=== PATIENT | male | born 1955 | race Caucasian/White ===

== ENCOUNTER 2019-12-02 10:19 | Outpatient (CLI) | payer OTHER, SELFPAY ==
[2019-12-02 11:36] LABS: Alanine Aminotransferase 70 U/L (4-50); Albumin Level 4.3 g/dL (3.5-5.1); Alkaline Phosphatase 70 U/L (38-126); Aspartate Amino Transferase 51 U/L (17-59); Bilirubin,Total 0.7 mg/dL (0.2-1.3); Blood Urea Nitrogen 16 mg/dL (9-20); Calcium 9.6 mg/dL (8.4-10.2); Carbon Dioxide 23 mmol/L (22-30); Chloride 105 mmol/L (98-107); Cholesterol 127 mg/dL (0-200); Estimated Glomerular Filt Rate > 60; Glucose 108 mg/dL (75-110); HDL Direct 38 mg/dL; Potassium 4.3 mmol/L (3.4-5.0); Sodium 140 mmol/L (137-145); Triglycerides 101 mg/dL (<150)
[2019-12-02 11:46] LABS: LDL Cholesterol Direct 77 mg/dL
[2019-12-02 11:59] LABS: Hemoglobin A1C 7.2 % (<5.7)
== END 2019-12-02 10:20 | disposition home or self-care (01) ==
LOC: ANHLAB 10:21
PROVIDERS: PCP Family Medicine; Visit Provider Family Medicine
DX: T78.3XXA Angioneurotic edema, initial encounter (principal); E11.65 Type 2 diabetes mellitus with hyperglycemia
CPT/HCPCS: 36415; 80053; 80061; 83036; 84443

== ENCOUNTER 2020-01-14 21:41 | Emergency (ER) | payer OTHER, SELFPAY ==
--- NOTE | ~2020-01-14 | XR_ITS ---
EXAMINATION: XR chest 2V DATE: 01/14/2020 22:12 INDICATION: Left-sided predominant anterior upper chest pain. TECHNIQUE: PA and lateral views of the chest were obtained. COMPARISON: Chest radiograph dated 02/22/2019 FINDINGS: Lung volumes are decreased. No focal airspace opacities, pulmonary edema, pleural effusion or pneumot horax. Borderline heart size. Cholecystectomy clips in the right upper quadrant. IMPRESSION: 1. Borderline heart size. No acute cardiopulmonary disease. Reviewed, dictated and finalized at location A.
[2020-01-14 21:44] VITALS: BP 200/108; PULSE 108; PULSE 110; RESP 23; TEMP 36.5; O2SAT 100
--- NOTE | 2020-01-14 21:46 | ED.CHESTPAIN ---
HPI - Chest Pain General Chief Complaint: Chest Pain Stated Complaint: chest pain/sob Time Seen by Provider: 01/14/20 21:43 Source: patient and RN notes reviewed Mode of arrival: other Limitations: no limitations History of Present Illness HPI narrative: Pt is a 64 y/o male who presents to the ED with c/o left sided chest pain that radiates down his left arm that began around 20:30 today. Pt describes his pain as squeezing. Pt states that before he had his first stent placed his pain felt like heartburn and then like someone punched him in the chest. Pt denies his pain being similar to having a stent placed. Pt states that his pulse rate was in the 120s while at rest and his blood pressure was high. He states that the last blood pressure reading was 200/110. Pt also reports dyspnea, but he states that he might be feeling short of breath d/t anxiety. Pt also reports a cough, but denies chest congestion, fever, nausea, vomiting, poor appetite, leg pain, and leg swelling. Pt takes ASA 81 mg daily. Pt's cloth colors examiner is Dr. Booker. complaint: chest pain Pertinent past history: prior [facility] Onset (ago): hour(s) (2) Timing of current episode: constant Prior episodes: Yes Onset: during rest Pain location: left chest Pain radiation: left arm Quality: other (squeezing) Associated symptoms: dyspnea and cough Related Data Home Medications Medication Instructions Recorded Confirmed aspirin 81 mg tablet,delayed 81 mg PO DAILY 10/26/19 release atorvastatin 40 mg tablet 40 mg PO DAILY 10/26/19 01/14/20 clopidogrel 75 mg tablet 75 mg PO DAILY 10/26/19 01/14/20 metoprolol succinate 25 mg 25 mg PO DAILY 10/26/19 01/14/20 tablet,extended release 24 hr multivitamin 1 tablet PO DAILY 10/26/19 01/14/20 pantoprazole 40 mg tablet,delayed 40 mg PO BID tablet 10/26/19 01/14/20 release Allergies Allergy/AdvReac Type Severity Reaction Status Date / Time No Known Allergies Allergy Unknown Verified 01/14/20 21:55 Review of Systems Review of Systems: All systems reviewed & are unremarkable except as noted in HPI and below Constitutional: Constitutional: Denies fever(s) and Denies poor appetite Cardiovascular: Cardiovascular: Reports chest pain (left sided, radiates to left arm) and Denies leg edema Respiratory: Respiratory: Denies chest congestion, Reports cough and Reports dyspnea Gastrointestinal: Gastrointestinal: Denies nausea and Denies vomiting Musculoskeletal: Musculoskeletal: Denies other (leg pain) [facility] Past Medical History Medical History (Updated 01/15/20 @ 01:27 by Antonio Lamas MD) Atherosclerotic heart disease of [place] coronary artery with other forms of angina pectoris Chronic ischemic heart disease, unspecified Essential (primary) hypertension Gastritis/duodenitis Gastroesophageal reflux disease with esophagitis Hypothyroidism (acquired) Mixed hyperlipidemia Myocardial infarction (~2011) Tinnitus, unspecified ear Unspecified hearing loss Unspecified sleep apnea Surgical History Surgical History History of arthroscopy of knee (~2008) History of arthroscopy of knee (~1990) History of cardiac catheterization (~2016) History of cardiac catheterization (~2012) History of cardiac catheterization (~2010) History of heart artery stent History of vasectomy (~1997) Hx of cholecystectomy (~07/02/09) Hx of gastric bypass Social History Social History Smoking status: Never smoker Alcohol intake: never Gender identity (if verbalized by the patient): Male Exam Const: General: healthy appearing and no acute distress Nutritional Appearance: obese HENMT: Mouth: Yes lip normal and Yes moist mucous membranes Eyes: Conjunctivae: conjunctivae normal Pupils: Equal, round and reactive pupils present Resp: Effort & Inspection: normal respiratory effort Auscultation: clear to auscultation
--- NOTE | 2020-01-14 21:47 | ECG_ITS ---
Measurements Intervals [place] Rate: 107 P: 19 FL: 199 QRS: 81 QRSD: 92 T: 4 QT: 318 QTc: 425 Interpretive Statements SINUS TACHYCARDIA BORDERLINE R WAVE PROGRESSION, ANTERIOR LEADS NONSPECIFIC T-WAVE ABNORMALITY- INFERIOR LEADS ABNORMAL ECG Electronically Signed On 01-15-2020 7:18:30 CDT by Fito Louie D.O.
[2020-01-14 21:53] LABS: Basophils Absolute Auto 0.1 K/mm3 (0.0-0.1); Basophils Percent Auto 0.5 % (0.2-1.2); Eosinophils Absolute Auto 0.1 K/mm3 (0-0.3); Eosinophils Percent Auto 1.2 % (0-4.4); Hematocrit 51.3 % (42.0-52.0); Hemoglobin 16.5 g/dL (14.0-18.0); Immature Granulocyte Absolute 0.05 K/mm3 (0.00-0.031); Immature Granulocyte Percent A 0.5 % (0-0.5); Lymphocytes Absolute Auto 2.44 K/mm3 (0.9-3.2); Lymphocytes Percent Auto 25.8 % (18.3-44.2); Mean Corpuscular HGB Conc 32.2 g/dl (32-36); Mean Corpuscular Hemoglobin 28.4 pg (26-34); Mean Corpuscular Volume 88.3 fl (80-100); Mean Platelet Volume 9.9 fl (7.4-10.4); Monocytes Absolute Auto 0.9 K/mm3 (0.1-0.6); Monocytes Percent Auto 9.4 % (2.6-8.5); Neutrophils Absolute Auto 5.9 K/mm3 (1.3-6.7); Neutrophils Percent Auto 62.6 % (45.5-73.1); Platelet Count Result 181 k/mm3 (150-375); Red Blood Count 5.81 M/mm3 (4.6-6.20); Red Cell Distribution Width 14.2 % (11.5-14.5); White Blood Count 9.5 K/mm3 (4.5-10.0)
[2020-01-14] MEDS: ASPIRIN 81 MG CHEWABLE TABLET 324 MG PO (21:59)
[2020-01-14 22:03] LABS: Prothrombin Time 12.5 Seconds (11.1-14.7)
[2020-01-14 22:04] LABS: Blood Urea Nitrogen 16 mg/dL (9-20); Calcium 9.1 mg/dL (8.4-10.2); Carbon Dioxide 24 mmol/L (22-30); Chloride 103 mmol/L (98-107); Estimated CRCL calculation 92 ml/min; Estimated Glomerular Filt Rate > 60; Glucose 192 mg/dL (75-110); Partial Thromboplastin Time 26.7 SECONDS (22.3-36.8); Sodium 137 mmol/L (137-145)
--- NOTE | 2020-01-14 22:09 | PC.NURSE ---
PT taken to Xray
[2020-01-14 22:16] LABS: Troponin I < 0.012 ng/mL (0.000-0.034)
--- NOTE | 2020-01-14 22:27 | PC.NURSE ---
Pt offered Nitro per orders. Pt states that he would rather not take if he doesnt have to . Pt states that Nitro makes him lightheaded. Informed Dr. Vazquez of this.
[2020-01-14 23:01] VITALS: BP 146/87; O2SAT 96
[2020-01-14 23:16] VITALS: BP 136/88; O2SAT 96
[2020-01-14 23:31] VITALS: BP 132/91; PULSE 83; RESP 19; O2SAT 97
[2020-01-14 23:46] VITALS: BP 127/85; PULSE 85; RESP 17; O2SAT 97
[2020-01-15] VITALS (7 sets, daily range): BP systolic 113–132; BP diastolic 69–92; PULSE 74–80; RESP 13–21; O2SAT 96–98
[2020-01-15 01:16] LABS: Troponin I < 0.012 ng/mL (0.000-0.034)
== END 2020-01-15 01:40 | disposition home or self-care (01) ==
PROVIDERS: Emergency Provider Emergency Medicine; PCP Family Medicine
DX: R07.9 Chest pain, unspecified (principal); Z95.5 Presence of coronary angioplasty implant and graft; I25.10 Atherosclerotic heart disease of native coronary artery without angina pectoris; I25.9 Chronic ischemic heart disease, unspecified; I10 Essential (primary) hypertension; K21.0 Gastro-esophageal reflux disease with esophagitis; E03.8 Other specified hypothyroidism; E78.2 Mixed hyperlipidemia; I25.2 Old myocardial infarction; G47.30 Sleep apnea, unspecified; Z79.82 Long term (current) use of aspirin; Z98.84 Bariatric surgery status; R00.0 Tachycardia, unspecified; R94.31 Abnormal electrocardiogram [ECG] [EKG]
CPT/HCPCS: 36415; 71046; 80048; 84484; 85025; 85610; 85730; 93005; 99284; A9270

== ENCOUNTER 2020-02-14 16:39 | Observation (INO) | payer OTHER, SELFPAY ==
[2020-02-14] VITALS (12 sets, daily range): BP systolic 125–159; BP diastolic 81–94; PULSE 67–98; RESP 17–20; TEMP 36.6–36.8; O2SAT 93–100; BMI 37.0
--- NOTE | ~2020-02-14 | NM_ITS ---
EXAMINATION: NM regi stress w perfusion DATE: 02/15/2020 15:42 CDT INDICATION: Atypical chest pain TECHNIQUE: Rest images were obtained following intravenous administration of 9.9 mCi Tc99m tetrofosmi n (Myoview). The patient was infused intravenously with Lexiscan (regadenoson). Then, 30.5 mCi Tc99m tetrofosmin (Myoview) was administered intravenously, and stress images were obtained. Data was recon structed into short axis and horizontal and vertical long axis SPECT images. Gated SPECT images were also obtained. COMPARISON: None. FINDINGS: There is no definite reversible or fixed perfusion abnormality to suggest ischemia or infar ction. There is no segmental wall motion abnormality. Left ventricular ejection fraction measures 6 7%. IMPRESSION: 1. No definite ischemia or infarct. 2. Normal left ventricular ejection fraction measuring 67%. Reviewed, dictated and finalized at location A.
--- NOTE | ~2020-02-14 | XR_ITS ---
EXAMINATION: XR chest 2V EXAM DATE: 02/14/2020 17:39 INDICATION: Midsternal chest pain, left-sided jaw pain. TECHNIQUE: Frontal and lateral projections of the chest obtained and reviewed. Comparison is made to prior examination from 01/14/2020. FINDINGS: There are cholecystectomy clips. The lungs are clear. There are no pleural effusions. The cardiomediastinal silhouette is within normal limits. There is no pneumothorax suspected. The bone s and soft tissues are unremarkable. IMPRESSION: No acute cardiopulmonary findings. Reviewed, dictated and finalized at location A.
--- NOTE | 2020-02-14 16:45 | ECG_ITS ---
Measurements Intervals [place] Rate: 92 P: 23 ID: [id number] QRS: 93 QRSD: 86 T: 27 QT: 326 QTc: 404 Interpretive Statements SINUS RHYTHM RIGHT AXIS DEVIATION BORDERLINE R WAVE PROGRESSION, ANTERIOR LEADS BORDERLINE ECG Electronically Signed On 02-15-2020 7:07:09 CDT by Fito Louie D.O.
[2020-02-14 17:37] LABS: Basophils Absolute Auto 0.1 K/mm3 (0.0-0.1); Basophils Percent Auto 0.7 % (0.2-1.2); Eosinophils Absolute Auto 0.1 K/mm3 (0-0.3); Eosinophils Percent Auto 0.9 % (0-4.4); Hematocrit 49.3 % (42.0-52.0); Immature Granulocyte Absolute 0.03 K/mm3 (0.00-0.031); Immature Granulocyte Percent A 0.4 % (0-0.5); Lymphocytes Absolute Auto 1.67 K/mm3 (0.9-3.2); Lymphocytes Percent Auto 22.6 % (18.3-44.2); Mean Corpuscular HGB Conc 32.5 g/dl (32-36); Mean Corpuscular Hemoglobin 28.5 pg (26-34); Mean Corpuscular Volume 87.9 fl (80-100); Mean Platelet Volume 9.9 fl (7.4-10.4); Monocytes Absolute Auto 0.7 K/mm3 (0.1-0.6); Neutrophils Absolute Auto 4.8 K/mm3 (1.3-6.7); Neutrophils Percent Auto 65.4 % (45.5-73.1); Platelet Count Result 168 k/mm3 (150-375); Red Blood Count 5.61 M/mm3 (4.6-6.20); Red Cell Distribution Width 13.9 % (11.5-14.5); White Blood Count 7.4 K/mm3 (4.5-10.0)
--- NOTE | 2020-02-14 17:37 | ED.CHESTPAIN ---
HPI - Chest Pain General Chief Complaint: Chest Pain Stated Complaint: CP,COUGH, UPPER BACK PAIN X FEW DAYS Time Seen by Provider: 02/14/20 17:31 Source: patient Mode of arrival: ambulatory Limitations: no limitations History of Present Illness MD complaint: chest pain Onset (ago): day(s) (1) Prior episodes: Yes Onset: during rest and during exertion Pain location: substernal Pain radiation: jaw/teeth Pain scale (0-10): 4 Quality: tightness Relieving factors: nothing Exacerbating factors: nothing Associated symptoms: nausea and dyspnea Treatment prior to arrival: aspirin Risk Factors Coronary artery disease risk factors: hyperlipidemia and hypertension Related Data Home Medications Medication Instructions Recorded Confirmed aspirin 81 mg tablet,delayed 81 mg PO DAILY 10/26/19 02/14/20 release atorvastatin 40 mg tablet 40 mg PO DAILY 10/26/19 02/14/20 clopidogrel 75 mg tablet 75 mg PO DAILY 10/26/19 02/14/20 metoprolol succinate 25 mg 25 mg PO DAILY 10/26/19 02/14/20 tablet,extended release 24 hr multivitamin 1 tablet PO DAILY 10/26/19 02/14/20 pantoprazole 40 mg tablet,delayed 40 mg PO BID tablet 10/26/19 02/14/20 release lisinopril 10 mg PO DAILY 02/14/20 02/14/20 metformin [Glucophage XR] 500 mg PO BID 02/14/20 02/14/20 Allergies Allergy/AdvReac Type Severity Reaction Status Date / Time No Known Allergies Allergy Unknown Verified 02/14/20 16:54 Review of Systems Review of Systems: All systems reviewed & are unremarkable except as noted in HPI and below Constitutional: Constitutional: Denies body ache(s), Denies chills, Denies excessive sweating, Denies fatigue, Denies fever(s), Denies headache(s), Denies lethargy, Denies malaise, Denies weakness and Denies weight loss Eyes: Eyes: Denies blurry vision, Denies change in vision and Denies loss of vision ENT: Denies dizziness, Denies ear discharge, Denies headache(s), Denies lip swelling, Denies epistaxis, Denies nasal congestion, Denies neck pain, Denies throat swelling and Denies tongue swelling Cardiovascular: Cardiovascular: Denies diaphoresis, Denies rapid heart rate, Denies edema, Denies irregular heart rhythm, Denies lightheadedness, Denies palpitations, Denies dyspnea and Denies dyspnea on exertion Respiratory: Respiratory: Denies chest congestion, Denies cough and Denies hemoptysis Gastrointestinal: Gastrointestinal: Denies abdominal pain, Denies melena, Denies hematochezia, Denies diarrhea, Denies vomiting and Denies hematemesis Musculoskeletal: Musculoskeletal: Denies abnormal gait, Denies deformity, Denies joint swelling, Denies limited range of motion, Denies neck pain and Denies numbness Neurologic: Denies Abnormal speech present, Denies abnormal gait, Denies confusion, Denies dizziness, Denies headache(s), Denies focal weakness, Denies loss of vision, Denies numbness, Denies Other visual disturbances, Denies Sensory deficit (Neuro) and Denies weakness Psychiatric: Psychiatric: Denies confusion, Denies depression, Denies auditory hallucinations, Denies homicidal ideation and Denies suicidal ideation Endocrine: Endocrine: Denies cold intolerance, Denies excessive sweating, Denies fatigue, Denies heat intolerance and Denies palpitations Hematologic/Lymphatic: Hematologic/Lymphatic: Denies easy bleeding and Denies easy bruising Allergic/Immunologic: Allergic/Immunologic: Denies lip swelling, Denies throat swelling and Denies tongue swelling [facility] Past Medical History Medical History (Updated 02/14/20 @ 19:11 by Manjit Yi MD) Atherosclerotic heart disease of [place] coronary artery with other forms of angina pectoris Chronic ischemic heart disease, unspecified Essential (primary) hypertension Gastritis/duodenitis Gastroesophageal reflux disease with esophagitis Hypothyroidism (acquired) Mixed hyperlipidemia Myocardial infarction (~2011) Tinnitus, unspecified ear Unspecified hearing loss Unspecified sleep apnea Surgical History S
[2020-02-14 17:47] LABS: Prothrombin Time 12.8 Seconds (11.1-14.7)
[2020-02-14 17:48] LABS: Partial Thromboplastin Time 27.6 SECONDS (22.3-36.8)
[2020-02-14 17:49] LABS: Blood Urea Nitrogen 14 mg/dL (9-20); Calcium 9.6 mg/dL (8.4-10.2); Carbon Dioxide 23 mmol/L (22-30); Chloride 106 mmol/L (98-107); Estimated CRCL calculation 93 ml/min; Estimated Glomerular Filt Rate > 60; Glucose 157 mg/dL (75-110); Lipase 87 U/L (23-300); Potassium 3.9 mmol/L (3.4-5.0); Sodium 138 mmol/L (137-145)
[2020-02-14 18:01] LABS: Troponin I < 0.012 ng/mL (0.000-0.034)
[2020-02-14 18:01] LABS: D Dimer 0.27 ug/mL (<0.48)
[2020-02-14] MEDS: NITROGLYCERIN OINTMENT 1 INCH DOSE (18:59)
--- NOTE | 2020-02-14 20:22 | ADMGEN ---
This patient, Alexandre Owens, was admitted to IMU Room 214-01. Patient/family oriented to hospital policies and general routines including ID bracelet, bed and alarms, visiting hours, pain management, procedures, bathroom and other care routines, personal items, smoking policy, room service/diet, and visiting hours. Valuables list has been completed. Information on how to activate the Rapid Response Team has been discussed. Patient/Family are encouraged to report perceived risks to care and to ask questions if they do not understand what they are told or what they should do.
[2020-02-14 21:30] LABS: Troponin I < 0.012 ng/mL (0.000-0.034)
--- NOTE | 2020-02-14 22:47 | PM.IMHP ---
H&P: HPI History of Present Illness Chief complaint: Chest Pain Narrative: Alexandre Owens is a 64 year old male who has a history of angina. The patient has a history of having 2 cardiac stents in the past the patient was here approximately 3 weeks ago with some chest discomfort and it coronary artery disease was ruled out and it was thought that it was possibly gastroesophageal reflux disease. The patient stated that he has been having chest pain on and off for some time now. The patient stated yesterday he ate some spicy beef jerky and then went on a 3 mi walk. He stated that he had some chest pain prior to the walk but is E continue to walk got better. He stated when he got into his car he had some pain down his left arm and up his neck. He is thought that he would just go home and try to relax. The patient tried Pepcid and some other stuff for his GI issues. He was passing some gas and that seemed to help somewhat. He has been taking his routine medication. He sees Dr. Booker as his flight teacher. The patient woke up at 2:00 a.m. this morning and was having some chest discomfort. His alarm on off at 4:00 a.m. and took a shower. The patient stated he still just did not feel right is also diabetic in the 100s. Which is normal for him. Troponins have been negative so far. I had asked ED physician to consult the patient's flight teacher. The patient was given nitro paste and aspirin. He stated he is feeling much better now. Date of service is 02/14/2020 EKG was read as borderline R-wave progression anterior leads sinus tachycardia nonspecific T-wave abnormalities. Review of Systems Review of Systems: Narrative: The patient stated that he had a cardiac catheterization in 2011 and had a stent placed to the RCA in 2011 and then had another 1 placed inside of that 1 in 2013. He stated that he has had cardiac catheterization since then and has some blockages button only minimally. All systems reviewed & are unremarkable except as noted in HPI and below Constitutional: Constitutional: Reports as per HPI and Reports no additional constitutional complaints Eyes: Eyes: Reports as per HPI and Reports no additional eye complaints ENT: Reports system reviewed and no additional complaints, except as documented and Reports Normal hearing present Cardiovascular: Cardiovascular: Reports no additional cardiovascular complaints Respiratory: Respiratory: Reports no additional respiratory complaints and Reports no additional respiratory complaints Gastrointestinal: Gastrointestinal: Reports as per HPI and Reports no additional gastrointestinal complaints Musculoskeletal: Musculoskeletal: Reports no additional musculoskeletal complaints Integumentary/Breasts: Skin/Breast: Reports system reviewed and no additional complaints, except as docu and Reports as per HPI Neurologic: Reports system reviewed and no additional complaints, except as documented, Reports as per HPI and Reports Normal hearing present Psychiatric: Psychiatric: Reports no additional psychiatric complaints and Reports as per HPI Endocrine: Endocrine: Reports no additional endocrine complaints Hematologic/Lymphatic: Hematologic/Lymphatic: Reports no additional hematologic/lymphatic complaints Allergic/Immunologic: Allergic/Immunologic: Reports no additional allergic/immunologic complaints [facility] Past Medical History Medical History (Updated 02/14/20 @ 23:02 by Samantha Venegas NP) Atherosclerotic heart disease of [place] coronary artery with other forms of angina pectoris Chronic ischemic heart disease, unspecified Essential (primary) hypertension Gastritis/duodenitis Gastroesophageal reflux disease with esophagitis GERD with apnea Hypothyroidism (acquired) Mixed hyperlipidemia Myocardial infarction (~2011) Obstructive sleep apnea Tinnitus, unspecified ear Unspecified hearing loss Unspecified sleep apnea Surgical History Surgical History (Updated 02/14/20 @ 22:54 by Supa
[2020-02-15] VITALS (13 sets, daily range): BP systolic 103–143; BP diastolic 61–89; PULSE 54–85; RESP 18–22; TEMP 35.9–36.8; O2SAT 97–98
[2020-02-15 00:25] LABS: Troponin I < 0.012 ng/mL (0.000-0.034)
[2020-02-15 04:48] LABS: Basophils Percent Auto 0.6 % (0.2-1.2); Eosinophils Absolute Auto 0.2 K/mm3 (0-0.3); Eosinophils Percent Auto 2.3 % (0-4.4); Hematocrit 46.3 % (42.0-52.0); Hemoglobin 14.9 g/dL (14.0-18.0); Immature Granulocyte Absolute 0.04 K/mm3 (0.00-0.031); Immature Granulocyte Percent A 0.6 % (0-0.5); Lymphocytes Absolute Auto 1.67 K/mm3 (0.9-3.2); Lymphocytes Percent Auto 24.3 % (18.3-44.2); Mean Corpuscular HGB Conc 32.2 g/dl (32-36); Mean Corpuscular Hemoglobin 28.5 pg (26-34); Mean Corpuscular Volume 88.5 fl (80-100); Mean Platelet Volume 9.5 fl (7.4-10.4); Monocytes Absolute Auto 0.7 K/mm3 (0.1-0.6); Monocytes Percent Auto 10.1 % (2.6-8.5); Neutrophils Absolute Auto 4.3 K/mm3 (1.3-6.7); Neutrophils Percent Auto 62.1 % (45.5-73.1); Platelet Count Result 150 k/mm3 (150-375); Red Blood Count 5.23 M/mm3 (4.6-6.20); Red Cell Distribution Width 13.9 % (11.5-14.5); White Blood Count 6.9 K/mm3 (4.5-10.0)
[2020-02-15] MEDS: LEVOTHYROXINE SODIUM 88 MCG TABLET PO (06:41)
[2020-02-15 06:50] LABS: Alanine Aminotransferase 44 U/L (4-50); Albumin Level 3.5 g/dL (3.5-5.1); Alkaline Phosphatase 68 U/L (38-126); Aspartate Amino Transferase 33 U/L (17-59); Bilirubin,Total 0.5 mg/dL (0.2-1.3); Blood Urea Nitrogen 15 mg/dL (9-20); CRP 0.9 mg/dL (<1.0); Calcium 8.8 mg/dL (8.4-10.2); Carbon Dioxide 25 mmol/L (22-30); Chloride 104 mmol/L (98-107); Estimated CRCL calculation 93 ml/min; Estimated Glomerular Filt Rate > 60; Glucose 186 mg/dL (75-110); Lipase 117 U/L (23-300); Magnesium 1.8 mg/dL (1.6-2.3); Potassium 4.2 mmol/L (3.4-5.0); Sodium 135 mmol/L (137-145)
[2020-02-15 07:57] LABS: Glucose Point of Care 163 (65-105)
[2020-02-15] MEDS: MULTIVITAMINS THERAPEUTIC TAB (*BKC) 1 TABLET PO (08:32)
[2020-02-15] MEDS: PANTOPRAZOLE 40 MG TABLET PO (08:32)
[2020-02-15] MEDS: METOPROLOL SUCCINATE EXT REL 25 MG TABCR PO (08:32)
[2020-02-15] MEDS: ASPIRIN 81 MG ENTERIC TABLET PO (08:33)
[2020-02-15] MEDS: lisinopriL 10 MG TABLET PO (08:33)
[2020-02-15] MEDS: ATORVASTATIN 40 MG TABLET PO (08:34)
[2020-02-15] MEDS: CLOPIDOGREL BISULFATE 75 MG TABLET PO (08:54)
--- NOTE | 2020-02-15 10:08 | PM.DS ---
DS: Diagnosis Admitting Diagnosis Admitting Diagnosis: Chest pain, unspecified Discharge Diagnosis (1) Chest pain in adult: Code(s): R07.9 - Chest pain, unspecified Status: Acute Assessment and Plan: Pain is somewhat atypical for angina (at rest or with exertion, mild, transient, varying location, no associated symptoms). However, it did occur following exertion after a meal and also radiated to arm and neck; but he walked 3 miles in the interim. He is diabetic, so is at higher risk for atypical pain EKG w/o change from prior TnI negative x 3 Negative stress test for simliar symptoms in 02/2019 No sign of ACS. Lexiscan stress negative 02/14. Home with outpatient PCP and cardiology f/u Resume normal activity (2) Essential (primary) hypertension: Code(s): I10 - Essential (primary) hypertension Status: Chronic Assessment and Plan: Continue with metoprolol and lisinopril. (3) Mixed hyperlipidemia: Code(s): E78.2 - Mixed hyperlipidemia Status: Chronic Assessment and Plan: Continue with atorvastatin (4) Obstructive sleep apnea: Code(s): G47.33 - Obstructive sleep apnea (adult) (pediatric) Status: Chronic Assessment and Plan: CPAP. (5) Hypothyroidism (acquired): Code(s): E03.9 - Hypothyroidism, unspecified Status: Acute Assessment and Plan: TSH WNL. Continue levothyroxine. (6) Diabetes mellitus type 2, uncontrolled: Code(s): E11.65 - Type 2 diabetes mellitus with hyperglycemia Status: Acute Assessment and Plan: Resume home regimen at discharge (7) Atherosclerotic heart disease of [place] coronary artery with other forms of angina pectoris: Code(s): I25.118 - Atherosclerotic heart disease of [place] coronary artery with other forms of angina pectoris Status: Acute Assessment and Plan: Continue aspirin and Plavix. He received 1 stent in 2011 to his RCA and then another stents inside of that stent in 2013. (8) GERD with apnea: Code(s): K21.9 - Gastro-esophageal reflux disease without esophagitis; R06.81 - Apnea, not elsewhere classified Status: Chronic Assessment and Plan: Continue with patient's Carafate and pantoprazole. DS: Summary Hospital Course Reason for hospitalization: Chest pain Hospital Course: Admitted 02/13 with atypical chest pain. Remained stable throughout hospitalization. Minimal symptoms. Negative troponins EKG and Lexiscan stress test. Was seen by Cardiology during hospitalization. Time Spent with Patient Time attestation: Total time spent providing and/or coordinating discharge services: 35 min Exam Narrative: Exam Narrative: HEENT: EOMI, PERRL, sclerae nonicteric, pharyngeal mucosa pink and intact NECK: No JVD CHEST: Clear to auscultation. Normal effort. HEART: NL S1/S2, regular, no murmur ABDOMEN: BS+, soft, nontender, no mass, no bruits EXTREMITIES: No cyanosis, edema, or clubbing NEUROLOGIC: CN intact and symmetric to inspection. MUSCULOSKELETAL: Tone and strength symmetric. PSYCH: Alert. Oriented to person, place, and time. DS: Data Data Completed and Pending Labs on day of discharge: Labs from last 24 hours 02/15/20 02/15/20 02/15/20 07:46 04:20 04:20 WBC RBC Hgb Hct MCV MCH MCHC RDW Plt Count MPV Immature Gran % (Auto) Neut % (Auto) Lymph % (Auto) [place] % (Auto) Eos % (Auto) Baso % (Auto) Lymph # (Auto) [place] # (Auto) Eos # (Auto) Baso # (Auto) Abs Immat Gran (auto) Absolute Neuts (auto) Absolute Nucleated RBC Nucleated RBC % PT INR APTT D-Dimer Sodium 135 L Potassium 4.2 Chloride 104 Carbon Dioxide 25 BUN 15 Creatinine 0.90 Estim Creat Clear Calc 93 Estimated GFR > 60 Glucose 186 H POC Capillary Glucose 163 H Calcium 8.8 Magnesium 1.8 Total Bilirubin 0.5 AST 33 ALT 44 Alkal
[2020-02-15 12:16] LABS: Glucose Point of Care 137 (65-105)
--- NOTE | 2020-02-15 12:26 | EST_ITS ---
Patient Info Name: Alexandre Owens Age: 64 years : 1955 Gender: Male Ht: 69 in Wt: 250 lbs BSA: 2.40 m2 Exam Date: 02/15/2020 2:45 PM Patient Status: Inpatient Admit Date: 02/14/2020 Staff Ordering Physician: Jimy Booker MD Attending Provider: Conrado Garcia MD Exam Type: CA stress regi w NM Study Info A regadenoson stress test was performed. Summary 1. No abnormal ST/T wave changes with exercise. 2. Please correlate with nuclear medicine images, reported separately. Protocol: Lexiscan Stress ECG Details Stage: REST Duration (min): 1 min : 3 sec HR (bpm): 63 SBP (mmHg): 148 DBP (mmHg): 78 Stage: REST Duration (min): 2 min : 26 sec HR (bpm): 65 SBP (mmHg): 148 DBP (mmHg): 78 Stage: STAGE 1 Duration (min): 1 min : 0 sec HR (bpm): 74 SBP (mmHg): 144 DBP (mmHg): 81 Stage: RECOVERY Duration (min): 1 min : 0 sec HR (bpm): 88 SBP (mmHg): 144 DBP (mmHg): 81 Stage: RECOVERY Duration (min): 2 min : 0 sec HR (bpm): 83 SBP (mmHg): 144 DBP (mmHg): 81 Stage: RECOVERY Duration (min): 3 min : 0 sec HR (bpm): 80 SBP (mmHg): 180 DBP (mmHg): 86 Stage: RECOVERY Duration (min): 4 min : 0 sec HR (bpm): 78 SBP (mmHg): 180 DBP (mmHg): 86 Stage: RECOVERY Duration (min): 5 min : 0 sec HR (bpm): 83 SBP (mmHg): 187 DBP (mmHg): 89 Stage: RECOVERY Duration (min): 6 min : 0 sec HR (bpm): 76 SBP (mmHg): 187 DBP (mmHg): 89 Stage: RECOVERY Duration (min): 7 min : 0 sec HR (bpm): 77 SBP (mmHg): 187 DBP (mmHg): 88 Stage: RECOVERY Duration (min): 8 min : 0 sec HR (bpm): 77 SBP (mmHg): 187 DBP (mmHg): 88 Stage: RECOVERY Duration (min): 9 min : 0 sec HR (bpm): 77 SBP (mmHg): 187 DBP (mmHg): 88 Stage: RECOVERY Duration (min): 9 min : 36 sec HR (bpm): 76 SBP (mmHg): 187 DBP (mmHg): 88 Rest HR: 65 bpm Peak HR: 93 bpm Rest Sys BP: 148 mmHg Peak Sys BP: 187 mmHg Max Pred HR: 158 bpm % Max Pred HR: 59 % Target HR: 134 bpm Max RPP: 17,391 bpm*mmHg Target HR Summary: Hemodynamic response to exercise was normal BP Response: Normal blood pressure response Termination Reason: Completed protocol Cardiac Symptoms: None Total Time: 1 min : 0 sec Rest Bassett BP: 78 mmHg Peak [place] BP: 89 mmHg Total Dose: 0.4 mg Resting ECG Normal sinus rhythm. First degree A-V Block. Poor R wave progression. Stress ECG No abnormal ST/T wave changes with exercise. Arrhythmias None. Report Signatures
--- NOTE | 2020-02-15 13:05 | PM.CNCAR ---
Assessment and Plan Assessment and plan (1) Chest pain in adult: Code(s): R07.9 - Chest pain, unspecified Status: Acute Assessment and Plan: Atypical. Etiologies are numerous including anxiety, musculoskeletal, GERD, hypertension related and of course angina is still possible. Ischemic evaluation to be performed. Will order a Lexiscan myocardial perfusion study. Discontinue nitroglycerin. (2) Atherosclerotic heart disease of [place] coronary artery with other forms of angina pectoris: Code(s): I25.118 - Atherosclerotic heart disease of [place] coronary artery with other forms of angina pectoris Status: Acute Assessment and Plan: Continue aspirin, Plavix, statin, beta-ne, ANDRE-inhibitor (3) Obstructive sleep apnea: Code(s): G47.33 - Obstructive sleep apnea (adult) (pediatric) Status: Chronic Assessment and Plan: Encourage compliance (4) Essential (primary) hypertension: Code(s): I10 - Essential (primary) hypertension Status: Chronic Assessment and Plan: Above goal. Will increase his metoprolol to 50 mg p.o. daily as well as his lisinopril to 20 mg p.o. daily History of Present Illness History of Present Illness Consult date/time: 02/15/20 13:05 Requesting physician: Conrado Garcia MD Consult reason: chest pain Reason For Visit: Chest Pain Narrative: Date of service 02/15/2020: History: Patient is a 64-year-old male patient of mine with history of coronary disease and myocardial infarction dating back to 2011. He underwent a drug-eluting stent to the RCA at that time. He had InStent restenosis and another stent was placed in 2013. Stress test in 2017 did not show any ischemia and he does have history of gastritis and undergone EGDs in the past. Previous [place] pain was GERD like symptoms. He did have another coronary angiogram in 2017 which showed minimal InStent restenosis of 10-20% in the proximal RCA stent. LAD with ostial calcification and haziness in the mid segment which was further evaluated via IVUS. 30% on 10/18 lesion. When compared to previous angiograms, this area of haziness was thought to be unchanged. No stent was performed. He came to this hospital recently because of chest pain. 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 He also has some other stress at home. When here in this hospital a couple of weeks ago his blood pressure upon presentation was over 200 systolic. He did have a telephone visit with our nurse practitioner on January 22 at that point it was decided to order an echocardiogram but no ischemic evaluation with recommended. He called the office yesterday with recurrence chest pain. He states that 2 days ago he started to have chest pain that was worsened at rest and actually felt better when restart to walk. At the end of his walk though he did start to notice some symptoms up into his jaw and left shoulder area. He felt that his heart rate was high and his blood pressure was high. He went home and went to sleep. Dose symptoms predominantly went away but he still felt ?funny? yesterday. His blood pressure was still a bit elevated in the 140-150 range. He then had more heartburn like symptoms. He called our office yesterday and refused to take nitroglycerin but finally agreed to take some Tums and antacids which do not seem to help his symptoms. Whenever we contacted him again he was still having ongoing symptoms and he was hesitant to go to the ER but upon further pushing, decided to come to the hospital for further workup and evaluation. He has since rule out for myocardial infarction. He did receive a nitroglycerin paste which he states did seem to help his blood pressure and possibly helped his pain symptoms also. There is no associated shortness of breath nausea diaphoresis. He has not had any recent syncope, presyncope, paroxysmal nocturnal dyspnea, o
[2020-02-15] MEDS: SUCRALFATE 1 GM TABLET PO (13:14)
[2020-02-15 16:49] LABS: Glucose Point of Care 188 (65-105)
== END 2020-02-15 18:16 | disposition home or self-care (01) ==
LOC: ANHED 19:15 → ANHIMU 02-15 10:20
PROVIDERS: Family Medicine; Nurse Practitioner; Admitting Provider Family Medicine; Emergency Provider Emergency Medicine; PCP Family Medicine; Visit Provider Internal Medicine
DX: R07.89 Other chest pain (principal); I10 Essential (primary) hypertension; E78.2 Mixed hyperlipidemia; K21.9 Gastro-esophageal reflux disease without esophagitis; G47.33 Obstructive sleep apnea (adult) (pediatric); E03.9 Hypothyroidism, unspecified; E11.65 Type 2 diabetes mellitus with hyperglycemia; I25.118 Atherosclerotic heart disease of native coronary artery with other forms of angina pectoris; I25.9 Chronic ischemic heart disease, unspecified; I25.2 Old myocardial infarction; Z79.82 Long term (current) use of aspirin; Z79.84 Long term (current) use of oral hypoglycemic drugs; Z79.899 Other long term (current) drug therapy; Z95.5 Presence of coronary angioplasty implant and graft
CPT/HCPCS: 36415; 71046; 78452; 80048; 80053; 83690; 83735; 84443; 84484; 85025; 85380; 85610; 85730; 86140; 93005; 93017; 99285; A9270; A9502; G0378; J2785

== ENCOUNTER 2020-04-06 12:48 | Outpatient (CLI) | payer OTHER, SELFPAY ==
[2020-04-06 13:16] LABS: Alanine Aminotransferase 67 U/L (4-50); Albumin Level 4.3 g/dL (3.5-5.1); Alkaline Phosphatase 82 U/L (38-126); Aspartate Amino Transferase 44 U/L (17-59); Bilirubin,Total 0.6 mg/dL (0.2-1.3); Blood Urea Nitrogen 14 mg/dL (9-20); Calcium 9.2 mg/dL (8.4-10.2); Carbon Dioxide 25 mmol/L (22-30); Chloride 105 mmol/L (98-107); Cholesterol 113 mg/dL (0-200); Estimated Glomerular Filt Rate > 60; Glucose 155 mg/dL (75-110); HDL Direct 31 mg/dL; Potassium 4.3 mmol/L (3.4-5.0); Sodium 137 mmol/L (137-145); Triglycerides 90 mg/dL (<150)
[2020-04-06 13:27] LABS: LDL Cholesterol Direct 66 mg/dL
[2020-04-06 13:47] LABS: Thyroid Stimulating Hormone 0.797 uIU/mL (0.465-4.680)
== END 2020-04-06 12:49 | disposition home or self-care (01) ==
LOC: ANHLAB 12:49
PROVIDERS: PCP Family Medicine; Visit Provider Family Medicine
DX: E03.9 Hypothyroidism, unspecified (principal); E11.9 Type 2 diabetes mellitus without complications
CPT/HCPCS: 36415; 80053; 80061; 83036; 84443

== ENCOUNTER 2020-06-29 01:22 | Outpatient (CLI) | payer OTHER, SELFPAY ==
[2020-06-29 18:03] LABS: SARS-CoV-2 RNA PCR Negative
== END 2020-06-29 01:23 | disposition home or self-care (01) ==
LOC: ANHCOVIDDT 01:23
PROVIDERS: PCP Family Medicine; Visit Provider Internal Medicine Cardiovascular Disease
DX: Z01.812 Encounter for preprocedural laboratory examination (principal); Z20.828 Contact with and (suspected) exposure to other viral communicable diseases
CPT/HCPCS: 87635; C9803; U0003

== ENCOUNTER 2020-07-02 01:43 | Day surgery (SDC) | payer OTHER, SELFPAY ==
[2020-07-01 13:28] VITALS: BMI 35.7
[2020-07-02] VITALS (8 sets, daily range): BP systolic 112–139; BP diastolic 65–89; PULSE 60–71; RESP 13–17; TEMP 36.1; O2SAT 95–97; BMI 35.7
[2020-07-02 09:09] LABS: Basophils Percent Auto 0.7 % (0.2-1.2); Eosinophils Absolute Auto 0.1 K/mm3 (0-0.3); Eosinophils Percent Auto 2.1 % (0-4.4); Hematocrit 50.6 % (42.0-52.0); Hemoglobin 16.6 g/dL (14.0-18.0); Immature Granulocyte Absolute 0.05 K/mm3 (0.00-0.031); Immature Granulocyte Percent A 0.9 % (0-0.5); Lymphocytes Absolute Auto 1.44 K/mm3 (0.9-3.2); Lymphocytes Percent Auto 24.6 % (18.3-44.2); Mean Corpuscular HGB Conc 32.8 g/dl (32-36); Mean Corpuscular Hemoglobin 28.6 pg (26-34); Mean Corpuscular Volume 87.2 fl (80-100); Monocytes Absolute Auto 0.6 K/mm3 (0.1-0.6); Monocytes Percent Auto 10.3 % (2.6-8.5); Neutrophils Absolute Auto 3.6 K/mm3 (1.3-6.7); Neutrophils Percent Auto 61.4 % (45.5-73.1); Platelet Count Result 129 k/mm3 (150-375); Red Cell Distribution Width 13.9 % (11.5-14.5); White Blood Count 5.9 K/mm3 (4.5-10.0)
[2020-07-02 09:18] LABS: INR 1.1; Prothrombin Time 13.5 Seconds (11.1-14.7)
[2020-07-02 09:22] LABS: Alanine Aminotransferase 46 U/L (4-50); Alkaline Phosphatase 87 U/L (38-126); Anion Gap 9 mmol/L (8-16); Aspartate Amino Transferase 37 U/L (17-59); Bilirubin,Total 0.6 mg/dL (0.2-1.3); Blood Urea Nitrogen 18 mg/dL (9-20); Carbon Dioxide 25 mmol/L (22-30); Chloride 101 mmol/L (98-107); Estimated CRCL calculation 82 ml/min; Estimated Glomerular Filt Rate > 60; Glucose 272 mg/dL (75-110); Potassium 4.1 mmol/L (3.4-5.0); Sodium 135 mmol/L (137-145)
--- NOTE | 2020-07-02 09:49 | WPDMODSED ---
Moderate Sedation Note-Pt Data Patient Data Allergies Allergy/AdvReac Type Severity Reaction Status Date / Time No Known Allergies Allergy Unknown Verified 07/02/20 09:12 Home Medications Medication Instructions Recorded Confirmed Type levothyroxine 88 mcg tablet 88 mcg PO DAILY #90 tablet 09/01/19 07/01/20 Rx aspirin 81 mg tablet,delayed 81 mg PO DAILY 10/26/19 07/01/20 History release atorvastatin 40 mg tablet 40 mg PO DAILY 10/26/19 07/01/20 History clopidogrel 75 mg tablet 75 mg PO DAILY 10/26/19 07/01/20 History multivitamin 1 tablet PO DAILY 10/26/19 07/01/20 History sucralfate 1 gram tablet 1 gm PO QID #120 tablet 12/27/19 07/01/20 Rx metformin [Glucophage XR] 500 mg PO BID 02/14/20 07/01/20 History metoprolol succinate 50 mg PO DAILY #30 tablet 02/15/20 07/01/20 Rx pantoprazole 40 mg tablet,delayed 40 mg PO BID #180 tablet 02/19/20 07/01/20 Rx release fluconazole 150 mg PO DAILY 07/01/20 07/01/20 History lisinopril 40 mg PO DAILY 07/01/20 07/01/20 History Current Medications: Active Medications Sodium Chloride (Normal Saline Iv) 500 mls @ 100 mls/hr IV CONT .Q5H CRYSTAL Sedation/Anesthesia: No previous sedation/anesthesia problems (including family history). 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 No alcohol illicit drugs or marijuana. He is and lives with his who works for [employer] they live here in [place]. They have 3 children in their live and well. Patient desires to be a full code. Smoking status: Never smoker Second hand tobacco smoke exposure: No Alcohol intake: never Substance use: never Substance use type: does not use Living arrangements: with family Gender identity (if verbalized by the patient): Male Spiritual care concerns: No Agree to blood products: Yes Mod Sed Physical Exam Physical Exam Pre Procedural Exam: Normal: Airway Hours since solid foods: 10 Hours since liquid intake: 10 Internal Medicine - PN: Obj Da Vital Signs Vital Signs: Vital Signs - 24 hr 07/02/20 09:12 Temperature 36.1 C L Pulse Rate 70 Respiratory Rate 15 Blood Pressure 139/89 Pulse Oximetry 97 Meds/Results Medications: Active Medications Generic Name Dose Route Start Last Admin Trade Name Landonq PRN Reason Stop Dose Admin Sodium Chloride 500 mls @ 100 mls/hr 07/02/20 06:20 Normal Saline Iv IV CONT .Q5H CRYSTAL Labs CBC & Chem 7: 07/02/20 08:55 07/02/20 08:55 Labs: Laboratory Results - last 24 hr 07/02/20 07/02/20 07/02/20 08:55 08:55 08:55 WBC 5.9 RBC 5.80 Hgb 16.6 Hct 50.6 MCV 87.2 MCH 28.6 MCHC 32.8 RDW 13.9 Plt Count 129 L MPV 10.0 Immature Gran % (Auto) 0.9 H Neut % (Auto) 61.4 Lymph % (Auto) 24.6 Rowan % (Auto) 10.3 H Eos % (Auto) 2.1 Baso % (Auto) 0.7 Lymph # (Auto) 1.44 [place]an # (Auto) 0.6 Eos # (Auto) 0.1 Baso # (Auto) 0.0 Abs Immat Gran (auto) 0.05 H Absolute Neuts (auto) 3.6 Absolute Nucleated RBC 0.0 Nucleated RBC % 0.0 PT 13.5 INR 1.1 Sodium 135 L Potassium 4.1 Chloride 101 Carbon Dioxide 25 Anion Gap 9 BUN 18 Creatinine 1.00 Estim Creat Clear Calc 82 Estimated GFR > 60 Glucose 272 H Calcium 9.0 Total Bilirubin 0.6 AST 37 ALT 46 Alkaline Phosphatase 87 Total Protein 7.0 Albumin 4.0 ASA Classification/Sedation ASA Classification/Sedation Risks: Risks, benefits and alternatives explained and patient/family accepted plan for sedation. Patient re-evaluated immediately prior to sedation.
--- NOTE | 2020-07-02 09:58 | PM.IMHP ---
H&P: HPI History of Present Illness Date/Time: 07/02/20 09:58 Chief complaint: Chest Pain, CAD Narrative: Alexandre Owens is a 65 year old male Known CAD, history of non ST elevation [place]; history of PCI/stenting of RCA in 2011, followed by drug-eluting stent placement in 2013 for InStent restenoses; hypertension, type 2 diabetes mellitus, hypothyroidism. Patient has been referred for cardiac catheterization in the setting of occasional chest discomfort with features atypical for ischemia. Review of Systems Review of Systems: Narrative: General: Negative for fever, chills, fatigue Psychological: Negative for anxiety, depression Ophthalmic: negative for loss of vision ENT: Negative for epistaxis, headaches Allergy and immunology: Negative for hives, nasal congestion Hematologic and lymphatic: Negative for overt bleeding problems Endocrine: Negative for hot flashes, palpitations Respiratory: Negative for cough, hemoptysis Cardiovascular: Positive for chest pain, mostly nonexertional Gastrointestinal: positive for GERD like symptoms as per patient Musculoskeletal: Negative for myalgia, joint pains Neurological: Negative for weakness Dermatological: Negative for rash, skin discoloration PMFSH Past Medical History Medical History Atherosclerotic heart disease of [place] coronary artery with other forms of angina pectoris Chronic ischemic heart disease, unspecified Essential (primary) hypertension Gastritis/duodenitis Gastroesophageal reflux disease with esophagitis GERD with apnea Hypothyroidism (acquired) Mixed hyperlipidemia Myocardial infarction (~2011) Obstructive sleep apnea Tinnitus, unspecified ear Unspecified hearing loss Unspecified sleep apnea Surgical History Surgical History History of arthroscopy of knee (~2008) History of arthroscopy of knee (~1990) Bilaterally History of cardiac catheterization (~2016) History of cardiac catheterization (~2012) History of cardiac catheterization (~2010) History of heart artery stent Stent to the RCA in 2011 and then another stent was placed decided that in 2013. History of vasectomy (~1997) Hx of cholecystectomy (~07/02/09) Hx of gastric bypass Family History Family History Mother Family history of obesity Hypertension Family history of cardiovascular disease Family history of dementia Family history of rheumatoid arthritis, Onset Age: 81 Family history of pancreatic cancer, Onset Age: 81 Father Depression, Onset Age: 71 Family history of cardiovascular disease, Onset Age: 71 Diabetes mellitus, Onset Age: 71 Family history of coronary artery disease, Onset Age: 71 Sibling Depression Sibling Acute myocardial infarction at the age of 37 either from MRI RN aneurysm. No autopsy was performed at that time. 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 No alcohol illicit drugs or marijuana. He is and lives with his who works for [employer] they live here in [place]. They have 3 children in their live and well. Patient desires to be a full code. Smoking status: Never smoker Second hand tobacco smoke exposure: No Alcohol intake: never Substance use: never Substance use type: does not use Living arrangements: with family Gender identity (if verbalized by the patient): Male Spiritual care concerns: No Agree to blood products: Yes Meds Home Medications and Allergies Home Medications Medication Instructions Recorded Confirmed Type levothyroxine 88 mcg tablet 88 mcg PO DAILY #90 tablet 09/01/19 07/01/20 Rx aspirin 81 mg tablet,delayed 81 mg PO DAILY 10/26/19 07/01/20 Histo
--- NOTE | 2020-07-02 10:43 | WPDCARDPROC ---
Cardiac Cath Procedure Note Date of procedure:: 07/02/20 Performing physician:: Davidson Montiel MD Procedure Procedure note:: LEFT HEART CATHETERIZATION AND CORONARY ANGIOGRAM REPORT DATE OF PROCEDURE: 07/02/2020 INDICATION FOR PROCEDURE: chest pain; known CAD BRIEF CLINICAL HISTORY:Alexandre Owens is a 65 year old male Known CAD, history of non ST elevation [place]; history of PCI/stenting of RCA using a 2.5 x 28 mm Xience everolimus eluting stent on 12/14/2011; followed by placement of a 2.5 x 12 mm everolimus eluting stent on 11/09/2013 for InStent restenoses; hypertension, type 2 diabetes mellitus, hypothyroidism. Patient was referred for cardiac catheterization to re-evaluate coronary anatomy and rule out InStent restenosis in the setting of chest pain with somewhat atypical features . His recent cardiac catheterization was performed on 07/22/2017 at which time he was found to have hazy discrete lesion in the mid LAD which on intravascular ultrasound was reportedly a shelf of calcium or an old healed dissection, not significantly changed compared to the previous angiograms. Patient was managed medically. Benefits and risks of the procedure were discussed with the patient in depth, and informed consent was obtained prior to the procedure. Risks of the procedure include but are not limited to vascular complications including groin hematoma, retroperitoneal bleed, vessel perforation; periprocedural WI, cardiac arrhythmias, stroke, contrast induced nephropathy, and . After discussing all the benefits, risks and alternatives, patient was willing to proceed with the procedure. PROCEDURES PERFORMED: 1. Left heart catheterization- Selective left and right coronary angiogram; left ventriculogram and hemodynamic assessment 2. Selective right common femoral angiogram and deployment of Angio-Seal hemostatic device 3. Moderate sedation-CPT code 69380 MODERATE SEDATION: Midazolam 2 mg; fentanyl 50 mcg; Start time 1012 , Stop time 1030 ; Total [id number] time 18 minutes; Federica Zaidi RN was trained observer for moderate sedation. ACCESS SITE: Right common femoral artery PROCEDURE NOTE: After obtaining informed consent, patient was brought to catheterization lab and prepped and draped in a usual sterile manner. After local anesthesia with lidocaine, right common femoral artery access was taken with micropuncture needle followed by insertion of a 6 Ethiopian sheath. Selective left and right coronary angiogram was performed using 5 Ethiopian JL4 and JR4 catheters respectively. Orthogonal views were taken. Next, a 5 Ethiopian pigtail catheter was advanced in the LV cavity and was flushed with normal saline. LV pressure measurement was performed. After this, left ventriculogram was performed. The catheter was flushed again, and gradient across the aortic valve was measured on the pullback of the catheter. Finally, selective right common femoral angiogram was performed followed by successful deployment of Angio-Seal vascular closure device. Patient tolerated procedure well without any immediate procedure related complications. FINDINGS: LEFT MAIN CORONARY: The left main coronary artery is a medium caliber, long vessel, without significant focal stenosis. The vessel bifurcates into LAD and left circumflex branches. LEFT ANTERIOR DESCENDING ARTERY: The LAD is a medium caliber vessel, tapers distally, becomes a small caliber vessel and reaches the LV apex. There is tortuosity in the mid segment with the discrete, poorly defined lesion, which has been previously evaluated by intravascular ultrasound and thought to be either calcific segment or healed dissection . The angiographic findings are not significantly changed compared to the previous angiogram. The major diagonal branch is a medium-sized vessel with no significant focal stenosis. LEFT CIRCUMFLEX ARTERY: The left circumflex artery is a medium caliber codominant vessel, gives rise to small
== END 2020-07-02 14:22 | disposition home or self-care (01) ==
PROVIDERS: PCP Family Medicine; Visit Provider Internal Medicine Cardiovascular Disease
PROC: 4A023N7 Measurement of Cardiac Sampling and Pressure, Left Heart, Percutaneous Approach (ICD-10-PCS; CPT 93452; principal; 2020-07-02 10:00)
DX: I25.118 Atherosclerotic heart disease of native coronary artery with other forms of angina pectoris (principal); R07.9 Chest pain, unspecified; I25.2 Old myocardial infarction; Z95.5 Presence of coronary angioplasty implant and graft; E11.9 Type 2 diabetes mellitus without complications; E03.9 Hypothyroidism, unspecified; I11.9 Hypertensive heart disease without heart failure; I25.9 Chronic ischemic heart disease, unspecified; K21.9 Gastro-esophageal reflux disease without esophagitis; E78.2 Mixed hyperlipidemia; G47.30 Sleep apnea, unspecified; Z98.84 Bariatric surgery status; Z79.82 Long term (current) use of aspirin; Z79.02 Long term (current) use of antithrombotics/antiplatelets
CPT/HCPCS: 36415; 80053; 85025; 85610; 93458; C1760; C1887; C1894; G0269; J1644; J2250; J3010; J7040

== ENCOUNTER 2020-07-20 08:56 | Outpatient (CLI) | payer OTHER, SELFPAY ==
[2020-07-20 09:20] LABS: Hemoglobin A1C 8.9 % (<5.7)
[2020-07-20 09:24] LABS: Alanine Aminotransferase 43 U/L (4-50); Albumin Level 4.1 g/dL (3.5-5.1); Alkaline Phosphatase 90 U/L (38-126); Anion Gap 5 mmol/L (8-16); Aspartate Amino Transferase 36 U/L (17-59); Bilirubin,Total 0.4 mg/dL (0.2-1.3); Blood Urea Nitrogen 19 mg/dL (9-20); Calcium 9.4 mg/dL (8.4-10.2); Carbon Dioxide 25 mmol/L (22-30); Chloride 104 mmol/L (98-107); Estimated Glomerular Filt Rate > 60; Glucose 198 mg/dL (75-110); Potassium 4.5 mmol/L (3.4-5.0); Sodium 134 mmol/L (137-145)
== END 2020-07-20 08:57 | disposition home or self-care (01) ==
LOC: ANHLAB 08:58
PROVIDERS: PCP Family Medicine; Visit Provider Family Medicine
DX: E11.9 Type 2 diabetes mellitus without complications (principal)
CPT/HCPCS: 36415; 80053; 83036

== ENCOUNTER 2020-11-30 09:09 | Outpatient (CLI) | payer OTHER, SELFPAY ==
[2020-11-30 09:57] LABS: Alanine Aminotransferase 53 U/L (4-50); Alkaline Phosphatase 79 U/L (38-126); Anion Gap 5 mmol/L (8-16); Aspartate Amino Transferase 41 U/L (17-59); Bilirubin,Total 0.5 mg/dL (0.2-1.3); Blood Urea Nitrogen 18 mg/dL (9-20); Carbon Dioxide 27 mmol/L (22-30); Chloride 106 mmol/L (98-107); Cholesterol 117 mg/dL (0-200); Estimated Glomerular Filt Rate > 60; Glucose 143 mg/dL (75-110); HDL Direct 37 mg/dL; Hemoglobin A1C 7.1 % (<5.7); Potassium 4.2 mmol/L (3.4-5.0); Sodium 138 mmol/L (137-145); Triglycerides 75 mg/dL (<150)
[2020-11-30 10:08] LABS: LDL Cholesterol Direct 63 mg/dL
== END 2020-11-30 09:10 | disposition home or self-care (01) ==
PROVIDERS: PCP Family Medicine; Visit Provider Family Medicine
DX: E11.9 Type 2 diabetes mellitus without complications (principal)
CPT/HCPCS: 36415; 80053; 80061; 83036

== ENCOUNTER 2021-04-19 09:15 | Outpatient (CLI) | payer OTHER, SELFPAY ==
[2021-04-19 09:41] LABS: Hemoglobin A1C 8.6 % (<5.7)
[2021-04-19 09:52] LABS: MALB Creatinine Ratio 33.1 mg/g (0-30); Microalbumin Urine Random 38.7 mg/L (0-16.7)
[2021-04-19 09:53] LABS: Alanine Aminotransferase 40 U/L (4-50); Albumin Level 4.2 g/dL (3.5-5.1); Alkaline Phosphatase 74 U/L (38-126); Anion Gap 9 mmol/L (8-16); Aspartate Amino Transferase 38 U/L (17-59); Bilirubin,Total 0.6 mg/dL (0.2-1.3); Blood Urea Nitrogen 15 mg/dL (9-20); Calcium 9.6 mg/dL (8.4-10.2); Carbon Dioxide 23 mmol/L (22-30); Chloride 106 mmol/L (98-107); Estimated Glomerular Filt Rate > 60; Glucose 154 mg/dL (75-110); Potassium 4.6 mmol/L (3.4-5.0); Sodium 138 mmol/L (137-145)
== END 2021-04-19 09:16 | disposition home or self-care (01) ==
PROVIDERS: PCP Family Medicine; Visit Provider Family Medicine
DX: E11.9 Type 2 diabetes mellitus without complications (principal)
CPT/HCPCS: 36415; 80053; 82043; 83036

== ENCOUNTER 2021-08-08 02:56 | Day surgery (SDC) | payer OTHER, SELFPAY ==
[2021-08-01 15:43] VITALS: BMI 35.4
--- NOTE | 2021-08-07 13:52 | PM.HPGS ---
History of Present Illness History of Present Illness Consent: Risks, benefits, and alternatives have been discussed and questions answered. Patient agrees to proceed with procedure. Chief complaint: GERD, hx of colon polyps, neoplasm screening Narrative: Alexandre Owens is a 66 year old male with symptoms of gastroesophageal reflux. he was diagnosed with gastritis when he had an EGD several years ago. Lately he has had a great deal of stomach upset including heartburn despite taking pantoprazole 40 mg daily. He had more gastrointestinal symptoms when he went on Ozempic and still having it on Trulicity. He also is here for colon cancer screening, having had previous polyps removed. Review of Systems Review of Systems: All systems reviewed & are unremarkable except as noted in HPI and below PMFSH Past Medical History Medical History Atherosclerotic heart disease of [place] coronary artery with other forms of angina pectoris Chronic ischemic heart disease, unspecified Essential (primary) hypertension Gastritis/duodenitis Gastroesophageal reflux disease with esophagitis GERD with apnea Hand eczema Hypothyroidism (acquired) Low back pain Mixed hyperlipidemia Myocardial infarction (~2011) Obesity (BMI 30.0-34.9) Obstructive sleep apnea Tinea manuum Tinnitus, unspecified ear Unspecified hearing loss Unspecified sleep apnea Surgical History Surgical History History of arthroscopy of knee (~2008) History of arthroscopy of knee (~1990) Bilaterally History of cardiac catheterization (~2016) History of cardiac catheterization (~2012) History of cardiac catheterization (~2010) History of heart artery stent Stent to the RCA in 2011 and then another stent was placed decided that in 2013. History of vasectomy (~1997) Hx of cholecystectomy (~07/02/09) Hx of gastric bypass Family History Family History Mother Family history of obesity Hypertension Family history of cardiovascular disease Family history of dementia Family history of rheumatoid arthritis, Onset Age: 81 Family history of pancreatic cancer, Onset Age: 81 Father Depression, Onset Age: 71 Family history of cardiovascular disease, Onset Age: 71 Diabetes mellitus, Onset Age: 71 Family history of coronary artery disease, Onset Age: 71 Sibling Depression Sibling Acute myocardial infarction at the age of 37 either from MRI RN aneurysm. No autopsy was performed at that time. 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 No alcohol illicit drugs or marijuana. He is and lives with his who works for [employer] they live here in [place]. They have 3 children in their live and well. Patient desires to be a full code. Smoking status: Never smoker Second hand tobacco smoke exposure: No Alcohol intake: current Substance use: never Substance use type: does not use Living arrangements: with family Gender identity (if verbalized by the patient): Male Spiritual care concerns: No Agree to blood products: Yes Meds Home Medications and Allergies Home Medications Medication Instructions Recorded Confirmed Type aspirin 81 mg tablet,delayed 81 mg PO DAILY 10/26/19 08/08/21 History release atorvastatin 40 mg tablet 40 mg PO DAILY 10/26/19 08/08/21 History clopidogrel 75 mg tablet 75 mg PO DAILY 10/26/19 08/08/21 History metformin [Glucophage XR] 500 mg PO DAILY 02/14/20 08/08/21 History metoprolol succinate 50 mg PO DAILY #30 tablet 02/15/20 08/08/21 Rx clobetasol 0.05 % topical cream 1 applic TOPICAL BID PRN #45 g 10/09/20 08/08/21 Rx tadalafil 20 mg tablet 20 mg PO DAILY PRN #10 tablet 0
[2021-08-08 10:29] VITALS: BP 158/89; PULSE 83; RESP 17; TEMP 36.8; O2SAT 97; BMI 35.8
[2021-08-08] MEDS: LACTATED RINGERS 1,000 ML 150 ML IV CONT (10:33)
[2021-08-08 10:36] LABS: Glucose Point of Care 116 mg/dl (65-105)
--- NOTE | 2021-08-08 11:02 | WPDANESEPPF ---
Anes - Initial Pre Proc Eval Procedure: Operation Date: 08/08/21 11:15 Proposed Procedures p Esophagogastroduodenoscopy & Screening Colonoscopy - Siddharth Wong MD Date/Time: 08/08/21 11:02 Surgeon: Siddharth Wong MD Pre Op Diagnosis: GERD, hx of colon polyps, neoplasm screening Patient Data Age: 66 Gender: M Height: 1.75 m Weight: 110 kg Last Vital Signs Temp 98.2 F 08/08/21 10:29 Pulse 83 08/08/21 10:29 Resp 17 08/08/21 10:29 BP 158/89 H 08/08/21 10:29 Pulse Ox 97 08/08/21 10:29 Allergies Allergy/AdvReac Type Severity Reaction Status Date / Time semaglutide [From Ozempic] AdvReac Intermediate nausea, Verified 08/08/21 10:27 achey Home Medications Medication Instructions Recorded Confirmed Type aspirin 81 mg tablet,delayed 81 mg PO DAILY 10/26/19 08/08/21 History release atorvastatin 40 mg tablet 40 mg PO DAILY 10/26/19 08/08/21 History clopidogrel 75 mg tablet 75 mg PO DAILY 10/26/19 08/08/21 History metformin [Glucophage XR] 500 mg PO DAILY 02/14/20 08/08/21 History metoprolol succinate 50 mg PO DAILY #30 tablet 02/15/20 08/08/21 Rx clobetasol 0.05 % topical cream 1 applic TOPICAL BID PRN #45 g 10/09/20 08/08/21 Rx tadalafil 20 mg tablet 20 mg PO DAILY PRN #10 tablet 12/04/20 08/08/21 Rx sucralfate 1 gram tablet 1 g PO QID #120 tablet 02/28/21 08/08/21 Rx dulaglutide 1.5 mg/0.5 mL 1.5 mg SUBCUT WEEKLY #7 ml 07/11/21 08/08/21 Rx subcutaneous pen injector levothyroxine 88 mcg PO DAILY 08/01/21 08/08/21 History lisinopril 40 mg PO DAILY 08/01/21 08/08/21 History pantoprazole 40 mg PO DAILY 08/01/21 08/08/21 History Laboratory Tests 08/08/21 10:34 POC Capillary Glucose 116 mg/dl H mg/dl (65-105) Patient hx anesthesia problems: none Family hx anesthesia problems: none Results Review: All pre-operative results and documents have been reviewed as part of the pre-operative evaluation. [facility] Past Medical History Medical History Atherosclerotic heart disease of [place] coronary artery with other forms of angina pectoris Chronic ischemic heart disease, unspecified Essential (primary) hypertension Gastritis/duodenitis Gastroesophageal reflux disease with esophagitis GERD with apnea Hand eczema Hypothyroidism (acquired) Low back pain Mixed hyperlipidemia Myocardial infarction (~2011) Obesity (BMI 30.0-34.9) Obstructive sleep apnea Tinea manuum Tinnitus, unspecified ear Unspecified hearing loss Unspecified sleep apnea Surgical History Surgical History History of arthroscopy of knee (~2008) History of arthroscopy of knee (~1990) Bilaterally History of cardiac catheterization (~2016) History of cardiac catheterization (~2012) History of cardiac catheterization (~2010) History of heart artery stent Stent to the RCA in 2011 and then another stent was placed decided that in 2013. History of vasectomy (~1997) Hx of cholecystectomy (~07/02/09) Hx of gastric bypass Family History Family History Mother Family history of obesity Hypertension Family history of cardiovascular disease Family history of dementia Family history of rheumatoid arthritis, Onset Age: 81 Family history of pancreatic cancer, Onset Age: 81 Father Depression, Onset Age: 71 Family history of cardiovascular disease, Onset Age: 71 Diabetes mellitus, Onset Age: 71 Family history of coronary artery disease, Onset Age: 71 Sibling Depression Sibling Acute myocardial infarction at the age of 37 either from MRI RN aneurysm. No autopsy was performed at that time. 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 No alcohol illicit drugs or marijuana.
[2021-08-08] MEDS: BENZOCAINE (*SP) 60 ML SPRAY CAN (HURRICAINE) 1 SPRAY MUCOUS MEM (11:36)
[2021-08-08 11:54] VITALS: BP 106/69; PULSE 68; RESP 15; O2SAT 97
[2021-08-08 12:04] VITALS: BP 115/72; PULSE 69; RESP 17; O2SAT 96
[2021-08-08 12:14] VITALS: BP 125/81; PULSE 68; RESP 20; O2SAT 96
== END 2021-08-08 12:29 | disposition home or self-care (01) ==
PROVIDERS: PCP Family Medicine; Visit Provider Internal Medicine Gastroenterology
PROC: 0DJ08ZZ Inspection of Upper Intestinal Tract, Via Natural or Artificial Opening Endoscopic (ICD-10-PCS; CPT 43235; principal; 2021-08-08 11:15)
DX: Z12.11 Encounter for screening for malignant neoplasm of colon (principal); K57.30 Diverticulosis of large intestine without perforation or abscess without bleeding; K63.5 Polyp of colon; R10.13 Epigastric pain; K29.70 Gastritis, unspecified, without bleeding; Z79.82 Long term (current) use of aspirin; Z79.84 Long term (current) use of oral hypoglycemic drugs; E03.9 Hypothyroidism, unspecified; I10 Essential (primary) hypertension; K21.00 Gastro-esophageal reflux disease with esophagitis, without bleeding; L30.9 Dermatitis, unspecified; I25.2 Old myocardial infarction; E78.2 Mixed hyperlipidemia; G47.33 Obstructive sleep apnea (adult) (pediatric); B35.2 Tinea manuum; H93.19 Tinnitus, unspecified ear; G47.30 Sleep apnea, unspecified; E66.9 Obesity, unspecified; Z68.35 Body mass index [BMI] 35.0-35.9, adult
CPT/HCPCS: 43239; 82948; 87081; 88305; J2370; J2704; J7120

== ENCOUNTER 2022-06-20 10:22 | Outpatient (CLI) | payer OTHER, SELFPAY ==
[2022-06-20 11:05] LABS: Alanine Aminotransferase 42 U/L (6-50); Albumin Level 4.4 g/dL (3.5-5.1); Alkaline Phosphatase 82 U/L (38-126); Anion Gap 15 mmol/L (8-16); Aspartate Amino Transferase 35 U/L (17-59); Bilirubin,Total 0.6 mg/dL (0.2-1.3); Blood Urea Nitrogen 19 mg/dL (9-20); Calcium 8.9 mg/dL (8.4-10.2); Carbon Dioxide 27 mmol/L (22-30); Chloride 98 mmol/L (98-107); Cholesterol 99 mg/dL (0-200); Estimated Glomerular Filt Rate > 60; Glucose 141 mg/dL (65-110); HDL Direct 27 mg/dL; Potassium 4.4 mmol/L (3.4-5.0); Sodium 140 mmol/L (137-145); Triglycerides 127 mg/dL (<150)
[2022-06-20 11:16] LABS: LDL Cholesterol Direct 43 mg/dL
[2022-06-20 12:41] LABS: Creatinine Urine 241.8 mg/dL
[2022-06-20 12:46] LABS: MALB Creatinine Ratio 8.1 mg/g (0-30); Microalbumin Urine Random 19.5 mg/L (0-16.7)
== END 2022-06-20 10:23 | disposition home or self-care (01) ==
PROVIDERS: PCP Family Medicine; Visit Provider Family Medicine
DX: E03.9 Hypothyroidism, unspecified (principal); E11.9 Type 2 diabetes mellitus without complications
CPT/HCPCS: 36415; 80053; 80061; 82043; 83036; 84443

== ENCOUNTER 2022-10-24 06:45 | Emergency (ER) | payer OTHER, SELFPAY ==
--- NOTE | ~2022-10-24 | XR_ITS ---
EXAMINATION: XR chest 2V 10/24/2022 07:43 INDICATION: Chest pain PROCEDURE: 2 view chest COMPARISON: 02/14/2020 FINDINGS: The lungs are clear. The cardiomediastinal silhouette is within normal limits. There are no pleural effusions. There is no pneumothorax suspected. IMPRESSION: 1: NO ACUTE CARDIOPULMONARY DISEASE. Reviewed, dictated and finalized at location A. T AND TABLE EDGER
--- NOTE | 2022-10-24 06:46 | ECG_ITS ---
Measurements Intervals [place] Rate: 79 P: 30 GA: 223 QRS: 78 QRSD: 84 T: 33 QT: 358 QTc: 412 Interpretive Statements SINUS RHYTHM WITH FIRST DEGREE AV BLOCK LOW QRS VOLTAGE IN PRECORDIAL LEADS BORDERLINE R WAVE PROGRESSION, ANTERIOR LEADS BASELINE ARTIFACT- V3 BORDERLINE ECG COMPARED TO ECG 02/14/2020 16:45:47 FIRST DEGREE AV BLOCK NOW PRESENT Electronically Signed On 10-24-2022 9:51:42 LOADER by Fito Louie D.O.
[2022-10-24 06:52] VITALS: BP 140/93; PULSE 79; RESP 16; TEMP 36.4; O2SAT 100
[2022-10-24] MEDS: ASPIRIN 81 MG CHEWABLE TABLET 324 MG PO (06:59)
[2022-10-24 07:02] LABS: Basophils Absolute Auto 0.1 K/mm3 (0.0-0.1); Basophils Percent Auto 0.7 % (0.2-1.2); Eosinophils Absolute Auto 0.2 K/mm3 (0-0.3); Eosinophils Percent Auto 2.2 % (0-4.4); Hematocrit 53.8 % (42.0-52.0); Hemoglobin 16.8 g/dL (14.0-18.0); Immature Granulocyte Absolute 0.04 K/mm3 (0.00-0.031); Immature Granulocyte Percent A 0.5 % (0-0.5); Lymphocytes Percent Auto 29.7 % (18.3-44.2); Mean Corpuscular HGB Conc 31.2 g/dl (32-36); Mean Corpuscular Hemoglobin 27.5 pg (26-34); Mean Corpuscular Volume 88.2 fl (80-100); Mean Platelet Volume 9.6 fl (7.4-10.4); Monocytes Absolute Auto 0.8 K/mm3 (0.1-0.6); Monocytes Percent Auto 10.9 % (2.6-8.5); Neutrophils Absolute Auto 4.1 K/mm3 (1.3-6.7); Platelet Count Result 147 k/mm3 (150-375); Red Cell Distribution Width 15.4 % (11.5-14.5); White Blood Count 7.4 K/mm3 (4.5-10.0)
[2022-10-24 07:13] LABS: Alanine Aminotransferase 33 U/L (6-50); Albumin Level 4.3 g/dL (3.5-5.1); Alkaline Phosphatase 80 U/L (38-126); Anion Gap 9 mmol/L (8-16); Aspartate Amino Transferase 26 U/L (17-59); Bilirubin,Total 0.6 mg/dL (0.2-1.3); Blood Urea Nitrogen 20 mg/dL (9-20); Calcium 8.7 mg/dL (8.4-10.2); Carbon Dioxide 23 mmol/L (22-30); Chloride 106 mmol/L (98-107); Estimated CRCL calculation 79 ml/min; Estimated Glomerular Filt Rate > 60; Glucose 154 mg/dL (65-110); Lipase 218 U/L (23-300); Potassium 4.3 mmol/L (3.4-5.0); Sodium 138 mmol/L (137-145)
[2022-10-24 07:25] LABS: Troponin I < 0.012 ng/mL (0.000-0.034)
[2022-10-24 07:33] LABS: Prothrombin Time 12.7 Seconds (11.1-14.7)
[2022-10-24 07:34] LABS: Partial Thromboplastin Time 27.7 SECONDS (22.3-36.8)
[2022-10-24] MEDS: NITROGLYCERIN SL 0.4 MG TABLET SUBLINGUAL (07:44)
[2022-10-24 07:54] VITALS: BP 116/80; PULSE 79; RESP 12; O2SAT 97
--- NOTE | 2022-10-24 08:34 | ED.CHESTPAIN ---
HPI - Chest Pain General Chief Complaint: Chest Pain Stated Complaint: chest pain Time Seen by Provider: 10/24/22 07:04 Source: patient, RN notes reviewed and old records reviewed Mode of arrival: ambulatory Limitations: no limitations History of Present Illness HPI narrative: This is a 67 year old male who presents for evaluation of chest pain. Patient states yesterday afternoon he developed midsternal chest pain after lifting heavy case of soda. He states this pain has been constant and nonradiating. He also reports associated shortness of breath. He reports his chest pain has spread out slightly today but it is no worse than yesterday. HE denies associated nausea, vomiting, dizziness or diaphoresis. She denies worsening pain with exertion. He rates his chest pain 5/10 currently. His second crusher is . He has history of coronary stent and his last cardiac catheterization was over 2 years ago. Related Data Home Medications Medication Instructions Recorded Confirmed aspirin 81 mg tablet,delayed 81 mg PO DAILY 10/26/19 09/24/21 release atorvastatin 40 mg tablet 40 mg PO DAILY 10/26/19 09/24/21 clopidogrel 75 mg tablet 75 mg PO DAILY 10/26/19 09/24/21 lisinopril 40 mg tablet 40 mg PO DAILY 08/01/21 09/24/21 Allergies Allergy/AdvReac Type Severity Reaction Status Date / Time semaglutide [From Ozempic] AdvReac Intermediate Nausea and Verified 10/24/22 07:14 Vomiting Review of Systems Constitutional: Constitutional: Denies weakness Cardiovascular: Cardiovascular: Reports chest pain, Denies syncope, Denies rapid heart rate, Denies irregular heart rhythm, Denies leg edema and Reports dyspnea Respiratory: Respiratory: Denies chest congestion, Denies hemoptysis, Denies excessive phlegm production and Reports dyspnea Gastrointestinal: Gastrointestinal: Denies abdominal pain, Denies hematochezia, Denies diarrhea and Denies vomiting Genitourinary: Genitourinary: Denies hematuria, Denies dysuria, Denies penile discharge and Denies testicular pain Musculoskeletal: Musculoskeletal: Denies joint swelling, Denies loss of height and Denies muscle weakness Neurologic: Denies syncope, Denies focal weakness and Denies weakness PMFSH Past Medical History Medical History Atherosclerotic heart disease of [place] coronary artery with other forms of angina pectoris Chronic ischemic heart disease, unspecified Essential (primary) hypertension Gastritis/duodenitis Gastroesophageal reflux disease with esophagitis GERD with apnea Hand eczema Hypothyroidism (acquired) Low back pain Mixed hyperlipidemia Myocardial infarction (~2011) Obesity (BMI 30.0-34.9) Obstructive sleep apnea Tinea manuum Tinnitus, unspecified ear Unspecified hearing loss Unspecified sleep apnea Surgical History Surgical History History of arthroscopy of knee (~2008) History of arthroscopy of knee (~1990) Bilaterally History of cardiac catheterization (~2016) History of cardiac catheterization (~2012) History of cardiac catheterization (~2010) History of heart artery stent Stent to the RCA in 2011 and then another stent was placed decided that in 2013. History of vasectomy (~1997) Hx of cholecystectomy (~07/02/09) Hx of gastric bypass Family History Family History Mother Family history of obesity Hypertension Family history of cardiovascular disease Family history of dementia Family history of rheumatoid arthritis, Onset Age: 81 Family history of pancreatic cancer, Onset Age: 81 Father Depression, Onset Age: 71 Family history of cardiovascular disease, Onset Age: 71 Diabetes mellitus, Onset Age: 71 Family history of coronary artery disease, Onset Age: 71 Sibling Depression Sibling Acute myocardial infarction at the age of 37 eithe
[2022-10-24 08:59] VITALS: BP 123/76; PULSE 64; RESP 12; O2SAT 97
[2022-10-24 10:26] LABS: Troponin I < 0.012 ng/mL (0.000-0.034)
[2022-10-24 10:54] VITALS: BP 117/77; PULSE 69; RESP 12; O2SAT 97
[2022-10-24 11:42] VITALS: BP 135/90; PULSE 78; RESP 20; O2SAT 97
== END 2022-10-24 11:43 | disposition home or self-care (01) ==
PROVIDERS: Emergency Provider General Practice; PCP Family Medicine
DX: R07.2 Precordial pain (principal); I25.118 Atherosclerotic heart disease of native coronary artery with other forms of angina pectoris; I10 Essential (primary) hypertension; I25.9 Chronic ischemic heart disease, unspecified; E03.9 Hypothyroidism, unspecified; E78.2 Mixed hyperlipidemia; I25.2 Old myocardial infarction; K21.9 Gastro-esophageal reflux disease without esophagitis; G47.33 Obstructive sleep apnea (adult) (pediatric); E66.9 Obesity, unspecified; Z68.35 Body mass index [BMI] 35.0-35.9, adult; Z95.5 Presence of coronary angioplasty implant and graft; Z98.84 Bariatric surgery status; Z79.82 Long term (current) use of aspirin; I44.0 Atrioventricular block, first degree; R94.31 Abnormal electrocardiogram [ECG] [EKG]
CPT/HCPCS: 36415; 71046; 80053; 83690; 84484; 85025; 85610; 85730; 93005; 99284; A9270

== ENCOUNTER 2022-10-31 09:52 | Outpatient (CLI) | payer OTHER, SELFPAY ==
[2022-10-31 11:27] LABS: Alanine Aminotransferase 53 U/L (6-50); Albumin Level 4.5 g/dL (3.5-5.1); Alkaline Phosphatase 93 U/L (38-126); Anion Gap 10 mmol/L (8-16); Aspartate Amino Transferase 47 U/L (17-59); Bilirubin,Total 0.6 mg/dL (0.2-1.3); Blood Urea Nitrogen 22 mg/dL (9-20); Carbon Dioxide 22 mmol/L (22-30); Chloride 106 mmol/L (98-107); Estimated Glomerular Filt Rate 51; Glucose 160 mg/dL (65-110); Potassium 4.7 mmol/L (3.4-5.0); Sodium 138 mmol/L (137-145)
[2022-10-31 12:05] LABS: Hemoglobin A1C 7.6 % (<5.7)
== END 2022-10-31 09:53 | disposition home or self-care (01) ==
LOC: ANHLAB 09:53
PROVIDERS: PCP Family Medicine; Visit Provider Family Medicine
DX: E11.9 Type 2 diabetes mellitus without complications (principal)
CPT/HCPCS: 36415; 80053; 83036

== ENCOUNTER → 2022-11-06 15:37 | Outpatient (CLI) | payer OTHER, SELFPAY ==
--- NOTE | ~2022-11-06 | MR_ITS ---
EXAMINATION: MR cervical spine wo con DATE: 11/06/2022 16:23 INDICATION: Left shoulder and arm pain. Left hand numbness. Left arm weakness. TECHNIQUE: Magnetic resonance imaging (MRI) of the cervical spine was performed without intravenous c ontrast. Sequences included sagittal T2-weighted FSE, sagittal T2-weighted FS FSE, sagittal T1-weight ed FSE, axial MERGE, and axial T2-weighted FSE. COMPARISON: Cervical spine radiographs 11/06/2022 FINDINGS: There is 7 degrees levocurvature of cervical spine. Vertebral body heights are normal. Ther e is mildly decreased disc height at C4-C5, moderately decreased disc height at C5-C6, and mildly dec reased disc height at C6-C7. The spinal cord signal intensity is normal. The following disc levels ar e specifically discussed: C2-C3: The disc does not extend beyond the endplate margin. There is no uncovertebral joint osteoarth ritis. There is mild bilateral facet joint osteoarthritis. There is no neural foraminal stenosis. The re is no central canal stenosis. C3-C4: There is a central extrusion. There is mild left uncovertebral joint osteoarthritis. There is mild left facet joint osteoarthritis. There is mild left neural foraminal stenosis. There is mild christina tral canal stenosis. C4-C5: The disc is bulging with superimposed central extrusion. There is mild bilateral uncovertebral joint osteoarthritis. There is mild right facet joint osteoarthritis. There is mild bilateral neural foraminal stenosis. There is moderate central canal stenosis with ventral and dorsal indentation of the spinal cord. C5-C6: The disc is bulging. There is severe bilateral uncovertebral joint osteoarthritis. There is mi ld right facet joint osteoarthritis. There is mild bilateral neural foraminal stenosis. There is mode rate central canal stenosis with potential and dorsal indentation of the spinal cord. C6-C7: The disc is bulging with superimposed right central extrusion. There is moderate right and sev ere left uncovertebral joint osteoarthritis. There is no facet joint osteoarthritis. There is mild la teral neural foraminal stenosis. There is mild central canal stenosis. C7-T1: The disc does not extend beyond the endplate margin. There is mild bilateral uncovertebral dung nt osteoarthritis. There is mild bilateral facet joint osteoarthritis. There is mild bilateral neural foraminal stenosis. There is no central canal stenosis. IMPRESSION: 1. Moderate cervical spondylosis. Reviewed, dictated and finalized at location A. STICAL INSTALLER
--- NOTE | ~2022-11-06 | XR_ITS ---
XR cervical spine 4-5V DATE: 11/06/2022 15:47 INDICATION: Neck and left arm pain since May 2022. No injury. TECHNIQUE: AP, open-mouth, lateral, swimmer views COMPARISON: None FINDINGS: C1 and C2 are normally aligned and the odontoid process is intact. No fracture or dislocation or locked facet or prevertebral soft tissue swelling. There is anterior spurring at C3-4. Mild loss of height at C4-5. Moderate loss of height and anterior posterior spurring at C5-6 and C6-7. Uncovertebral joint spurring is noted at C5-6 and C6-7. IMPRESSION: Moderate cervical spondylosis Reviewed, dictated and finalized at location B. NEERING INSPECTION ASSISTANT
== END ==
PROVIDERS: PCP Family Medicine; Visit Provider Family Medicine
DX: M47.22 Other spondylosis with radiculopathy, cervical region (principal)
CPT/HCPCS: 72050; 72141

== ENCOUNTER 2023-02-12 13:38 | Outpatient (CLI) | payer OTHER, SELFPAY ==
--- NOTE | 2023-02-12 | ECHO_ITS ---
Patient Info Name: Alexandre Owens Age: 67 years : 1955 Gender: Male Ht: 69 in Wt: 238 lbs BSA: 2.33 m2 HR: 84 bpm BP: 111 / 84 mmHg Heart Rhythm: Sinus Rhythm Technical Quality: Fair Exam Date: 02/12/2023 2:02 PM Exam Location: [facility] Patient Status: Outpatient Admit Date: 02/12/2023 Staff Ordering Physician: Jimy Booker MD Poultry Pathologist: Allison Bingham RDCS Attending Provider: Jimy Booker MD Referring Physician: Ade MEANS; Exam Type: CA echo doppler color flow Study Info Indications I10 - Essential (primary) hypertension I25.118 - Atherosclerotic heart disease of [place] coronary artery with other forms of angina pectoris Complete two-dimensional, color flow and Doppler transthoracic echocardiogram is performed. Summary 1. Complete two-dimensional, color flow and Doppler transthoracic echocardiogram is performed. 2. Left ventricular chamber dimension is normal. 3. Left ventricular systolic function is normal, estimated at 65-70%. 4. The left ventricular diastolic function is grade I diastolic dysfunction. 5. Right ventricular systolic function is normal. 6. There is trace mitral valve regurgitation. 7. There is trace tricuspid valve regurgitation. 8. The aortic root size at the sinus of Valsalva is mildly dilated. Left Ventricle Left ventricular chamber dimension is normal. Left ventricular systolic function is normal, estimated at 65-70%. There is no increased left ventricular wall thickness. The left ventricular diastolic function is grade I diastolic dysfunction. Global longitudinal strain is abnormal at -16 %. Right Ventricle Right ventricular chamber dimension is normal. Right ventricular systolic function is normal. Left Atria Left atrial chamber dimension is normal. Right Atria Right atrial chamber dimension is normal. Aortic Valve The aortic valve is not well visualized. There is no aortic valve stenosis. There is no aortic valve regurgitation. Pulmonic Valve The pulmonic valve is not well visualized. Mitral Valve There is trace mitral valve regurgitation. Tricuspid Valve There is trace tricuspid valve regurgitation. Pericardium/Pleural The pericardium appears epicardial fat pad. There is no pericardial effusion. Inferior Vena Cava Inferior vena cava is not well visualized. Aorta The aortic root size at the sinus of Valsalva is mildly dilated. Left Ventricular Outflow Tract Name Value Normal LVOT 2D LVOT Diameter 2.3 cm LVOT Doppler LVOT Peak Gradient 4 mmHg LVOT Mean Gradient 2 mmHg LVOT VTI 16 cm LVOT VTI/AV VTI Ratio 0.9 LVOT Stroke Volume 65 ml LVOT CO 5.0 l/min LVOT CI 2.1 l/min/m2 Pulmonic Valve Name Value Normal RVOT Doppler RVOT Peak Gradient
== END 2023-02-12 13:39 | disposition home or self-care (01) ==
LOC: ANHCARD 13:40
PROVIDERS: PCP Family Medicine; Visit Provider Internal Medicine Cardiovascular Disease
DX: I25.118 Atherosclerotic heart disease of native coronary artery with other forms of angina pectoris (principal); I10 Essential (primary) hypertension
CPT/HCPCS: 93306

== ENCOUNTER 2023-04-19 08:00 | Outpatient (RCR) | payer OTHER, SELFPAY ==
[2023-02-09 14:23] VITALS: BP_SYST 95
--- NOTE | 2023-02-09 16:56 | PTOPEVAL1 ---
Assessment and note entered by Ryder Garcia, PT, DPT Evaluation Information Assessment Status Evaluation Diagnosis cervical radiculopathy Onset 6 months Subjective Information Pt reports neck pain with radicular symptoms down into his shoulder. He has intermittent symptoms in his little finger and the lateral side of his hand. He states reaching forward will cause symptoms but not when he pulls things towards him. He reports no perceived loss of strength. He states he can tell when he is going to feel the pain, he will pick something up, feel an odd sensation for 2-3 seconds and then will get a sharp and shooting pain. He is seeing neuro and pain management, he received an injection and this helped a little. 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 Reported Pain Level Pain Score 3: Self Report Assessment PT Clinical Summary Rizwan presents to therapy today for his initial evaluation with a diagnosis of cervical spondylosis with radiculopathy. He reports pain mainly in his anterior shoulder. Today he demonstrates active and passive cervical ROM that is WNL and does not increase his pain. He demonstrates decreased active and passive L shoulder motion in all directions that is limited by pain. His L shoulder is grossly 3+/5 in strength compared to his R shoulder which is grossly 5/5. Skilled physical therapy services are indicated to address the deficits noted above, to manage pain, to improve ROM, to improve functional mobility, and to return to baseline function. Plan of Care Interventions Electrical Stimulation,Hot Pack/Cold Pack,Manual Therapy,Neuro Re-education,Patient/Caregiver Educati,Therapeutic Activities,Therapeutic Exercise PT Services Indicated Yes Treatment Frequency and 2x/wk for 5 wks Duration These treatments will address the objective and functional deficits as defined above. The patient will be advanced safely and appropriately in order for the patient to progress towards his/her prior level of function. Additional exercises will be introduced and as well as a comprehensive home exercise program upon discharge, if needed, ?to ensure carryover of functional gains achieved in the clinic. This treatment plan has been reviewed and agreement upon by the patient.
--- NOTE | 2023-03-01 12:33 | PCPTNOTE ---
Pt cancelled his afternoon appt. today due to be unable toleave work on time.
--- NOTE | 2023-03-08 13:27 | PCPTNOTE ---
Pt cancelled due to sickness today.
--- NOTE | 2023-03-10 15:48 | PCPTNOTE ---
Pt cancelled due to illness.
[2023-03-17 15:28] VITALS: BP_SYST 110
--- NOTE | 2023-03-17 16:42 | PTOPPROG ---
Assessment and note entered by Ryder Garcia, PT, DPT Evaluation Information Assessment Status Progress Diagnosis L shoulder pain Onset 6 months Subjective Information Pt states his shoulder is progressing, he states he still has pain but not like he did prior. He states his pain is still really positional, previously he would get a surge of pain after, and now he does not. He states his motion has really improved. He reports 80% improvement in overall symptoms. He reports pain at the worst as a 8/10 but this is really brief. Assessment PT Clinical Summary Rizwan presents to therapy today for his progress report following 8 visits of skilled therapy to treat his L shoulder pain. Today he demonstrates improved active L shoulder motion in all directions but this is still lacking compared to his R shoulder. He demonstrates improved strength with decreased reports of pain. He is progressing well towards his goals and reports good compliance with his HEP. His HEP was progressed today and he plans to continue with his HEP and to follow up in 1 month if needed. Plan of Care Interventions Electrical Stimulation,Hot Pack/Cold Pack,Manual Therapy,Neuro Re-education,Patient/Caregiver Educati,Therapeutic Activities,Therapeutic Exercise PT Services Indicated Yes Treatment Frequency and 0-1x/wk for 4 wks Duration These treatments will address the objective and functional deficits as defined above. The patient will be advanced safely and appropriately in order for the patient to progress towards his/her prior level of function. Additional exercises will be introduced and as well as a comprehensive home exercise program upon discharge, if needed, ?to ensure carryover of functional gains achieved in the clinic. This treatment plan has been reviewed and agreement upon by the patient.
[2023-04-19 07:59] VITALS: BP_SYST 110
--- NOTE | 2023-04-19 08:41 | PTOPDC ---
Assessment and note entered by Ryder Garcia, PT, DPT Evaluation Information Assessment Status Discharge Diagnosis L shoulder pain Onset 6 months Subjective Information Pt states things were going good, up until about a week ago without a known reason. He states he has pain in his neck and into his shoulder again. He reports good compliance with his HEP. Reported Pain Level Pain Score 4,4: Self Report Assessment PT Clinical Summary Rizwan presents to therapy today for his progress report following 9 visits of skilled therapy and a month long participation in his HEP to treat his L shoulder pain. Today he demonstrates no improvements in his active shoulder ROM compared to his last visit, his range is still limited by pain. He demonstrates minor strength improvements but is still decreased from his uninvolved side. D /t his poor therapy progression, he would like to follow up with ortho to discuss a further POC. He will be discharged at this time. Plan of Care PT Services Indicated No
== END 2023-04-19 10:06 | disposition home or self-care (01) ==
LOC: ANHGOSHPT 08:00
PROVIDERS: PCP Family Medicine; Visit Provider Neurological Surgery
DX: M47.812 Spondylosis without myelopathy or radiculopathy, cervical region (principal); M54.2 Cervicalgia
CPT/HCPCS: 97110; 97112; 97140; 97161

== ENCOUNTER 2023-05-01 08:11 | Outpatient (CLI) | payer OTHER, SELFPAY ==
[2023-05-01 10:15] LABS: Alanine Aminotransferase 41 U/L (6-50); Albumin Level 4.2 g/dL (3.5-5.1); Alkaline Phosphatase 94 U/L (38-126); Anion Gap 9 mmol/L (8-16); Aspartate Amino Transferase 30 U/L (17-59); Bilirubin,Total 0.5 mg/dL (0.2-1.3); Blood Urea Nitrogen 21 mg/dL (9-20); Calcium 8.9 mg/dL (8.4-10.2); Carbon Dioxide 24 mmol/L (22-30); Chloride 104 mmol/L (98-107); Cholesterol 110 mg/dL (0-200); Estimated Glomerular Filt Rate > 60; Glucose 235 mg/dL (65-110); HDL Direct 27 mg/dL; Potassium 4.6 mmol/L (3.4-5.0); Sodium 137 mmol/L (137-145); Triglycerides 238 mg/dL (<150)
[2023-05-01 10:22] LABS: Hemoglobin A1C 7.6 % (<5.7)
[2023-05-01 10:26] LABS: LDL Cholesterol Direct 49 mg/dL
[2023-05-01 10:51] LABS: Creatinine Urine 64.6 mg/dL
[2023-05-01 10:57] LABS: MALB Creatinine Ratio 9.9 mg/g (0-30); Microalbumin Urine Random 6.4 mg/L (0-16.7)
== END 2023-05-01 08:12 | disposition home or self-care (01) ==
PROVIDERS: PCP Family Medicine; Visit Provider Family Medicine
DX: E11.9 Type 2 diabetes mellitus without complications (principal)
CPT/HCPCS: 36415; 80053; 80061; 82043; 83036

== ENCOUNTER 2023-06-03 14:45 | Outpatient (CLI) | payer OTHER, SELFPAY ==
--- NOTE | ~2023-06-03 | XR_ITS ---
EXAM: XR shoulder LT min 2V DATE: 06/03/2023 15:01 HISTORY: M25.512 - Pain in left shoulder THAT RADIATES TO 5TH DIGIT . COMPARISON: None available. FINDINGS: Normal mineralization. No fracture or dislocation. No lytic or blastic lesion. Mild AC dung nt hypertrophy. Minimal acromial tip enthesopathy. No erosion or periosteal change. Soft tissues with in normal limits. IMPRESSION: Mild AC joint osteoarthritis. Reviewed, dictated and finalized at location K.
== END 2023-06-03 14:46 | disposition home or self-care (01) ==
LOC: ANHIMG 14:48
PROVIDERS: PCP Family Medicine; Visit Provider Orthopaedic Surgery
DX: M19.012 Primary osteoarthritis, left shoulder (principal)
CPT/HCPCS: 73030

== ENCOUNTER 2023-07-10 08:28 | Outpatient (CLI) | payer OTHER, SELFPAY ==
--- NOTE | ~2023-07-10 | MR_ITS ---
EXAMINATION: MR shoulder LT wo con DATE: 07/10/2023 09:20 INDICATION: M25.512 - Pain in left shoulder . TECHNIQUE: Magnetic resonance imaging (MRI) of the right shoulder was performed without intravenous c ontrast. Sequences included axial PD-weighted FS FSE, coronal oblique PD-weighted FS FSE and T2-weigh stephy FS FSE, and sagittal oblique T2-weighted FS FSE and T1-weighted FSE. COMPARISON: X-ray left shoulder 06/03/2023 FINDINGS: Coracoacromial arch: Mild anterolateral downsloping of the type II acromion. No subacromial or subcoracoid narrowing. Mini mal acromial tip enthesopathy. Rotator cuff: Bursal sided fraying of the superior cuff. 12 mm rim rent type tear of the supraspinatus at its inser tion. Mild thickening and abnormal signal in the distal infraspinatus tendon. Small focus of longitud inally oriented linear abnormal signal in the musculotendinous junction of the infraspinatus. Mild th ickening and abnormal signal in the distal subscapularis tendon. Teres minor intact. Biceps tendon and glenoid labrum: Mild intermediate signal in the long head of biceps tendon without focal tear. Small focal tears in t he anterior inferior and posterior inferior quadrants of the glenoid labrum. Fluid: Minimal subacromial subdeltoid fluid. No significant glenohumeral joint fluid collection. Bones/cartilage: Mild AC joint hypertrophy. Mild narrowing and diffuse cartilage loss of the glenohumeral joint. IMPRESSION: Rim rent type tear of the supraspinatus. Small intrasubstance type tear of the infraspinatus. Infrasp inatus and subscapularis tendinopathy. Bursal fraying of the superior cuff. Small focal tears in the anteroinferior and posterior inferior quadrants of the glenoid labrum. Mild long head of biceps tendinopathy. Mild AC joint and glenohumeral joint osteoarthritis. Reviewed, dictated and finalized at location K. IMPRESSION: Rim rent type tear of the supraspinatus. Small intrasubstance type tear of the infraspinatus. Infraspinatus and subscapularis tendinopathy. Bursal fraying of the superior cuff. Small focal tears in the anteroinferior and posterior inferior quadrants of the glenoid labrum. Mild long head of biceps tendinopathy. Mild AC joint and glenohumeral joint osteoarthritis.
== END 2023-07-10 08:29 | disposition home or self-care (01) ==
PROVIDERS: PCP Family Medicine; Visit Provider Nurse Practitioner
DX: M19.012 Primary osteoarthritis, left shoulder (principal)
CPT/HCPCS: 73221

== ENCOUNTER 2023-09-04 10:16 | Outpatient (CLI) | payer OTHER, SELFPAY ==
[2023-09-04 10:57] LABS: Alanine Aminotransferase 46 U/L (6-50); Albumin Level 4.3 g/dL (3.5-5.1); Alkaline Phosphatase 81 U/L (38-126); Anion Gap 12 mmol/L (8-16); Aspartate Amino Transferase 38 U/L (17-59); Blood Urea Nitrogen 18 mg/dL (9-20); Calcium 9.4 mg/dL (8.4-10.2); Carbon Dioxide 23 mmol/L (22-30); Chloride 105 mmol/L (98-107); Estimated Glomerular Filt Rate > 60; Glucose 84 mg/dL (65-110); Potassium 4.1 mmol/L (3.4-5.0); Sodium 140 mmol/L (137-145)
== END 2023-09-04 10:17 | disposition home or self-care (01) ==
LOC: ANHLAB 10:17
PROVIDERS: PCP Family Medicine; Visit Provider Family Medicine
DX: E11.9 Type 2 diabetes mellitus without complications (principal)
CPT/HCPCS: 36415; 80053; 83036

== ENCOUNTER 2023-09-14 15:30 | Outpatient (RCR) | payer OTHER, SELFPAY | END 2023-11-18 23:59 | disposition home or self-care (01) | LOC: ANHDMC 15:30 | PROVIDERS: PCP Family Medicine; Visit Provider Orthopaedic Surgery | DX: E11.65 Type 2 diabetes mellitus with hyperglycemia (principal); Z71.89 Other specified counseling | CPT/HCPCS: G0108 ==

== ENCOUNTER 2024-02-08 06:51 | Observation (INO) | payer OTHER, MEDICARE, SELFPAY ==
[2024-02-08] VITALS (14 sets, daily range): BP systolic 112–136; BP diastolic 64–83; PULSE 48–61; RESP 12–16; TEMP 36.2–36.6; O2SAT 94–98; BMI 31.0
--- NOTE | ~2024-02-08 | NM_ITS ---
EXAMINATION: NM regi stress w perfusion DATE: 02/09/2024 11:22 CDT INDICATION: Chest pain TECHNIQUE: Rest images were obtained following intravenous administration of 9.9 mCi Tc99m tetrofosmi n (Myoview). The patient was infused intravenously with Lexiscan (regadenoson). Then, 35 mCi Tc99m te trofosmin (Myoview) was administered intravenously, and stress images were obtained. Data was reconst ructed into short axis and horizontal and vertical long axis SPECT images. Gated SPECT images were al so obtained. COMPARISON: None. FINDINGS: There is no definite reversible or fixed perfusion abnormality to suggest ischemia or infar ction. There is no segmental wall motion abnormality. Left ventricular ejection fraction measures 6 9%. IMPRESSION: 1. No definite ischemia or infarct. 2. Normal left ventricular ejection fraction measuring 69%. Reviewed, dictated and finalized at location B.
--- NOTE | ~2024-02-08 | XR_ITS ---
EXAMINATION: XR chest 2V DATE: 02/08/2024 07:35 INDICATION: Midsternal chest pain. TECHNIQUE: Frontal and lateral views of the chest were obtained. COMPARISON: None. FINDINGS: A calcified left lung nodule and calcified left hilar lymph nodes are consistent with old g ranulomatous disease. There is no pneumonia, pleural effusion, or pneumothorax. The heart size is nor mal. Surgical clips in the right upper quadrant are likely from cholecystectomy. IMPRESSION: 1. No acute cardiopulmonary disease. Reviewed, dictated and finalized at location E.
--- NOTE | 2024-02-08 06:52 | ECG_ITS ---
SEE SCANNED COPY FOR CONFIRMED REPORT MTDD
[2024-02-08 07:21] LABS: Basophils Absolute Auto 0.1 K/mm3 (0.0-0.1); Basophils Percent Auto 0.8 % (0.2-1.2); Eosinophils Absolute Auto 0.1 K/mm3 (0-0.3); Eosinophils Percent Auto 1.7 % (0-4.4); Hematocrit 57.9 % (42.0-52.0); Hemoglobin 18.2 g/dL (14.0-18.0); Immature Granulocyte Absolute 0.03 K/mm3 (0.00-0.031); Immature Granulocyte Percent A 0.4 % (0-0.5); Immature Platelet Fraction Pct 3.8 % (0.9-11.2); Lymphocytes Absolute Auto 2.36 K/mm3 (0.9-3.2); Lymphocytes Percent Auto 31.4 % (18.3-44.2); Mean Corpuscular HGB Conc 31.4 g/dl (32-36); Mean Corpuscular Hemoglobin 27.8 pg (26-34); Mean Corpuscular Volume 88.5 fl (80-100); Mean Platelet Volume 10.2 fl (7.4-10.4); Monocytes Absolute Auto 0.5 K/mm3 (0.1-0.6); Monocytes Percent Auto 6.5 % (2.6-8.5); Neutrophils Absolute Auto 4.5 K/mm3 (1.3-6.7); Neutrophils Percent Auto 59.2 % (45.5-73.1); Platelet Count Result 132 k/mm3 (150-375); Red Blood Count 6.54 M/mm3 (4.6-6.20); Red Cell Distribution Width 15.3 % (11.5-14.5); White Blood Count 7.5 K/mm3 (4.5-10.0)
[2024-02-08 08:11] LABS: Alanine Aminotransferase 27 U/L (6-50); Albumin Level 4.3 g/dL (3.5-5.1); Alkaline Phosphatase 67 U/L (38-126); Anion Gap 7 mmol/L (4-12); Aspartate Amino Transferase 26 U/L (17-59); Bilirubin,Total 0.7 mg/dL (0.2-1.3); Blood Urea Nitrogen 19 mg/dL (9-20); Calcium 9.4 mg/dL (8.4-10.2); Carbon Dioxide 22 mmol/L (22-30); Chloride 109 mmol/L (98-107); Estimated CRCL calculation 80 ml/min; Estimated Glomerular Filt Rate > 60; Glucose 118 mg/dL (65-110); Lipase 178 U/L (23-300); Sodium 138 mmol/L (137-145)
[2024-02-08 08:21] LABS: Partial Thromboplastin Time 29.4 Seconds (22.3-36.8); Prothrombin Time 13.1 Seconds (11.1-14.7); Troponin I < 0.012 ng/mL (0.000-0.034)
--- NOTE | 2024-02-08 09:07 | ED.CHESTPAIN ---
HPI - Chest Pain General Chief Complaint: Chest Pain Stated Complaint: chest pain Time Seen by Provider: 02/08/24 07:01 History of Present Illness HPI narrative: This is a 68-year-old male, with history of coronary artery disease, diabetes and hypertension, status post catheterization in 2012 in 2013, presents emergency department complaining of chest pain for the past week. The patient describes the pain as pressure-like and burning, substernal in, initially on the right, now spreading to the left and associated with left arm numbness and jaw numbness. The patient states this pain feels very similar to that which he felt prior to his catheterization. He denies any obvious aggravating alleviating factors though does complain of some nausea. He has no other complaints at this time. Related Data Home Medications Medication Instructions Recorded Confirmed aspirin 81 mg tablet,delayed 81 mg PO DAILY 10/26/19 09/06/23 release atorvastatin 40 mg tablet 40 mg PO DAILY 10/26/19 09/06/23 clopidogrel 75 mg tablet 75 mg PO DAILY 10/26/19 09/06/23 lisinopril 40 mg tablet 40 mg PO DAILY 08/01/21 09/06/23 Allergies Allergy/AdvReac Type Severity Reaction Status Date / Time semaglutide [From Ozempic] AdvReac Intermediate Nausea and Verified 02/08/24 06:51 Vomiting Review of Systems Review of Systems: CONSTITUTIONAL: Denies fever, chills, or sweats. CARDIOVASCULAR: Chest pain Denies, palpitations, or edema. RESPIRATORY: Denies cough or dyspnea. GASTROINTESTINAL: Denies abdominal pain, vomiting, or diarrhea. GENITOURINARY: Denies dysuria or hematuria. SKIN: Denies rash or itching. MUSCULOSKELETAL: Denies back pain, joint pain, or myalgia. NEUROLOGIC: Denies headache, numbness, dizziness, or weakness. PSYCHIATRIC: Denies anxiety or depression. [facility] Past Medical History Medical History Adhesive capsulitis of left shoulder Atherosclerotic heart disease of [place] coronary artery with other forms of angina pectoris Chronic ischemic heart disease, unspecified Essential (primary) hypertension Gastritis/duodenitis Gastroesophageal reflux disease with esophagitis GERD with apnea Hand eczema Hypothyroidism (acquired) Low back pain Mixed hyperlipidemia Myocardial infarction (~2011) Obesity (BMI 30.0-34.9) Obstructive sleep apnea Tinea manuum Tinnitus, unspecified ear Unspecified hearing loss Unspecified sleep apnea Surgical History Surgical History History of arthroscopy of knee (~2008) History of arthroscopy of knee (~1990) Bilaterally History of cardiac catheterization (~2016) History of cardiac catheterization (~2012) History of cardiac catheterization (~2010) History of heart artery stent Stent to the RCA in 2011 and then another stent was placed decided that in 2013. History of vasectomy (~1997) Hx of cholecystectomy (~07/02/09) Hx of gastric bypass Family History Family History Mother Family history of obesity Hypertension Family history of cardiovascular disease Family history of dementia Family history of rheumatoid arthritis, Onset Age: 81 Family history of pancreatic cancer, Onset Age: 81 Diabetes mellitus Father Depression, Onset Age: 71 Family history of cardiovascular disease, Onset Age: 71 Diabetes mellitus, Onset Age: 71 Family history of coronary artery disease, Onset Age: 71 Hypertension Sibling Depression Diabetes mellitus Sibling Acute myocardial infarction at the age of 37 either from MRI RN aneurysm. No autopsy was performed at that time. 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 No alcohol illicit drugs or marijuana. He is marrie
--- NOTE | 2024-02-08 09:43 | PC.NURSE ---
refused Morphine due to not having pain at this time
--- NOTE | 2024-02-08 10:48 | PM.IMHP ---
H&P: HPI History of Present Illness Date/Time: 02/08/24 10:48 Chief Complaint: chest pain Narrative: 68 years old gentleman with history of CAD status post stent, hypertension hyperlipidemia, diabetes, present ED with a chief complaint of chest pain. Patient has been having intermittent chest pain and possible week, located in left chest, pressure-like chest pain, radiated to left shoulder and left arm. Patient had a similar pain with he had a heart attack. Patient patient has epigastric abdomen pain, and acid reflux denies nausea vomiting diarrhea dysuria. patient also denies fever, chills. Patient came to ED for evaluation, in the ED, patient was afebrile, blood pressure stable, pulse ox 96 on room air. Labs showed hemoglobin 18.2, chemistry unremarkable. Troponin negative, EKG shows sinus rhythm no specific ST T-wave changes,, chest x-ray shows no acute cardiopulmonary issues. ER physician consulted the pre k teacher. We admit patient for further evaluation and treatment . [facility] Past Medical History Medical History Adhesive capsulitis of left shoulder Atherosclerotic heart disease of [place] coronary artery with other forms of angina pectoris Chronic ischemic heart disease, unspecified Essential (primary) hypertension Gastritis/duodenitis Gastroesophageal reflux disease with esophagitis GERD with apnea Hand eczema Hypothyroidism (acquired) Low back pain Mixed hyperlipidemia Myocardial infarction (~2011) Obesity (BMI 30.0-34.9) Obstructive sleep apnea Tinea manuum Tinnitus, unspecified ear Unspecified hearing loss Unspecified sleep apnea Surgical History Surgical History History of arthroscopy of knee (~2008) History of arthroscopy of knee (~1990) Bilaterally History of cardiac catheterization (~2016) History of cardiac catheterization (~2012) History of cardiac catheterization (~2010) History of heart artery stent Stent to the RCA in 2011 and then another stent was placed decided that in 2013. History of vasectomy (~1997) Hx of cholecystectomy (~07/02/09) Hx of gastric bypass Family History Family History Mother Family history of obesity Hypertension Family history of cardiovascular disease Family history of dementia Family history of rheumatoid arthritis, Onset Age: 81 Family history of pancreatic cancer, Onset Age: 81 Diabetes mellitus Father Depression, Onset Age: 71 Family history of cardiovascular disease, Onset Age: 71 Diabetes mellitus, Onset Age: 71 Family history of coronary artery disease, Onset Age: 71 Hypertension Sibling Depression Diabetes mellitus Sibling Acute myocardial infarction at the age of 37 either from MRI RN aneurysm. No autopsy was performed at that time. 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 No alcohol illicit drugs or marijuana. He is and lives with his who works for [employer] they live here in [place]. They have 3 children in their live and well. Patient desires to be a full code. Smoking status: Never smoker Second hand tobacco smoke exposure: No Alcohol intake: never Substance use: never Substance use type: does not use Do You Feel Safe in your Home?: Yes Lack of Transportation: No Lack of Food: Never True Current Housing: I Have Housing Concerned About Future Housing: No Difficulty Paying Gas/Electric Bills: No Difficulty Paying for Meds: No Currently Unemployed: No Education: Associate Degree Difficulty w/ Childcare or Family Care: No Living arrangements: with family Occupation/Education: occupation Additional occupation/education comments: [employer]
--- NOTE | 2024-02-08 11:11 | ADMGEN ---
This patient, Alexandre Owens, was admitted to IMU Room 205-01. Patient/family oriented to hospital policies and general routines including ID bracelet, bed and alarms, visiting hours, pain management, procedures, bathroom and other care routines, personal items, smoking policy, room service/diet, and visiting hours. Information on how to activate the Rapid Response Team has been discussed. Patient/Family are encouraged to report perceived risks to care and to ask questions if they do not understand what they are told or what they should do.
[2024-02-08 11:19] LABS: Troponin I < 0.012 ng/mL (0.000-0.034)
[2024-02-08 11:55] LABS: Cholesterol 117 mg/dL (0-200); HDL Direct 36 mg/dL; Triglycerides 118 mg/dL (<150)
[2024-02-08 12:04] LABS: Glucose Point of Care 98 mg/dl (65-105)
[2024-02-08 12:05] LABS: LDL Cholesterol Direct 71 mg/dL
--- NOTE | 2024-02-08 12:44 | PM.CNCAR ---
Assessment and Plan Assessment and plan (1) Chest pain: Qualifiers: Chest pain type: chest pain due to myocardial ischemia Ischemic chest pain type: unstable angina pectoris Qualified Code(s): I20.0 - Unstable angina Code(s): R07.9 - Chest pain, unspecified Status: Acute Assessment and Plan: Somewhat atypical chest pain. Located in the epigastric region and diffuse across his chest. Had some left arm pain and jaw pain once but that has not recurred. Chest pain gets worse after eating certain foods. At the time of my evaluation, he had just finished eating his lunch and reports that brought on chest pain. Chest pain does not worsen with exertion. ER evaluation showed EKGs with sinus bradycardia without ischemic changes. Unfortunately, cannot compare the images to his last EKG as the EKG system is down and the images are not available for viewing. Troponins thus far are negative x 2. He does have epigastric tenderness upon examination. Given the somewhat atypical features, EKG without ischemic changes, and negative troponins, will plan for nuclear stress test to be done 02/08. Patient to be NPO at midnight. Will give him a GI cocktail now and see if this improves his symptoms. (2) Atherosclerotic heart disease of [place] coronary artery with other forms of angina pectoris: Code(s): I25.118 - Atherosclerotic heart disease of [place] coronary artery with other forms of angina pectoris Status: Acute Assessment and Plan: Continue ASA, Plavix, statin. (3) Mixed hyperlipidemia: Code(s): E78.2 - Mixed hyperlipidemia Status: Chronic Assessment and Plan: Continue statin. (4) Gastroesophageal reflux disease with esophagitis: Code(s): K21.0 - Gastro-esophageal reflux disease with esophagitis Status: Acute Assessment and Plan: Continue PPI. Will give him a GI cocktail now and see if this improves his symptoms. (5) Diabetes mellitus type 2, uncontrolled: Code(s): E11.65 - Type 2 diabetes mellitus with hyperglycemia Status: Acute Assessment and Plan: Management as per primary team. (6) Essential (primary) hypertension: Code(s): I10 - Essential (primary) hypertension Status: Chronic Assessment and Plan: Continue home antihypertensive regimen. History of Present Illness History of Present Illness Consult date/time: 02/08/24 12:44 Requesting physician: Loc Muhammad MD Consult reason: chest pain Reason For Visit: chest pain Narrative: We are consulted for chest pain. This is a 68 year old male patient of Dr. Booker'joselyn with coronary artery disease s/p prior PCI, hyperlipidemia, hypertension, GERD, CARL who presented to [place] with chest pain. Chest pain has been occurring for the past week and feels constant. Located in the epigastric region and diffuse across his chest. Had some left arm pain and jaw pain once but that has not recurred. Chest pain gets worse after eating certain foods. At the time of my evaluation, he had just finished eating his lunch and reports that brought on chest pain. Does not worsen with exertion. ER evaluation showed EKGs with sinus bradycardia without ischemic changes. Unfortunately, cannot compare the images to his last EKG as the EKG system is down and the images are not available for viewing. Troponins thus far are negative x 2. His last cardiac catheterization from 2019 was personally reviewed, shows: 1.? CAD- a) ?Patent previously placed proximal RCA stents with minimal? luminal loss; b)? Discrete, non flow-limiting poorly defined lesion in the mid?LAD ( unchanged from previous angiogram, evaluated by IVUS on 07/22/2017) 2. Preserved LV systolic function, LVEF? 65-70%.? LVEDP 14 mmHg. Review of Systems Review of Systems: All systems reviewed & are unremarkable except as noted in HPI and below (HPI) [facility] Past Medical History Medical History (Reviewed 02/08/24 @ 12:51 by Sandhya Swenson
[2024-02-08] MEDS: BELLADONNA ALK/PHENOB ELIX 10 ML, MAG HYDROX/ALUMINUM HYD/SIMETH 30 ML, LIDOCAINE HCL 2... PO (12:51)
--- NOTE | 2024-02-08 14:27 | ECG_ITS ---
SEE SCANNED COPY FOR CONFIRMED REPORT MTDD
[2024-02-08 14:33] LABS: Troponin I < 0.012 ng/mL (0.000-0.034)
[2024-02-08] MEDS: MAG HYDROX/AL HYDROX/SIMETH 30 ML UDC PO (15:52)
[2024-02-08 16:29] LABS: Glucose Point of Care 128 mg/dl (65-105)
[2024-02-08] MEDS: PANTOPRAZOLE 40 MG TABLET PO (17:07)
[2024-02-08 20:05] LABS: Glucose Point of Care 172 mg/dl (65-105)
[2024-02-09] VITALS (12 sets, daily range): BP systolic 107–133; BP diastolic 62–75; PULSE 52–97; RESP 16–19; TEMP 36.5–36.6; O2SAT 95–100
--- NOTE | 2024-02-09 | EST_ITS ---
Patient Info Name: Alexandre Owens Age: 68 years : 1955 Gender: Male Ht: 69 in Wt: 210 lbs BSA: 2.18 m2 HR: 78 bpm BP: 189 / 110 mmHg Exam Date: 02/09/2024 10:04 AM Exam Location: Echo Lab Patient Status: Outpatient Admit Date: 02/08/2024 Staff Ordering Physician: Sandhya Spencer MD Attending Provider: John Paul Williamson MD Exercise Technologist: Danita Franz CT Exercise Physician: Brady Munoz MD Exam Type: CA stress regi w NM Study Info Indications R07.89 - Other chest pain A regadenoson stress test was performed. Summary 1. No abnormal ST/T wave changes with Lexiscan administration. 2. No arrhythmias were observed during Lexiscan administration. 3. No chest discomfort with stress test. 4. Please correlate with nuclear medicine images, reported separately. Protocol: Lexiscan Stress ECG Details Stage: REST Duration (min): 0 min : 57 sec HR (bpm): 63 SBP (mmHg): 130 DBP (mmHg): 85 Stage: REST Duration (min): 11 min : 35 sec HR (bpm): 57 SBP (mmHg): 130 DBP (mmHg): 85 Stage: STAGE 1 Duration (min): 1 min : 0 sec HR (bpm): 72 SBP (mmHg): 114 DBP (mmHg): 75 Stage: RECOVERY Duration (min): 1 min : 0 sec HR (bpm): 82 SBP (mmHg): 114 DBP (mmHg): 75 Stage: RECOVERY Duration (min): 2 min : 0 sec HR (bpm): 79 SBP (mmHg): 114 DBP (mmHg): 75 Stage: RECOVERY Duration (min): 3 min : 0 sec HR (bpm): 75 SBP (mmHg): 131 DBP (mmHg): 88 Stage: RECOVERY Duration (min): 3 min : 9 sec HR (bpm): 76 SBP (mmHg): 131 DBP (mmHg): 88 Rest HR: 57 bpm Peak HR: 94 bpm Rest Sys BP: 130 mmHg Peak Sys BP: 131 mmHg Max Pred HR: 154 bpm % Max Pred HR: 61 % Target HR: 131 bpm Max RPP: 12,314 bpm*mmHg Termination Reason: Completed protocol Cardiac Symptoms: None Total Time: 1 min : 0 sec Rest Bassett BP: 85 mmHg Peak Bassett BP: 88 mmHg Total Dose: 0.4 mg Resting ECG Sinus rhythm, poor R-wave progression, borderline ECG. Stress ECG No abnormal ST/T wave changes with Lexiscan administration. Arrhythmias No arrhythmias were observed during Lexiscan administration. Report Signatures
[2024-02-09 05:23] LABS: Basophils Percent Auto 0.5 % (0.2-1.2); Eosinophils Absolute Auto 0.1 K/mm3 (0-0.3); Eosinophils Percent Auto 1.5 % (0-4.4); Hematocrit 56.5 % (42.0-52.0); Hemoglobin 17.8 g/dL (14.0-18.0); Immature Granulocyte Absolute 0.03 K/mm3 (0.00-0.031); Immature Granulocyte Percent A 0.4 % (0-0.5); Immature Platelet Fraction Pct 3.8 % (0.9-11.2); Lymphocytes Absolute Auto 2.97 K/mm3 (0.9-3.2); Lymphocytes Percent Auto 36.9 % (18.3-44.2); Mean Corpuscular HGB Conc 31.5 g/dl (32-36); Mean Corpuscular Hemoglobin 27.7 pg (26-34); Mean Platelet Volume 10.4 fl (7.4-10.4); Monocytes Absolute Auto 0.6 K/mm3 (0.1-0.6); Neutrophils Absolute Auto 4.2 K/mm3 (1.3-6.7); Neutrophils Percent Auto 52.7 % (45.5-73.1); Platelet Count Result 135 k/mm3 (150-375); Red Blood Count 6.42 M/mm3 (4.6-6.20); Red Cell Distribution Width 15.8 % (11.5-14.5)
[2024-02-09 05:37] LABS: Anion Gap 6 mmol/L (4-12); Blood Urea Nitrogen 19 mg/dL (9-20); Calcium 9.2 mg/dL (8.4-10.2); Carbon Dioxide 24 mmol/L (22-30); Chloride 105 mmol/L (98-107); Estimated CRCL calculation 72 ml/min; Estimated Glomerular Filt Rate > 60; Glucose 93 mg/dL (65-110); Potassium 4.1 mmol/L (3.4-5.0); Sodium 135 mmol/L (137-145)
[2024-02-09] MEDS: LEVOTHYROXINE SODIUM 88 MCG TABLET PO (06:21)
[2024-02-09 08:18] LABS: Glucose Point of Care 112 mg/dl (65-105)
[2024-02-09] MEDS: CLOPIDOGREL BISULFATE 75 MG TABLET PO (11:07)
[2024-02-09] MEDS: ASPIRIN 81 MG ENTERIC TABLET PO (11:07)
[2024-02-09] MEDS: PANTOPRAZOLE 40 MG TABLET PO (11:07)
[2024-02-09 12:11] LABS: Glucose Point of Care 142 mg/dl (65-105)
--- NOTE | 2024-02-09 14:08 | PM.PNCARD ---
Progress Note: A&P Assessment and Plan (1) Chest pain: Qualifiers: Chest pain type: chest pain due to myocardial ischemia Ischemic chest pain type: unstable angina pectoris Qualified Code(s): I20.0 - Unstable angina Code(s): R07.9 - Chest pain, unspecified Status: Acute Assessment and Plan: Somewhat atypical chest pain. Located in the epigastric region and diffuse across his chest. Had some left arm pain and jaw pain once but that has not recurred. Chest pain gets worse after eating certain foods. At the time of my evaluation, he had just finished eating his lunch and reports that brought on chest pain. Chest pain does not worsen with exertion. ER evaluation showed EKGs with sinus bradycardia without ischemic changes. Unfortunately,? cannot compare the images to his last EKG as the EKG system is down and the images are not available for viewing. Troponins thus far are negative x 2. He does have epigastric tenderness upon examination. Given the somewhat atypical features, EKG without ischemic changes, and negative troponins, will plan for nuclear stress test to be done 02/08. Lexiscan negative for ischemia or infarct. Normal LVEF. No wall motion abnormality. Okay to discharge home from a cardiac standpoint. Will arrange follow up with Dr. Booker. (2) Atherosclerotic heart disease of [place] coronary artery with other forms of angina pectoris: Code(s): I25.118 - Atherosclerotic heart disease of [place] coronary artery with other forms of angina pectoris Status: Acute Assessment and Plan: Continue ASA, Plavix, statin. (3) Mixed hyperlipidemia: Code(s): E78.2 - Mixed hyperlipidemia Status: Chronic Assessment and Plan: Continue statin. (4) Gastroesophageal reflux disease with esophagitis: Code(s): K21.0 - Gastro-esophageal reflux disease with esophagitis Status: Acute Assessment and Plan: Continue PPI. (5) Diabetes mellitus type 2, uncontrolled: Code(s): E11.65 - Type 2 diabetes mellitus with hyperglycemia Status: Acute Assessment and Plan: Management as per primary team. (6) Essential (primary) hypertension: Code(s): I10 - Essential (primary) hypertension Status: Chronic Assessment and Plan: Continue home antihypertensive regimen. Subjective Date/time seen: 02/09/24 14:08 Interval history: Reason for visit: Chest pain HPI: We are consulted for chest pain. This is a 68 year old male patient of Dr. Booker's with coronary artery disease s/p prior PCI, hyperlipidemia, hypertension, GERD, CARL who presented to [place] with chest pain. Chest pain has been occurring for the past week and feels constant. Located in the epigastric region and diffuse across his chest. Had some left arm pain and jaw pain once but that has not recurred. Chest pain gets worse after eating certain foods. At the time of my evaluation, he had just finished eating his lunch and reports that brought on chest pain. Does not worsen with exertion. ER evaluation showed EKGs with sinus bradycardia without ischemic changes. Unfortunately,? cannot compare the images to his last EKG as the EKG system is down and the images are not available for viewing. Troponins thus far are negative x 2. His last cardiac catheterization from 2019 was personally reviewed, shows: 1.? CAD- a) ?Patent previously placed proximal RCA stents with minimal? luminal loss; b)? Discrete, non flow-limiting poorly defined lesion in the mid?LAD ( unchanged from previous angiogram, evaluated by IVUS on 07/22/2017) 2. Preserved LV systolic function, LVEF? 65-70%.? LVEDP 14 mmHg. Date of service 02/08: Doing well, no chest pain. Review of Systems Review of Systems: All systems reviewed & are unremarkable except as noted in HPI and below (HPI) Exam Const: General: comfortable and no acute distress Eyes: General: appearance normal, both eyes and all related structures
--- NOTE | 2024-02-09 14:36 | PM.IMPN ---
Progress Note: A&P Assessment and Plan (1) Unstable angina: Code(s): I20.0 - Unstable angina Status: Acute (2) Mixed hyperlipidemia: Code(s): E78.2 - Mixed hyperlipidemia Status: Chronic (3) Hypothyroidism (acquired): Code(s): E03.9 - Hypothyroidism, unspecified Status: Acute (4) Gastroesophageal reflux disease with esophagitis: Code(s): K21.0 - Gastro-esophageal reflux disease with esophagitis Status: Acute (5) Atherosclerotic heart disease of [place] coronary artery with other forms of angina pectoris: Code(s): I25.118 - Atherosclerotic heart disease of [place] coronary artery with other forms of angina pectoris Status: Acute (6) Diabetes mellitus type 2, uncontrolled: Code(s): E11.65 - Type 2 diabetes mellitus with hyperglycemia Status: Acute Plan unstable angina Patient has been having intermittent chest pain in past 1 week Patient has history of CAD status post stent, patient had chest pain in past few more days, similar the chest pain and had heart attack troponin negative, EKG shows sinus rhythm no significant ST T-wave changes Continue aspirin 81 mg daily p.o., Plavix 75 mg daily p.o., Lipitor 40 mg daily p.o. nitroglycerin sublingual follow-up serial troponin, telemetry monitoring Consult infrastructure solutions architect rest management per infrastructure solutions architect 02/08: negative cardiac stress test per cardiology report, and infrastructure solutions architect request to discharge patient today Essential hypertension continue metoprolol 50 mg daily p.o., lisinopril 40 mg daily p.o., acquired hypothyroidism Continue Synthroid 88 mcg daily p.o. Type 2 diabetes Hold metformin Start insulin sliding scale a.c. q.h.s. GERD pt is on Protonix 40 mg daily p.o., Carafate 1 g q.i.d. p.o. Patient denies dysphagia, still has acid reflux, increase Protonix to 40 mg b.i.d. p.o. Patient follow with GI outpatient Patient may stay more than 2 midnights in hospital Subjective Date/time seen: 02/09/24 14:36 Interval history: I saw exam patient today, patient underwent cardiac stress test, patient felt sweating, and had some shortness of breath and abdomen pain during stress test. but patient denies chest pain. When I saw exam patient, patient denies chest pain, palpitation, shortness breath, abdomen pain, nausea vomiting. Patient afebrile, blood pressure stable Exam Narrative: GENERAL: Pleasant, in no acute distress. Well-nourished. - EYES: EOMI. Anicteric. - HENT: Moist mucous membranes. - LUNGS: Clear to auscultation bilaterally, no wheezing, rhonchi, or rales. - CARDIOVASCULAR: Regular rate and rhythm. No murmur. No JVD. - ABDOMEN: Soft, non-tender and non-distended. No palpable masses. - EXTREMITIES: No edema. Peripheral pulses 2+. Non-tender. - NEUROLOGIC: No focal neurological deficits. CN II-XII grossly intact. - PSYCHIATRIC: Awake, Alert and oriented x 3. Appropriate mood and affect. - SKIN: No rashes or lesions. Warm. - LYMPH: No cervical lymphadenopathy. Objective Data Vital Signs Vital Signs: Vital Signs - 24 hr 02/08/24 16:00 02/08/24 18:00 02/08/24 16:00 Temperature 97.7 F Pulse Rate 52 L 51 L 53 L Respiratory Rate 16 Blood Pressure 118/64 Pulse Oximetry 95 Oxygen Delivery 02/08/24 19:58 02/08/24 20:00 02/08/24 20:00 Temperature 97.2 F L Pulse Rate 51 L 51 L 55 L Respiratory Rate 16 16 Blood Pressure 112/65 Pulse Oximetry 98 98 Oxygen Delivery Room Air 02/08/24 22:00 02/09/24 00:17 02/09/24 00:00 Temperature 97.8 F Pulse Rate 51 L 55 L 54 L Respiratory Rate 16 Blood Pressure 107/65 Pulse Oximetry 100 Oxygen Delivery 02/09/24 00:50 02/09/24 02:00 02/09/24 04:00 Temperature Pulse Rate 55 L 52 L 52 L Respiratory Rate 16 16 Blood Pressure Pulse Oximetry 100 100 Oxygen Delivery Room Air Room Air 02/09/24 04:00 02/09/24 04:41 02/09/24 06:00 Temperature 97.7 F Pulse Rate
--- NOTE | 2024-02-09 14:39 | PM.DS ---
DS: Admitting Diagnosis Discharge Date 02/08 Admitting Diagnosis unstable angina DS: Discharge Diagnosis Discharge Diagnosis (1) Unstable angina: Code(s): I20.0 - Unstable angina Status: Acute (2) Mixed hyperlipidemia: Code(s): E78.2 - Mixed hyperlipidemia Status: Chronic (3) Hypothyroidism (acquired): Code(s): E03.9 - Hypothyroidism, unspecified Status: Acute (4) Gastroesophageal reflux disease with esophagitis: Code(s): K21.0 - Gastro-esophageal reflux disease with esophagitis Status: Acute (5) Atherosclerotic heart disease of [place] coronary artery with other forms of angina pectoris: Code(s): I25.118 - Atherosclerotic heart disease of [place] coronary artery with other forms of angina pectoris Status: Acute (6) Diabetes mellitus type 2, uncontrolled: Code(s): E11.65 - Type 2 diabetes mellitus with hyperglycemia Status: Acute DS: Summary Hospital Course Hospital Course: ? per H&P, 68 years old gentleman with history of CAD status post stent, hypertension hyperlipidemia, diabetes, present ED with a chief complaint of chest pain.? Patient has been having intermittent chest pain and possible week, located in left chest, pressure-like chest pain, radiated to left shoulder and left arm.? Patient had a similar pain? with he had a heart attack.? Patient patient has epigastric abdomen pain, and acid reflux denies nausea vomiting diarrhea dysuria. patient also denies fever, chills.? Patient came to ED for evaluation, in the ED, patient was afebrile, blood pressure stable, pulse ox 96 on room air.? Labs showed hemoglobin 18.2, chemistry unremarkable.? Troponin negative, EKG shows sinus rhythm no specific ST T-wave changes,, chest x-ray shows no acute cardiopulmonary issues.? ER physician consulted the factory supervisor.? We admit patient for further? evaluation and? treatment the following med issues have been addressed during hospitalization unstable angina Patient has been having intermittent chest pain in past 1 week Patient has history of CAD status post stent, patient had chest pain in past few more days, similar the chest pain and had heart attack troponin negative, EKG shows sinus rhythm no significant ST T-wave changes Continue aspirin 81 mg daily p.o., Plavix 75 mg daily p.o., Lipitor 40 mg daily p.o. nitroglycerin sublingual follow-up serial troponin, telemetry monitoring Consult factory supervisor rest management per factory supervisor 02/08: negative cardiac stress test per cardiology report, and factory supervisor request to discharge patient today Essential hypertension continue metoprolol 50 mg daily p.o., lisinopril 40 mg daily p.o., acquired hypothyroidism Continue Synthroid 88 mcg daily p.o. Type 2 diabetes Hold metformin Start insulin sliding scale a.c. q.h.s. GERD pt is on Protonix 40 mg daily p.o., Carafate 1 g q.i.d. p.o. Patient denies dysphagia, still has acid reflux, increase Protonix to 40 mg b.i.d. p.o. Patient follow with GI outpatient Patient may stay more than 2 midnights in hospital Time Spent with Patient Time attestation: Total time spent providing and/or coordinating discharge services: Exam Narrative: GENERAL: Pleasant, in no acute distress. Well-nourished. - EYES: EOMI. Anicteric. - HENT: Moist mucous membranes. - LUNGS: Clear to auscultation bilaterally, no wheezing, rhonchi, or rales. - CARDIOVASCULAR: Regular rate and rhythm. No murmur. No JVD. - ABDOMEN: Soft, non-tender and non-distended. No palpable masses. - EXTREMITIES: No edema. Peripheral pulses 2+. Non-tender. - NEUROLOGIC: No focal neurological deficits. CN II-XII grossly intact. - PSYCHIATRIC: Awake, Alert and oriented x 3. Appropriate mood and affect. - SKIN: No rashes or lesions. Warm. - LYMPH: No cervical lymphadenopathy. DS: Data Data Completed and Pending Labs on day of discharge: Labs from last 24 hours 02/09/24 02/09/24
== END 2024-02-09 15:06 | disposition home or self-care (01) ==
LOC: ANHED 09:12 → ANHIMU 13:39
PROVIDERS: Emergency Medicine; Admitting Provider Hospitalist; Emergency Provider Preventive Medicine Aerospace Medicine; PCP Family Medicine; Visit Provider Hospitalist
DX: I25.110 Atherosclerotic heart disease of native coronary artery with unstable angina pectoris (principal); Z95.5 Presence of coronary angioplasty implant and graft; E11.65 Type 2 diabetes mellitus with hyperglycemia; I10 Essential (primary) hypertension; I25.9 Chronic ischemic heart disease, unspecified; K21.00 Gastro-esophageal reflux disease with esophagitis, without bleeding; E03.9 Hypothyroidism, unspecified; E78.2 Mixed hyperlipidemia; I25.2 Old myocardial infarction; G47.33 Obstructive sleep apnea (adult) (pediatric); E66.9 Obesity, unspecified; Z68.30 Body mass index [BMI] 30.0-30.9, adult; Z98.890 Other specified postprocedural states; Z98.84 Bariatric surgery status; F12.90 Cannabis use, unspecified, uncomplicated; Z79.84 Long term (current) use of oral hypoglycemic drugs; Z79.82 Long term (current) use of aspirin; Z79.85 Long-term (current) use of injectable non-insulin antidiabetic drugs; Z79.02 Long term (current) use of antithrombotics/antiplatelets; Z79.899 Other long term (current) drug therapy
CPT/HCPCS: 36415; 71046; 78452; 80048; 80053; 80061; 82948; 83690; 84484; 85025; 85055; 85610; 85730; 93005; 93017; 99285; A9270; A9502; G0378; J2785

== ENCOUNTER 2024-03-18 09:30 | Outpatient (CLI) | payer OTHER, SELFPAY ==
[2024-03-18 10:39] LABS: Hemoglobin A1C 5.8 % (<5.7)
[2024-03-18 10:46] LABS: Alanine Aminotransferase 29 U/L (6-50); Albumin Level 4.4 g/dL (3.5-5.1); Alkaline Phosphatase 76 U/L (38-126); Anion Gap 7 mmol/L (4-12); Aspartate Amino Transferase 28 U/L (17-59); Blood Urea Nitrogen 15 mg/dL (9-20); Calcium 9.2 mg/dL (8.4-10.2); Carbon Dioxide 22 mmol/L (22-30); Chloride 107 mmol/L (98-107); Cholesterol 118 mg/dL (0-200); Estimated Glomerular Filt Rate > 60; Glucose 113 mg/dL (65-110); HDL Direct 39 mg/dL; Potassium 4.3 mmol/L (3.4-5.0); Sodium 136 mmol/L (137-145); Triglycerides 126 mg/dL (<150)
[2024-03-18 10:56] LABS: LDL Cholesterol Direct 70 mg/dL
== END 2024-03-18 09:31 | disposition home or self-care (01) ==
LOC: ANHLAB 09:32
PROVIDERS: PCP Family Medicine; Visit Provider Family Medicine
DX: E03.9 Hypothyroidism, unspecified (principal); E11.65 Type 2 diabetes mellitus with hyperglycemia; E78.2 Mixed hyperlipidemia
CPT/HCPCS: 36415; 80053; 80061; 83036; 84443

== ENCOUNTER 2024-08-19 08:43 | Outpatient (CLI) | payer OTHER, SELFPAY ==
[2024-08-19 09:30] LABS: Basophils Absolute Auto 0.1 K/mm3 (0.0-0.1); Basophils Percent Auto 0.6 % (0.2-1.2); Eosinophils Absolute Auto 0.2 K/mm3 (0-0.3); Eosinophils Percent Auto 2.2 % (0-4.4); Hematocrit 57.5 % (42.0-52.0); Hemoglobin 18.7 g/dL (14.0-18.0); Immature Granulocyte Absolute 0.05 K/mm3 (0.00-0.031); Immature Granulocyte Percent A 0.6 % (0-0.5); Lymphocytes Absolute Auto 3.26 K/mm3 (0.9-3.2); Lymphocytes Percent Auto 39.2 % (18.3-44.2); Mean Corpuscular HGB Conc 32.5 g/dl (32-36); Mean Corpuscular Hemoglobin 28.5 pg (26-34); Mean Corpuscular Volume 87.5 fl (80-100); Mean Platelet Volume 9.9 fl (7.4-10.4); Monocytes Absolute Auto 0.7 K/mm3 (0.1-0.6); Monocytes Percent Auto 8.4 % (2.6-8.5); Neutrophils Absolute Auto 4.1 K/mm3 (1.3-6.7); Platelet Count Result 145 k/mm3 (150-375); Red Blood Count 6.57 M/mm3 (4.6-6.20); Red Cell Distribution Width 17.1 % (11.5-14.5); White Blood Count 8.3 K/mm3 (4.5-10.0)
[2024-08-19 09:46] LABS: Alanine Aminotransferase 41 U/L (6-50); Albumin Level 4.5 g/dL (3.5-5.1); Alkaline Phosphatase 71 U/L (38-126); Anion Gap 10 mmol/L (4-12); Aspartate Amino Transferase 38 U/L (17-59); Bilirubin,Total 0.7 mg/dL (0.2-1.3); Blood Urea Nitrogen 19 mg/dL (9-20); Calcium 9.4 mg/dL (8.4-10.2); Carbon Dioxide 22 mmol/L (22-30); Chloride 106 mmol/L (98-107); Estimated Glomerular Filt Rate > 60; Glucose 114 mg/dL (65-110); Potassium 4.2 mmol/L (3.4-5.0); Sodium 138 mmol/L (137-145)
[2024-08-19 10:44] LABS: Hemoglobin A1C 6.7 % (<5.7)
== END 2024-08-19 08:44 | disposition home or self-care (01) ==
PROVIDERS: PCP Family Medicine; Visit Provider Family Medicine
DX: E78.5 Hyperlipidemia, unspecified (principal)
CPT/HCPCS: 36415; 80053; 83036; 85025

== ENCOUNTER 2024-12-23 10:06 | Outpatient (CLI) | payer MEDICARE, SELFPAY ==
--- OUTSIDE RECORDS SUMMARY | 2024-12-23 10:12 | XMS_ITS | Clinical Summary ---
Author Organization [facility] [address] Address [address] [place] [address] Care Team Providers Care Rn Pediatric Icu Name Role Phone Alexandre Sharma MD Primary Care Provider [phone] [phone] Allergies No known active allergies Medications pantoprazole DR (PROTONIX) 40 mg EC tablet take 1 tablet by oral route 2 times every day 30 3 013 Active nitroglycerin (NITROSTAT) 0.[address] 1 tablet by sublingual route once at 1st sign of attack; may repeat every 5 minutes up to 3 tabs; if norelief seek medical help 25 1 014 Active sucralfate (CARAFATE) 1 gram tablet Take 1 tablet (1 g total) by mouth daily Active aspirin 81 mg enteric coated tablet Take 1 tablet (81 mg total) by mouth daily Active metFORMIN XR (GLUCOPHAGE XR) 500 mg 24 hr tablet Take 1 tablet (500 mg total) by mouth daily with breakfast 020 Active Euthyrox 88 mcg tablet Take 1 tablet (88 mcg total) by mouth daily 020 Active clobetasoL (TEMOVATE) 0.05 % cream 020 Active tadalafiL (CIALIS) 20 mg tablet TAKE 1 TABLET BY MOUTH ONCE DAILY NEEDED FOR SEXUAL ACTIVITY APPROXIMATELY 30 MINUTES BEFORE SEXUAL ACTIVITY. DO NOT USE MORE THAN ONE DO 021 Active multivitamin capsule Take 1 capsule by mouth daily Active Jardiance 25 mg tablet Take 1 tablet (25 mg total) by mouth daily 023 Active lisinopriL (PRINIVIL,ZESTR [place]) 10 mg tabletIndicatio ns:Essential hypertension Take 1 tablet (10 mg total) by mouth daily 90 tablet 3 024 2024 Active metoprolol XL (TOPROL-XL) 50 mg extended release tablet Take 1 tablet by mouth once daily 90 tablet 2 024 Active clopidogreL (PLAVIX) 75 mg tablet Take 1 tablet by mouth once daily 90 tablet 2 024 Active atorvastatin (LIPITOR) 40 mg tabletIndicatio ns:Hyperlipidem ia associated with type 2 diabetes mellitus (HCC) Take 1 tablet by mouth once daily 90 tablet 025 Active atorvastatin (LIPITOR) 40 mg tabletIndicatio ns:Hyperlipidem ia associated with type 2 diabetes mellitus (HCC) Take 1 tablet by mouth once daily 90 tablet 2 024 2024 Discontinued Active Problems Problem Noted Date Diagnosed Date CARL (obstructive sleep apnea) 09/20/2018 Coronary artery disease of n ative artery of [place] heart with stable angina pectoris 07/20/2017 Essential hypertension 07/20/2017 GERD without esophagitis 07/20/2017 Hyperlipidemia LDL goal <70 07/20/2017 Recurrent chest pain 07/20/2017 Surgical History Surgery Date Site/Laterality Comments LUMBAR DISCECTOMY 2010 Diskectomy, Lumbar OTHER SURGICAL HISTORY GERD/gastritis: OTHER SURGICAL HISTORY B/L knee surgery KNEE ARTHROSCOPY W/ LATERAL RELEASE CATARACT EXTRACTION CHOLECYSTECTOMY VASECTOMY Medical History Medical History Date Comments Hx Other Medical metabolic Syn Cardiovascular disease Coronary Artery Disease Myocardial infarction (HCC) 2011 Myoc ardial infarction Hypertension Hypertension Hx Other Medical Sleep Apnea, CP AP Hx Other Medical GERD/gastritis GERD (gastroesophageal reflux disease) Anxiety Cataract Diabetes mellitus (HCC) Heart disease Sleep apnea Family History Medical History Relation Name Comments Sudden Brother 2 Sudden ; C ause of : Sudden Diabetes Father Samuel Heart attack Father Samuel Myocardial Infa rction; Cause of : Myocardial Infarction Heart disease Father Samuel Coronary artery disease Mother Shanti Armando narkalani Artery Bypass Graft; Heart attack Mother Shanti Heart disease Mother Shanti Hypertension Mother Shanti Other Mother Shanti Pancreatic Canc er; Cause of : Pancreatic Cancer Diabetes Sister Ayse Memory loss Sister Ayse Relation Name Status Comments Brother 1 (Age 37) Brother 2 Father Samuel (Age 71) Mother Shanti Alive Sister Ayse Social History Tobacco Use Types Packs/Day Years Used Date Smoking Tobacco: Never Cigarettes Smokeless Tobacco: Never Tobacco Cessation:Counseling Given: Not Answered Alcohol Use Standard Drinks/Week Comments No 0 (1 standard drink = 0.6 oz pur e alcohol) Sex and Gender Information Value Date Recorded Sex Assigned at Not on file Legal Sex Male 1:54 AM [employer] Gender Identity Not on file Sexual Orientation Not on file Obstetrics History Last Filed Vital Signs Vital Sign Reading Time Taken Comments Blood Pressure 110/68 05/09/2024 8:21 AM CDT Pulse 74 05/09/2024 8:21 AM CDT Temperature - - Respiratory Rate 15 08/16/2020 3:51 PM CDT Oxygen Saturation 97% 05/09/2024 8:21 AM CDT Inhaled Oxygen Concentration - - Weight 98.9 kg (218 lb) 05/09/2024 8:21 AM CDT Height 175.3 cm (5' 9 ) 05/09/2024 8:21 AM CDT Body Mass Index 32.19 05/09/2024 8:21 AM CDT Plan of Treatment Health Maintenance Due Date Last Done Comments Albumin Creatinine Ratio, Urine 1955 Colon Cancer Screening-Colonoscopy 1955 Depression Screening 1955 Hemoglobin A1C 1957 Hepatitis C Screening 1957 Prostate Cancer Screening-PSA 1957 eGFR 1955 Dilated Eye Exam 1957 Foot Exam 1957 DTaP/Tdap/Td Vaccine (1 - Tdap) 1968 Hepatitis B Screening 1975 Pneumococcal vaccine 65+ (1 of 2 - PCV) 1976 Zoster Vaccine (1 of 2) 2007 Fall Risk Assessment 08/16/2021 08/16/2020, 03/20/20 20 Well Visit 65+ 2022 Covid-19 Vaccine (3 - 2023-2 5 season) 2024 11/06/2020, 10/16/2020 Influenza Vaccine (#1) 2024 07/26/2023, 2021 Lipid Panel 02/07/2025 02/08/2024, 07/19, 04/06/2023, Additional history exists Procedures Procedure Name Priority Date/Time Associated Diagnosis Comments LIPID PANEL Routine 02/08/2024 4:07 PM CDT from Last 3 Months or Most Recently Relevant to Health Maintenance Results * Lipid panel (02/08/2024 4:07 PM CDT) SCRIBED Cholesterol, Total 117 <200 EXTERNAL LAB SCRIBED HDL 36 >40 EXTERNAL LAB SCRIBED LDL 71 <100 EXTERNAL LAB SCRIBED Triglycerides 118 <150 EXTERNAL LAB Blood us Historical Provider LAB BLOOD ORDERABLES Edit ed Result - Final EXTERNAL LAB from Last 3 Months or Most Recently Relevant to Health Maintenance Insurance [facility] Care Teams Rn Pediatric Icu Relationship Specialty Start Date End Date Alexandre Sharma MD PCP - General 01/15/17
--- OUTSIDE RECORDS SUMMARY | 2024-12-23 10:12 | XMS_ITS | Clinical Summary ---
Author Organization [facility] Address [facility] [place] [address] Care Team Providers Care Clip Loading Machine Feeder Name Role Phone Unavailable Primary Care Provider Unavailabl e Social History Tobacco Use Types Packs/Day Years Used Date Smoking Tobacco: Never Assessed Sex and Gender Information Value Date Recorded Sex Assigned at Not on file Legal Sex Male 8:11 PM CDT Gender Identity Not on file Sexual Orientation Not on file Plan of Treatment Health Maintenance Due Date Last Done Comments Colorectal Cancer Screening Colonoscopy (10 Years) 1957 Hepatitis C 1975 DTaP, Tdap and Td Vaccines ( 1 - Tdap) 1976 Zoster Vaccines (1 of 2) 2007 Pneumococcal Vaccine: 65+ Ye ars (1 of 1 - PCV) 2022 COVID-19 Vaccine ( - 2023-2 5 season) 2024 Influenza Adult (#1) 2024 RSV Immunization or 60+ Years (1 - 1-dose 75+ series) 2032 Meningococcal B Vaccine Aged Out No l onger eligible based on patient's age to complete this topic Meningococcal Vaccine Aged Out No phoebe horace eligible based on patient's age to complete this topic RSV Immunizations Under 20 Months Aged Out No longer eligible based on patient's age to complete this topic
--- OUTSIDE RECORDS SUMMARY | 2024-12-23 10:12 | XMS_ITS | Referral Summary ---
Author Organization [facility] [address] Address [address] [place] [address] Care Team Providers Care Coding Spec Name Role Phone Alexandre Sharma MD Primary Care Provider [phone] [phone] Allergies No known active allergies Medications pantoprazole [...] artery disease of n ative artery of [place] heart with stable angina pectoris 07/20/2017 Essential hypertension 07/20/2017 GERD without esophagitis 07/20/2017 Hyperlipidemia LDL goal <70 07/20/2017 Recurrent chest pain 07/20/2017 Social History Tobacco Use Types Packs/Day Years Used Date Smoking Tobacco: Never Cigarettes Smokeless Tobacco: Never Tobacco Cessation:Counseling Given: Not Answered Alcohol Use Standard Drinks/Week Comments No 0 (1 standard drink = 0.6 oz pur e alcohol) Sex and Gender Information Value Date Recorded Sex Assigned at Not on file Legal Sex Male 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 HAND Gender Identity Not on file Sexual Orientation Not on file Last Filed Vital Signs Vital Sign Reading [...] 05/09/2024 8:21 AM CDT Plan of Treatment Not on file Procedures Procedure Name Priority Date/Time Associated Diagnosis Comments LIPID PANEL Routine 02/08/2024 4:07 PM CDT from Last 3 Months or Most Recently Relevant to Health Maintenance Results * Lipid panel (02/08/2024 4:07 PM CDT) SCRIBED Cholesterol, Total 117 <200 EXTERNAL LAB SCRIBED HDL 36 >40 EXTERNAL LAB SCRIBED LDL 71 <100 EXTERNAL LAB SCRIBED Triglycerides 118 <150 EXTERNAL LAB Blood Historical Provider LAB BLOOD ORDERABLES Edit ed Result - Final EXTERNAL LAB from Last 3 Months or Most Recently Relevant to Health Maintenance Insurance [facility] Care Teams Coding Spec Relationship Specialty Start Date End Date Alexandre Sharma MD PCP - General 01/15/17
--- OUTSIDE RECORDS SUMMARY | 2024-12-23 10:13 | XMS_ITS | Encounter Summary ---
Author Organization [facility] Address [address] [place] [address] Care Team Providers Care Compliance Advisor Name Role Phone Alexandre Sharma MD Primary Care Provider [phone] [phone] Encounter Details Date Type Department Care Team (Late st Contact Info) Description 02/12/2017 Orders Only [facility] ProviderRichi MD [address] [place] [address] Social History Tobacco Use Types Packs/Day Years Used Date Smoking Tobacco: Never Alcohol Use Standard Drinks/Week Comments No 0 (1 standard drink = 0.6 oz pur e alcohol) Sex and Gender Information Value Date Recorded Sex Assigned at Not on file 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 07/26/2022 07/26/2022 11/23/2022 3:[address] documented as of this encounter Care Teams Compliance Advisor Relationship Specialty Start Date End Date Alexandre Sharma MD PCP - General 01/15/17 documented as of this encounter
--- OUTSIDE RECORDS SUMMARY | 2024-12-23 10:13 | XMS_ITS | Clinical Summary ---
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 Gender Identity Not on file Sexual Orientation Not on file Plan of Treatment Upcoming Encounters Date Type Department Care Team (Late st Contact Info) Description 01/24/2025 1:30 PM CDT Office Visit [facility] Oncology and Hematology - Jose Carlos [address] [facility] [address] [place] [address] Arturo Albert MD [address] [facility] [address] [place] [address] Health Maintenance Due Date Last Done Comments DTAP/TDAP/TD VACCINES (1 - Tdap) 1976 COLORECTAL SCREENING 2002 Colorectal Cancer Screening 2002 FIT-DNA Q 3 years 2002 FIT/FOBT Q 1 year 2002 Flex Sig/CT Colonography Q 5 years 2002 PNEUMOCOCCAL VACCINE 50+ YEARS (1 of 1 - PCV) 06/29/20 07 ZOSTER VACCINE (1 of 2) 2007 INFLUENZA VACCINE (#1) 2024 Preventative Visit- Commercial 10/18/2024 RSV VACCINE (60+ or ) (1 - 1-dose 75+ series) 2032 Insurance [facility] CHOICE [id number] MEDICARE PART A HOSPITAL ONLY
[2024-12-23 10:27] LABS: Basophils Percent Auto 0.6 % (0.2-1.2); Eosinophils Absolute Auto 0.1 K/mm3 (0-0.3); Hematocrit 54.4 % (42.0-52.0); Hemoglobin 17.3 g/dL (14.0-18.0); Immature Granulocyte Absolute 0.03 K/mm3 (0.00-0.031); Immature Granulocyte Percent A 0.5 % (0-0.5); Immature Platelet Fraction Pct 3.1 % (0.9-11.2); Lymphocytes Absolute Auto 2.76 K/mm3 (0.9-3.2); Lymphocytes Percent Auto 43.5 % (18.3-44.2); Mean Corpuscular HGB Conc 31.8 g/dl (32-36); Mean Corpuscular Hemoglobin 27.9 pg (26-34); Mean Corpuscular Volume 87.9 fl (80-100); Mean Platelet Volume 9.4 fl (7.4-10.4); Monocytes Absolute Auto 0.5 K/mm3 (0.1-0.6); Monocytes Percent Auto 7.7 % (2.6-8.5); Neutrophils Absolute Auto 2.9 K/mm3 (1.3-6.7); Neutrophils Percent Auto 45.7 % (45.5-73.1); Platelet Count Result 130 k/mm3 (150-375); Red Blood Count 6.19 M/mm3 (4.6-6.20); Red Cell Distribution Width 15.3 % (11.5-14.5); White Blood Count 6.4 K/mm3 (4.5-10.0)
[2024-12-23 10:39] LABS: Alanine Aminotransferase 44 U/L (6-50); Albumin Level 4.3 g/dL (3.5-5.1); Alkaline Phosphatase 77 U/L (38-126); Anion Gap 11 mmol/L (4-12); Aspartate Amino Transferase 37 U/L (17-59); Bilirubin,Total 0.8 mg/dL (0.2-1.3); Blood Urea Nitrogen 17 mg/dL (9-20); Calcium 9.1 mg/dL (8.4-10.2); Carbon Dioxide 21 mmol/L (22-30); Chloride 107 mmol/L (98-107); Cholesterol 105 mg/dL (0-200); Estimated Glomerular Filt Rate > 60; Glucose 123 mg/dL (65-110); HDL Direct 33 mg/dL; Potassium 4.5 mmol/L (3.4-5.0); Sodium 139 mmol/L (137-145); Triglycerides 170 mg/dL (<150)
[2024-12-23 10:40] LABS: Hemoglobin A1C 6.5 % (<5.7)
[2024-12-23 10:50] LABS: LDL Cholesterol Direct 45 mg/dL
[2024-12-23 10:51] LABS: Creatinine Urine 152.3 mg/dL
[2024-12-23 10:57] LABS: MALB Creatinine Ratio 8.7 mg/g (0-30); Microalbumin Urine Random 13.3 mg/L (0-16.7)
== END 2024-12-23 10:07 | disposition home or self-care (01) ==
LOC: ANHLAB 10:10
PROVIDERS: PCP Family Medicine; Visit Provider Family Medicine
DX: E11.9 Type 2 diabetes mellitus without complications (principal); D75.1 Secondary polycythemia; E03.9 Hypothyroidism, unspecified
CPT/HCPCS: 36415; 80053; 80061; 82043; 83036; 84443; 85025; 85055

== ENCOUNTER 2025-01-24 14:25 | Outpatient (CLI) | payer MEDICARE, SELFPAY ==
[2025-01-24 14:50] LABS: Basophils Percent Auto 0.5 % (0.2-1.2); Eosinophils Absolute Auto 0.2 K/mm3 (0-0.3); Eosinophils Percent Auto 2.1 % (0-4.4); Hematocrit 55.6 % (42.0-52.0); Hemoglobin 17.7 g/dL (14.0-18.0); Immature Granulocyte Absolute 0.02 K/mm3 (0.00-0.031); Immature Granulocyte Percent A 0.2 % (0-0.5); Lymphocytes Absolute Auto 3.26 K/mm3 (0.9-3.2); Lymphocytes Percent Auto 38.2 % (18.3-44.2); Mean Corpuscular HGB Conc 31.8 g/dl (32-36); Mean Corpuscular Hemoglobin 28.2 pg (26-34); Mean Corpuscular Volume 88.5 fl (80-100); Mean Platelet Volume 9.3 fl (7.4-10.4); Monocytes Absolute Auto 0.7 K/mm3 (0.1-0.6); Monocytes Percent Auto 8.1 % (2.6-8.5); Neutrophils Absolute Auto 4.4 K/mm3 (1.3-6.7); Neutrophils Percent Auto 50.9 % (45.5-73.1); Platelet Count Result 167 k/mm3 (150-375); Red Blood Count 6.28 M/mm3 (4.6-6.20); Red Cell Distribution Width 15.4 % (11.5-14.5); White Blood Count 8.5 K/mm3 (4.5-10.0)
--- OUTSIDE RECORDS SUMMARY | 2025-01-24 16:05 | XMS_ITS | Clinical Summary ---
Author Organization [facility] [address] Address [address] [place] [address] Care Team Providers Care Air Carrier Maintenance Inspector Name Role Phone Blaire Sharma MD Primary Care Provider [phone] [phone] Allergies No known active allergies Medications pantoprazole DR (PROTONIX) 40 mg EC tablet take 1 tablet by oral route 2 times every day 30 3 06/23/20 13 Active nitroglycerin (NITROSTAT) 0.[address] 1 tablet by sublingual route once at 1st sign of attack; may repeat every 5 minutes up to 3 tabs; if norelief seek medical help 25 1 07/04/20 14 Active sucralfate (CARAFATE) 1 gram tablet Take 1 tablet (1 g total) by mouth daily Active aspirin 81 mg enteric coated tablet Take 1 tablet (81 mg total) by mouth daily Active metFORMIN XR (GLUCOPHAGE XR) 500 mg 24 hr tablet Take 1 tablet (500 mg total) by mouth daily with breakfast 07/15/20 20 Active Euthyrox 88 mcg tablet Take 1 tablet (88 mcg total) by mouth daily 07/28/20 20 Active clobetasoL (TEMOVATE) 0.05 % cream 08/16/20 20 Active tadalafiL (CIALIS) 20 mg tablet TAKE 1 TABLET BY MOUTH ONCE DAILY NEEDED FOR SEXUAL ACTIVITY APPROXIMATELY 30 MINUTES BEFORE SEXUAL ACTIVITY. DO NOT USE MORE THAN ONE DO 12/04/19 21 Active multivitamin capsule Take 1 capsule by mouth daily Active Jardiance 25 mg tablet Take 1 tablet (25 mg total) by mouth daily 10/20/19 23 Active lisinopriL (PRINIVIL,ZESTRI L) 10 mg tabletIndication s:Essential hypertension Take 1 tablet (10 mg total) by mouth daily 90 tablet 3 03/02/20 24 025 Active clopidogreL (PLAVIX) 75 mg tablet Take 1 tablet by mouth once daily 90 tablet 2 08/28/20 24 Active atorvastatin (LIPITOR) 40 mg tabletIndication s:Hyperlipidemia associated with type 2 diabetes mellitus (HCC) Take 1 tablet by mouth once daily 90 tablet 12/14/19 25 Active metoprolol XL (TOPROL-XL) 50 mg extended release tablet Take 1 tablet by mouth once daily 90 tablet 12/26/19 25 Active Active Problems Problem Noted Date Diagnosed Date CARL (obstructive sleep apnea) 09/20/2018 Coronary artery disease of n ative artery of [place] heart with stable angina pectoris 07/20/2017 Essential hypertension 07/20/2017 GERD without esophagitis 07/20/2017 Hyperlipidemia LDL goal <70 07/20/2017 Recurrent chest pain 07/20/2017 Encounters Date Type Department Care Team Description 01/08/2025 Telephone [facility] Cardiology [address] [place] [address] [address] [place] [address] Alber Ho MD 01/05/2025 Results Follow-Up [facility] Cardiology at [address] [place] [address] Alber Ho MD 01/03/2025 11:15 AM CDT Ancillary Procedure [facility] Cardiology [address] [place] [address] [address] [place] [address] Recurrent chest pain; Coronary artery disease of [place] artery of [place] heart with stable angina pectoris 12/27/2024 8:00 AM CDT Office Visit [facility] Cardiology [address] [place] [address] [address] [place] [address] Alber Ho MD Recurrent chest pain (Primary Dx); Coronary artery disease of [place] artery of [place] heart with stable angina pectoris; Essential hypertension; Hyperlipidemia LDL goal <70; CARL (obstructive sleep apnea) from Last 3 Months Surgical History Surgery Date Site/Laterality Comments LUMBAR DISCECTOMY 2010 Diskectomy, Lumbar OTHER SURGICAL HISTORY GERD/gastritis: OTHER SURGICAL HISTORY B/L knee surgery KNEE ARTHROSCOPY W/ LATERAL RELEASE CATARACT EXTRACTION CHOLECYSTECTOMY VASECTOMY Medical History Medical History Date Comments Hx Other Medical metabolic Syn Cardiovascular disease Coronary Artery Disease Myocardial infarction (HCC) 2012 Myoc ardial infarction Hypertension Hypertension Hx Other [...] Samuel Coronary artery disease Mother Shanti Armando nary Artery Bypass Graft; Heart attack Mother Shanti [...] on file 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 Gender Identity Not on file Sexual Orientation Not on file Obstetrics History Last Filed Vital Signs Vital Sign Reading Time Taken Comments Blood Pressure 126/68 12/27/2024 8:41 AM CDT Pulse 83 12/27/2024 7:57 AM CDT Temperature - - Respiratory Rate 15 08/16/2020 3:51 PM CDT Oxygen Saturation 95% 12/27/2024 7:57 AM CDT Inhaled Oxygen Concentration - - Weight 106.9 kg (235 lb 11.2 oz) 12/27/2024 7:57 AM CDT Height 175.3 cm (5' 9 ) 12/27/2024 7:57 AM CDT Body Mass Index 34.81 12/27/2024 7:57 AM CDT Plan of Treatment Health Maintenance [...] Vaccine (#1) 2024 07/26/2023, 2021 Lipid Panel 12/27/2025 12/27/2024, 04/2 12/2023, 08/13/2023, Additional history exists Procedures Procedure Name Priority Date/Time Associated Diagnosis Comments NM MPI SPECT (REST AND/OR STRESS) MULTIPLE STUDIES Schedule Routine, Read Routine (OP Routine) 01/03/2025 12:46 PM CDT Recurrent chest pain Coronary artery disease of [place] artery of [place] heart with stable angina pectoris POCT LIPID PANEL Routine 12/27/2024 8:35 AM CDT Coronary artery disease of [place] artery of [place] heart with stable angina pectoris Hyperlipidemia LDL goal <70 from Last 3 Months Results * NM MPI SPECT (Rest and/or Stress) Multiple Studies (01/03/2025 12:46 PM CDT) Anatomical Region Laterality Modality Body N/A Nuclear Medicine 01/03/2025 7:16 AM CDT Narrative 01/04/2025 7:56 AM CDT [facility] Cardiology [address], [place] [address] [address], [place] [address] P:[phone] P:[phone] MPI Imaging Report Patient Name: BLAIRE OWENS W : 1955 Study Date: 01/03/2025 7:16:39 AM Gender: M Tech: [facility] Location: [facility] Provider: ALBER HO Height(Cm): 175.3 BSA: Weight(Kg): 106.9 BMI: 34.79 Order Provider: ALBER HO PHYSICIAN: Referring Physician: Dr. Sharma. HCG Physician: Karlos Ho M.D. Interpreting Physician: Blaire Burgess M.D.,F.A.C.C. Stress Supervision: Davidson Montiel M.D., F.A.C.C. PROCEDURES: Exercise SPECT Report: Myocardial perfusion imaging with Tc99m Sestamibi SPECT at rest and stress post exercise using the Praveen protocol. INDICATIONS: Hypertension, Diabetes, Family Hx CAD, High Cholesterol, MATT, R07.9 Chest pain, unspecified, and I25.118 Atherosclerotic heart disease of [place] coronary artery with other forms of angina pectoris. FINDINGS: Procedure: One day rest/stress protocol was used. Tc99m Sestamibi injected IV at rest was 12.8 millicuries 37.6 millicuries of Tc99m Sestamibi injected IV at peak stress Patient had no symptoms during stress test. Baseline heart rate was 82 BPM Peak heart rate was 142 BPM Max projected heart rate was 153 Percent predicted max heart rate achieved was 93 % Exercise Time 9:20 min Baseline blood pressure was 134/86 mmHg Peak blood pressure 168/74 mmHg Termination: Fatigue. Resting ECG: Sinus rhythm. Low voltage in precordial leads. Delayed R-wave progression. Arrhythmia: Occasional PVCs. Perfusion Findings: Normal perfusion imaging. No definite fixed or reversible defects. A TID of 0.83 was automatically calculated. LV Function: Global left ventricular function is normal. Left Ventricular Ejection Fraction is 60 %. CONCLUSIONS: Normal perfusion imaging. No definite fixed or reversible defects. A TID of 0.83 was automatically calculated. Global left ventricular function is normal. Left Ventricular Ejection Fraction is 60 %. Negative EKG portion of treadmill nuclear stress test. Correlate with MPI. Electronically Signed By: Davidson Montiel MD, [facility] 01/03/2025 3:07:50 PM CDT Electronically Signed By: Blaire Burgess MD, [facility] 01/04/2025 7:26:15 AM CDT Procedure Note Blaire Burgess MD - 01/04/2025 [facility] Cardiology [address] [facility] [address] [id number] [address], [place], [place] [address] P:[phone] P:[phone] MPI Imaging Report Patient Name: BLAIRE OWENS W : 1955 Study Date: 01/03/2025 7:16:39 AM Gender: M Tech: [facility] Location: [facility] Provider: ALBER HO Height(Cm): 175.3 BSA: Weight(Kg): 106.9 BMI: 34.79 Order Provider: ALBER HO PHYSICIAN: Referring Physician: Dr. Sharma. HCG Physician: Karlos Ho M.D. Interpreting Physician: Blaire Burgess M.D.,F.A.CAlhajiCAlhaji Stress Supervision: Davidson Montiel M.D., F.A.CAmbrosio. PROCEDURES: Exercise SPECT Report: Myocardial perfusion imaging with Tc99m Sestamibi SPECT at rest and stresspost exercise using the Praveen protocol. INDICATIONS: Hypertension, Diabetes, Family Hx CAD, High Cholesterol, MATT, R07.9 Chestpain, unspecified, and I25.118 Atherosclerotic heart disease of [place] coronaryartery with other forms of angina pectoris. FINDINGS: Procedure: One day rest/stress protocol was used. Tc99m Sestamibi injected IV at rest was 12.8 millicuries 37.6 millicuries of Tc99m Sestamibi injected IV at peak stress Patient had no symptoms during stress test. Baseline heart rate was 82 BPM Peak heart rate was 142 BPM Max projected heart rate was 153 Percent predicted max heart rate achieved was 93 % Exercise Time 9:20 min Baseline blood pressure was 134/86 mmHg Peak blood pressure 168/74 mmHg Termination: Fatigue. Resting ECG: Sinus rhythm. Low voltage in precordial leads. Delayed R-waveprogression. Arrhythmia: Occasional PVCs. Perfusion Findings: Normal perfusion imaging. No definite fixed or reversible defects. A TIDof 0.83 was automatically calculated. LV Function: Global left ventricular function is normal. Left Ventricular EjectionFraction is 60 %. CONCLUSIONS: Normal perfusion imaging. No definite fixed or reversible defects. A TIDof 0.83 was automatically calculated. Global left ventricular function is normal. Left Ventricular EjectionFraction is 60 %. Negative EKG portion of treadmill nuclear stress test. Correlate withMPI. Electronically Signed By: Davidson Montiel MD, [facility] 01/03/2025 3:07:50 PM CDT Electronically Signed By: Blaire Burgess MD, [facility] 01/04/2025 7:26:15 AM CDT us Alber Ho MD IM NM PROCEDURES Final R esult * POCT lipid panel (12/27/2024 8:35 AM CDT) Cholesterol, POC 108 mg/dL Comment:GLU = 180 HDL, POC 23 mg/dL Triglycerides, POC 210 mg/dL LDL Cholesterol POC 43 mg/dL Chol/HDL Ratio, POC 1.9 Non-HDL Cholesterol, POC 85 mg/dL Cholesterol Total, POC 108 mg/dL Capillary blood 12/27/2024 8 :35 AM CDT us Alber Ho MD POINT OF CARE TEST ORDERA BLES Final Result from Last 3 Months Insurance [facility] [employer] CHOICE MEDICARE PPO [place] [id number] [facility] Care Teams Air Carrier Maintenance Inspector Relationship Specialty Start Date End Date Blaire Sharma MD PCP - General 01/15/17
--- OUTSIDE RECORDS SUMMARY | 2025-01-24 16:05 | XMS_ITS | Clinical Summary ---
Author Organization [facility] Address [facility] [place] [address] Care Team Providers Care General Milling Superintendent Name Role Phone Unavailable Primary Care Provider [...] Vaccine ( - 2023-2 5 season) 2024 RSV Immunization or 60+ Years (1 [...]
--- OUTSIDE RECORDS SUMMARY | 2025-01-24 16:05 | XMS_ITS | Encounter Summary ---
Author Organization [facility] Address [address] [place] [address] Care Team Providers Care Aviation Boatswain'S Mate Name Role Phone Alexandre Sharma MD Primary Care Provider [phone] [phone] Encounter Details Date Type Department Care Team (Late st Contact Info) Description 02/12/2017 Orders Only [facility] ProviderRichi MD [address] [place] [address] Social History Tobacco Use Types Packs/Day Years Used Date Smoking Tobacco: Never Alcohol Use Standard Drinks/Week Comments No 0 (1 standard drink = 0.6 oz pur e alcohol) Sex and Gender Information Value Date Recorded Sex Assigned at Not on file 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 07/26/2022 07/26/2022 11/23/2022 3:[address] documented as of this encounter Care Teams Aviation Boatswain'S Mate Relationship Specialty Start Date End Date Alexandre Sharma MD PCP - General 01/15/17 documented as of this encounter
--- OUTSIDE RECORDS SUMMARY | 2025-01-24 16:05 | XMS_ITS | Encounter Summary ---
Author Organization [facility] [employer] [employer] [facility] Address [address] [place] [address] Care Team Providers Care Sock Folder Name Role Phone Unavailable Primary Care Provider Unavailabl e Reason for Referral * Laboratory Services (Routine) - Open Specialty Diagnoses / Procedures Referred By Kasey brown Referred To Contact Diagnoses Erythrocytosis Procedures JAK2 MUTATION Arturo Albert MD [address] [place] [address] Phone: tel: fax: Referral ID Status Reason Start Date Expiration Date Visits Re quested Visits Authorized [id number] Open 01/24/2025 02/24/2026 1 1 Reason for Visit * Reason Comments Establish Care Encounter Details Date Type Department Care Team (Late st Contact Info) Description 01/24/2025 1:30 PM CDT Office Visit [facility] Oncology and Hematology - Jose Carlos [address] [place] [address] [address] [place] [address] Arturo Albert MD [address] [place] [address] Erythrocytosis (Primary Dx) Social History Tobacco Use Types Packs/Day Years Used Date Smoking Tobacco: Never Smokeless Tobacco: Never Alcohol Use Standard Drinks/Week Comments Never 0 (1 standard drink = 0.6 oz pur e alcohol) Sex and Gender Information Value Date Recorded Sex Assigned at Not on file 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 Gender Identity Not on file Sexual Orientation Not on file documented as of this encounter Last Filed Vital Signs Vital Sign Reading Time Taken Comments Blood Pressure 144/79 01/24/2025 1:58 PM CDT Pulse 75 01/24/2025 1:52 PM CDT Temperature 36.3 C (97.3 F) 01/24/2025 1:52 PM CDT Respiratory Rate 15 01/24/2025 1:52 PM CDT Oxygen Saturation 93% 01/24/2025 1:52 PM CDT Inhaled Oxygen Concentration - - Weight 107 kg (236 lb) 01/24/2025 1:52 PM CDT Height 175.3 cm (5' 9 ) 01/24/2025 1:52 PM CDT Body Mass Index 34.85 01/24/2025 1:52 PM CDT documented in this encounter Progress Notes * Arturo Albert MD - 01/24/2025 2:36 PM CDT Hematology-oncology consult Note Requesting Physician Alexandre Sultana MD Primary Care Physician No primary care provider on file. Problem list There is no problem list on file for this patient. Previous TREATMENT ? Measurable Disease ? Reason for Visit Alexandre Owens is a 69 y.o. male who was referred for consultation for erythrocytosis. History of present illness This is a 69-year-old obese male with history of coronary artery disease status post stent placement in 2011 along with history of heart attack, diabetes, hyperlipidemia, hypothyroidism andhypertension referred to me for erythrocytosis. He denies any history of smoking and COPD. He has history of sleep apnea but has not been using CPAP machine for the last 1 year duration. He has gained 40 pound weight in last 1 year duration. Denies use of testosterone replacement therapy. Currentlyhe is on Plavix. He denies any previous history of stroke and thromboembolic events. Denies any other new complaints. Past Medical History Past Medical History: Diagnosis Date Diabetes mellitus (CMS/HCC) Hypertension Tinnitus Coronary artery disease status post stent placement in 2011 Hypothyroidism Hyperlipidemia Surgical History Past Surgical History: Procedure Laterality Date HX GALLBLADDER SURGERY 2009 HX HEART CATHETERIZATION HX KNEE ARTHROSCOPY Bilateral both HX VASECTOMY Medications Current Outpatient Medications Medication Sig Dispense Refill metoprolol succinate (TOPROL XL) 50 mg Extended Release 24 hour tablet Take 50 mg by mouth daily. metFORMIN (GLUCOPHAGE XR) 500 mg Extended Release 24 hour tablet Take 1 Tablet by mouth daily. levothyroxine 88 mcg tablet Take 1 Tablet by mouth daily. Trulicity 1.5 mg/0.5 mL injection Inject 1.5 mg by subcutaneous injection every 7 days. atorvastatin (LIPITOR) 40 mg tablet Take 40 mg by mouth daily. LISINOPRIL ORAL Take 10 mg by mouth daily. empagliflozin (Jardiance) 25 mg tablet Take 25 mg by mouth daily in the morning. pantoprazole (PROTONIX) 40 mg Tablet, Delayed Release (E.C.) Take 40 mg by mouth daily. sucralfate (CARAFATE) 1 gram tablet Take 1 Gram by mouth daily. clopidogreL (PLAVIX) 75 mg Tablet Take 75 mg by mouth daily. No current facility-administered medications for this visit. Allergies No Known Allergies Immunizations: Immunization History Administered Date(s) Administered ([employer]ix[employer])(12 YR UP) COVID-19 VACCINE - EMERGENCY USE AUTHORIZATION, MRNA, [id number]) 30 MCG/0.3 MLIM SUSP 10/16/2020, 11/06/2020 Family History Family History Problem Relation Name Age of Onset Heart Disease Father Diabetes Father Pancreatic Cancer Mother Heart Disease Mother Diabetes Mother Heart Disease Brother Diabetes Sister Heart defect Child No Known Problems Child No Known Problems Child Social History Social History Tobacco Use Smoking status: Never Smokeless tobacco: Never Substance Use Topics Alcohol use: Never Review of Systems Constitutional: Patient did not mention fever; no night sweats; no anorexia; no weight loss; no fatique NEENT: Patient did not mention headache; no change in vision; no change in hearing; no sore throat;no dysphagia Respiratory: Patient did not mention shortness of breath; no pleuritic chest pain; no cough; no hemoptysis Cardiac: Patient did not mention cardiac-like chest pain; no palpitations; no orthopnea; no PND; noDOE GI: Patient did not mention abdominal pain; no nausea; no vomiting; no diarrhea; no hematochezia; no melena : Patient did not mention dysuria; no frequency; no hesitancy; no hematuria MFT: Musculosketetal: Patient did not mention bone pain; no arthralgia; no joint swelling; no myalgia; Skin: Patient did not mention pruritis; no rash; no petechiae; no ecchymoses Endocrine: Patient did not mention polydipsia; no polyuria; no unusual weight gain Neuro: Patient did not mention headache; no change in vision; no sensory changes; no muscle weakness; no confusion; no seizures Psych: Patient did not mention anxiety; no depression; Physical Exam Vitals: As per nursing note Constitutional: Well developed, well nourished, no acute distress, non-toxic appearance Teeth and gum. No signs of infection or swelling. Eyes: PERRL, conjunctiva normal HEENT: Atraumatic, external ears normal, nose normal, oropharynx moist, no pharyngeal exudates. no sinus tenderness Neck- normal range of motion, no tenderness, supple Respiratory: No respiratory distress, normal breath sounds, no rales, no wheezing Cardiovascular: Normal rate, normal rhythm, no murmurs, no gallops, no rubs GI: Soft, nondistended, normal bowel sounds, nontender, no splenomegaly, no hepatomegaly, no mass, no rebound, no guarding : No costovertebral angle tenderness Musculoskeletal: No edema, no tenderness, no deformities. Back- no tenderness Integument: Well hydrated, no rash, Digits and nails inspection normal Lymphatic: No lymphadenopathy noted Neurologic: Alert & oriented x 3, CN 2-12 normal, normal motor function, normal sensory function, no focal deficits noted Psychiatric: Speech and behavior appropriate ? labs No results found for this or any previous visit (from the past 24 hours). Labs from August 2024 showed hematocrit 57.5 hemoglobin 18.7 WBC 8.3 Pathology ? Imaging & Other Studies Performance Status? Assessment / Plan: ? Erythrocytosis. This is a 69-year-old obese male with history of sleep apnea and currently not been using CPAP machine for the last year duration. He denies any history of smoking and COPD.He has gained 40 pound weight in last 1 year duration. He did has any previous history of stroke and blood clot. He had a history of heart attack in 2012 status post stent placement x 2. He is taking Plavix since then. Labs noted. I have discussed the differential diagnosis of erythrocytosis. In this case it is likely secondary to sleep apnea and obesity. I will order the workup for primary polycythemia that will include JAK2 mutation and erythropoietin level. He will continue Plavix. Based on the hematocrit we will perform phlebotomy to keep hematocrit less than 50. I will discuss the finding with patient in next 4 weeks. I have answered all the questions the patient satisfaction. Coronary artery disease status post stent placement. He is on Plavix and asymptomatic. Type 2 diabetes. Patient is on metformin and Jardiance. Hypothyroidism. He is on levothyroxine. Hyperlipidemia. Patient is on Lipitor. Hypertension. He is on metoprolol. Thank you very much for allowing me to participate in Alexandre Owens's evaluation and management. Please feel free to contact if I can be of any further assistance in your patient???s care requiring hematology or oncology evaluation. Sincerely, ? ? Arturo Albert M.D. cell TOBACCO COUNSELING He is not a tobacco/nicotine user. Arturo Albert MD ,01/24/2025 2:36 PM ? Total time spent 60 minutes, two third of the total time spent counseling patient [id number]. CC:?Alexandre Sharma MD documented in this encounter Plan of Treatment Upcoming Encounters Date Type Department Care Team (Late st Contact Info) Description 02/21/2025 4:00 PM CDT Telephone Check Up [facility] Oncology and Hematology - Jose Carlos [address] [facility] [address] [place] [address] Arturo Albert MD [address] [facility] [address] [facility] [address] [place] [address] Scheduled Orders Name Type Priority Associated Diagnoses Orde r Schedule CBC WITH DIFFERENTIAL Lab Stat Erythrocytosis Expected: 01/24/2025, Expires: 01/24/2026 COMPREHENSIVE METABOLIC PANEL Lab Stat Erythrocytosis Expected: 01/24/2025, Expires: 01/24/2026 JAK2 MUTATION Lab Routine Erythrocytosis Expected: 01/24/2025, Expires: 01/24/2026 ERYTHROPOIETIN LEVEL Lab Routine Erythrocytosis Expected: 01/24/2025, Expires: 01/24/2026 documented as of this encounter Visit Diagnoses Diagnosis Erythrocytosis- Primary Reserved for inherently not codable concepts WITHOUT codable children documented in this encounter
--- OUTSIDE RECORDS SUMMARY | 2025-01-24 16:05 | XMS_ITS | Encounter Summary ---
Author Organization [facility] Address [address] [place] [address] Care Team Providers Care Ballaster Name Role Phone Alexandre Sharma MD Primary Care Provider [phone] [phone] Encounter Details Date Type Department Care Team (Late st Contact Info) Description 01/05/2025 Results Follow-Up [facility] Cardiology at [address] [place] [address] Jimy Booker MD [address] [address] Social History Tobacco Use Types Packs/Day Years Used Date Smoking Tobacco: Never Cigarettes Smokeless Tobacco: Never Alcohol Use Standard Drinks/Week Comments No 0 (1 standard drink = 0.6 oz pur e alcohol) Sex and Gender Information Value Date Recorded Sex Assigned at Not on file 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
--- OUTSIDE RECORDS SUMMARY | 2025-01-24 16:05 | XMS_ITS | Referral Summary ---
Author Organization [facility] [address] [place] [address] [address] [facility] [address] [place] [address] Care Team Providers Care Payroll Professional Name Role Phone Blaire Sharma MD Primary Care Provider [phone] Encounters Date Type Department Care Team Description 01/08/[address] [facility] Medical [facility] Cardiology [address] [place] [address] [address] [place] [address] Alber Ho MD 01/05/2025 Results Follow-Up [facility] Cardiology at [address] [place] [address] Alber Ho MD 01/03/2025 11:15 AM CDT Ancillary Procedure [facility] Cardiology [address] [place] [address] [address] [place] [address] Recurrent chest pain; Coronary artery disease of [place] artery of [place] heart with stable angina pectoris 12/27/2024 8:00 AM CDT Office Visit [facility] Cardiology [address] [place] [address] [address] [place] [address] Alber Ho MD Recurrent chest pain (Primary Dx); Coronary artery disease of [place] artery of [place] heart with stable angina pectoris; Essential hypertension; Hyperlipidemia LDL goal <70; CARL (obstructive sleep apnea) from Last 3 Months Allergies No known active allergies Medications pantoprazole DR (PROTONIX) 40 mg EC tablet take 1 tablet by oral route 2 times every day 30 3 06/23/20 13 Active nitroglycerin (NITROSTAT) 0.[address] 1 tablet by sublingual route once at 1st sign of attack; may repeat every 5 minutes up to 3 tabs; if norelief seek medical help 11 1107/04/20 14 Active sucralfate (CARAFATE) 1 gram tablet Take 1 tablet (1 g total) by mouth daily Active aspirin 81 mg enteric coated tablet Take 1 tablet (81 mg total) by mouth daily Active metFORMIN XR (GLUCOPHAGE XR) 500 mg 24 hr tablet Take 1 tablet (500 mg total) by mouth daily with breakfast 07/15/20 Active Euthyrox 88 mcg tablet Take 1 [...] artery disease of n ative artery of [place] heart with stable angina pectoris 07/20/2017 Essential [...] on file 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 Gender Identity Not on file Sexual Orientation [...] 12/27/2024 7:57 AM CDT Plan of Treatment Not on file Procedures Procedure Name Priority Date/Time Associated Diagnosis Comments NM MPI SPECT (REST AND/OR STRESS) MULTIPLE STUDIES Schedule Routine, Read Routine (OP Routine) 01/03/2025 12:46 PM CDT Recurrent chest pain Coronary artery disease of [place] artery of [place] heart with stable angina pectoris POCT LIPID PANEL Routine 12/27/2024 8:35 AM CDT Coronary artery disease of [place] artery of [place] heart with stable angina pectoris Hyperlipidemia LDL goal <70 from Last 3 Months Results * NM MPI SPECT (Rest and/or Stress) Multiple Studies (01/03/2025 12:46 PM CDT) Anatomical Region Laterality Modality Body N/A Nuclear Medicine 01/03/2025 7:16 AM CDT Narrative 01/04/2025 7:[address] [facility] Cardiology [address], [place] [address] [address] [facility] [address], [place] [address] P:[phone] P:[phone] MPI Imaging Report Patient Name: BLAIRE OWENS W : 1955 Study Date: 01/03/2025 7:16:39 AM Gender: M Tech: [facility] Location: [facility] Provider: ALBER HO Height(Cm): 175.3 BSA: [...] unspecified, and I25.118 Atherosclerotic heart disease of [place] coronary artery with other forms of angina [...] MPI. Electronically Signed By: Davidson Montiel MD, [facility] 01/03/2025 3:07:50 PM CDT Electronically Signed By: Blaire Burgess MD, [facility] 01/04/2025 7:26:15 AM CDT Procedure Note Blaire Burgess MD - 01/04/2025 [facility] Cardiology [address] [facility] [address] [id number] [address] [facility] [address], [place] [address] P:[phone] P:[phone] MPI Imaging Report Patient Name: BLAIRE OWENS W : 1955 Study Date: 01/03/2025 7:16:39 AM Gender: M Tech: [facility] Location: [facility] Provider: ALBER HO Height(Cm): 175.3 BSA: Weight(Kg): 106.9 BMI: 34.79 Order Provider: ALBER HO PHYSICIAN: Referring Physician: Dr. Sharma. HCG Physician: Karlos Ho M.D. Interpreting Physician: Blaire Burgess M.D.,F.A.C.C. Stress Supervision: Davidson Montiel M.D., F.A.CAlhajiC. PROCEDURES: Exercise SPECT Report: Myocardial perfusion imaging with Tc99m Sestamibi SPECT at rest and stresspost exercise using the Praveen protocol. INDICATIONS: Hypertension, Diabetes, Family Hx CAD, High Cholesterol, MATT, R07.9 Chestpain, unspecified, and I25.118 Atherosclerotic heart disease of [place] coronaryartery with other forms of angina pectoris. [...] withMPI. Electronically Signed By: Davidson Montiel MD, [facility] 01/03/2025 3:07:50 PM CDT Electronically Signed By: Blaire Burgess MD, [facility] 01/04/2025 7:26:15 AM CDT us Alber Ho MD [facility] PROCEDURES Final R esult * POCT lipid panel (12/27/2024 8:35 AM CDT) Cholesterol, POC 108 mg/dL Comment:GLU = 180 HDL, POC 23 mg/dL Triglycerides, POC 210 mg/dL LDL Cholesterol POC 43 mg/dL Chol/HDL Ratio, POC 1.9 Non-HDL Cholesterol, POC 85 mg/dL Cholesterol Total, POC 108 mg/dL Capillary blood 12/27/2024 8 :35 AM CDT Alber Ho MD POINT OF CARE TEST ORDERA BLES Final Result from Last 3 Months Insurance [facility] H[facility]/PPO Address: [address] [address] [place] [address] [employer] CHOICE MEDICARE [place] [address] [facility] H[facility]/PPO Address: [address] [address] [place] [address] Care Teams Payroll Professional Relationship Specialty Start Date End Date Blaire Sharma MD PCP - General 01/15/17
--- OUTSIDE RECORDS SUMMARY | 2025-01-24 16:05 | XMS_ITS | Clinical Summary ---
Author Organization [facility] Chris Morelos Address [address] [place] [address] Care Team Providers Care Journeyman Press Operator Name Role Phone Unavailable Primary Care Provider Unavailabl e Allergies No known active allergies Medications sucralfate (CARAFATE) 1 gram tablet Take 1 Gram by mouth daily. Active metoprolol succinate (TOPROL XL) 50 mg Extended Release 24 hour tablet Take 50 mg by mouth daily. 5 Active metFORMIN (GLUCOPHAGE XR) 500 mg Extended Release 24 hour tablet Take 1 Tablet by mouth daily. 5 Active levothyroxine 88 mcg tablet Take 1 Tablet by mouth daily. 5 Active Trulicity 1.5 mg/0.5 mL injection Inject 1.5 mg by subcutaneous injection every 7 days. 5 Active clopidogreL (PLAVIX) 75 mg Tablet Take 75 mg by mouth daily. Active atorvastatin (LIPITOR) 40 mg tablet Take 40 mg by mouth daily. 5 Active LISINOPRIL ORAL Take 10 mg by mouth daily. Active empagliflozin (Jardiance) 25 mg tablet Take 25 mg by mouth daily in the morning. Active pantoprazole (PROTONIX) 40 mg Tablet, Delayed Release (E.C.) Take 40 mg by mouth daily. Active Active Problems No known active problems Encounters Date Type Department Care Team Description 01/24/2025 1:30 PM CDT Office Visit [facility] Oncology and Hematology - Jose Carlos [address] [place] [address] Arturo Albert MD Erythrocytosis (Primary Dx) from Last 3 Months Family History Medical History Relation Name Comments Heart Disease Brother Heart defect Child 1 No Known Problems Child 2 No Known Problems Child 3 Diabetes Father Heart Disease Father Diabetes Mother Heart Disease Mother Pancreatic Cancer Mother Diabetes Sister Relation Name Status Comments Brother Child 1 Alive Child 2 Alive Child 3 Alive Father Mother Sister Alive Social History Tobacco Use Types Packs/Day Years Used Date Smoking Tobacco: Never Smokeless Tobacco: Never Alcohol Use Standard Drinks/Week Comments Never 0 (1 standard drink = 0.6 oz pur e alcohol) Sex and Gender Information Value Date Recorded Sex Assigned at Not on file 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 Gender Identity Not on file Sexual Orientation [...] Mass Index 34.85 01/24/2025 1:52 PM CDT Plan of Treatment Upcoming Encounters Date Type Department Care Team (Late st Contact Info) Description 02/21/2025 4:00 PM CDT Telephone Check Up [facility] Oncology and Hematology - Connell [address] [facility] [address] [place] [address] Arturo Albert MD [address] [facility] [address] [place] [address] Health Maintenance Due Date Last Done Comments DTAP/TDAP/TD VACCINES (1 - Tdap) 1976 COLORECTAL SCREENING 2002 Colorectal Cancer Screening 2002 FIT-DNA Q 3 years 2002 FIT/FOBT Q 1 year 2002 Flex Sig/CT Colonography Q 5 years 2002 PNEUMOCOCCAL VACCINE 50+ YEA RS (1 of 1 - PCV) 2007 ZOSTER VACCINE (1 of 2) 2007 INFLUENZA VACCINE (#1) 2024 COVID-19 Vaccine ( season) 2024, 10/16/2020 Preventative Visit- Commercial 10/18/2024 RSV VACCINE (60+ or ) (1 - 1-dose 75+ series) 2032 Insurance [facility] CHOICE [id number] MEDICARE PART A HOSPITAL ONLY [employer] CHOICE [facility]
[2025-01-24 18:42] LABS: Alanine Aminotransferase 54 U/L (6-50); Albumin Level 4.5 g/dL (3.5-5.1); Alkaline Phosphatase 87 U/L (38-126); Anion Gap 10 mmol/L (4-12); Aspartate Amino Transferase 56 U/L (17-59); Bilirubin,Total 0.6 mg/dL (0.2-1.3); Blood Urea Nitrogen 15 mg/dL (9-20); Calcium 9.7 mg/dL (8.4-10.2); Carbon Dioxide 22 mmol/L (22-30); Chloride 105 mmol/L (98-107); Estimated Glomerular Filt Rate > 60; Glucose 148 mg/dL (65-110); Potassium 4.5 mmol/L (3.4-5.0); Sodium 137 mmol/L (137-145)
[2025-01-29 15:23] LABS: Erythropoietin (EPO) 33.6 mIU/mL (2.6-18.5)
== END 2025-01-24 14:26 | disposition home or self-care (01) ==
PROVIDERS: PCP Family Medicine; Visit Provider Internal Medicine Hematology & Oncology
DX: D75.1 Secondary polycythemia (principal)
CPT/HCPCS: 36415; 80053; 81270; 82668; 85025

== ENCOUNTER 2025-03-09 06:49 | Outpatient (CLI) | payer MEDICARE, SELFPAY ==
--- NOTE | ~2025-03-09 | CT_ITS ---
Clinical Indication: Kidney tumor CT Scan of the Chest, Abdomen, and Pelvis with Contrast: Technique: Contiguous sections were acquired throughout the chest, abdomen, and pelvis after intraven ous administration of 100 cc of Omnipaque 350. Dose reduction technique was used on this scan by uti lizing automated exposure control and iterative reconstruction technique. The dose-length product (DL P) was 1580.81 mGy-cm. Findings: There is no evidence of any significant mediastinal, hilar or axillary lymphadenopathy. The mediastin al soft tissues and vascular structures appear normal. There is no evidence of pleural or pericardial effusion. 3 mm peripheral right middle lobe nodule present (axial image 80). Calcified left lower lobe granulom a present. There is diffuse hepatic steatosis. Cholecystectomy clips are present. The spleen, pancreas, and adre nal glands are within normal limits. Right renal cyst present. 2 mm nonobstructing left renal stone n oted. No suspicious renal mass seen. Possible area of cortical scarring or postoperative change of th e left kidney. There are atherosclerotic calcifications of the aorta. No lymphadenopathy. No bowel obstruction or bowel wall thickening. There is no evidence to suggest acute appendicitis. Small urinary bladder diverticula are noted. No pelvic mass seen. No ascites. Bilateral L5 pars interarticularis defects are present, with grade 1 anterolisthesis of L5 over S1. Impression: No evidence for active malignancy or metastatic disease. Diffuse hepatic steatosis. 3 mm right middle lobe pulmonary nodule, most likely benign. Consider 12 month follow-up CT for a hig h-risk patient. Small urinary bladder diverticula. Bilateral L5 pars interarticularis defects. Reviewed, dictated and finalized at [facility]. Impression: No evidence for active malignancy or metastatic disease. Diffuse hepatic steatosis. 3 mm right middle lobe pulmonary nodule, most likely benign. Consider 12 month follow-up CT for a high-risk patient. Small urinary bladder diverticula. Bilateral L5 pars interarticularis defects.
--- OUTSIDE RECORDS SUMMARY | 2025-03-09 06:55 | XMS_ITS | Referral Summary ---
Author Organization [facility] [place] [address] [place] [address] [address] [place] [address] 162 [place] [address] Care Team Providers Care Motorsports Technician Name Role Phone Blaire Sharma MD Primary Care Provider [phone] [phone] Encounters Date Type Department Care Team Description 01/08/2025 Telephone [facility] Medical [facility] Cardiology [address] [place] [address] 162 [address] [place] [address] Alber Ho MD 01/05/2025 Results Follow-Up [facility] Medical Group Cardiology at [address] [place] [address] Alber Ho MD NM MPI SPECT (Rest and/or Stress) Multiple Studies 01/03/2025 11:15 AM CDT Ancillary Procedure [facility] Cardiology [address] [place] [address] 162 [address] [place] [address] Recurrent chest pain; Coronary artery disease of lime artery of lime heart with stable angina pectoris 12/27/2024 8:00 AM CDT Office Visit [facility] Cardiology [address] [place] [address] 162 [address] [place] [address] Alber Ho MD Recurrent chest pain (Primary Dx); Coronary artery disease of lime artery of lime heart with stable angina pectoris; Essential hypertension; [...] mg total) by mouth daily 023 Active clopidogreL (PLAVIX) 75 mg tablet Take 1 tablet by mouth once daily 90 tablet 2 024 Active atorvastatin (LIPITOR) 40 mg tabletIndicatio ns:Hyperlipidem ia associated with type 2 diabetes mellitus (HCC) Take 1 tablet by mouth once daily 90 tablet 025 Active metoprolol XL (TOPROL-XL) 50 mg extended release tablet Take 1 tablet by mouth once daily 90 tablet 025 Active lisinopriL (PRINIVIL,ZESTR IL) 10 mg tabletIndicatio ns:Essential hypertension Take 1 tablet by mouth once daily 90 tablet 3 025 Active lisinopriL (PRINIVIL,ZESTR IL) 10 mg tabletIndicatio ns:Essential hypertension Take 1 tablet (10 mg total) by mouth daily 90 tablet 3 024 2024 Discontinued Active Problems Problem Noted Date Diagnosed Date CARL (obstructive sleep apnea) 09/20/2018 Coronary artery disease of n ative artery of lime heart with stable angina pectoris 07/20/2017 Essential [...] on file 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 Gender Identity Not on file Sexual Orientation [...] Recurrent chest pain Coronary artery disease of lime artery of lime heart with stable angina pectoris POCT LIPID PANEL Routine 12/27/2024 8:35 AM CDT Coronary artery disease of lime artery of lime heart with stable angina pectoris Hyperlipidemia LDL goal <70 from Last 3 Months Results * NM MPI SPECT (Rest and/or Stress) Multiple Studies (01/03/2025 12:46 PM CDT) Anatomical Region Laterality Modality Body N/A Nuclear Medicine 01/03/2025 7:16 AM CDT Narrative 01/04/2025 7:56 AM CDT [facility] Medical Group Cardiology [address], [place] [address] [address] [facility] [address], [place] [address] P:[phone] P:[phone] MPI Imaging Report Patient Name: BLAIRE OWENS W : 1955 Study Date: 01/03/2025 7:16:39 AM Gender: M Tech: DANII [facility] Location: [facility] Provider: ALBER HO Height(Cm): 175.3 BSA: Weight(Kg): [...] unspecified, and I25.118 Atherosclerotic heart disease of lime coronary artery with other forms of angina [...] MPI. Electronically Signed By: Davidson Montiel MD, [facility] 01/03/2025 3:07:50 PM CDT Electronically Signed By: Blaire Burgess MD, [facility] 01/04/2025 7:26:15 AM CDT Procedure Note Blaire Burgess MD - 01/04/2025 [facility] Medical Group Cardiology [address] [facility] [address] [address] [address] [facility] [address], [place] [address] P:[phone] P:[phone] MPI Imaging Report Patient Name: BLAIRE OWENS W : 1955 Study Date: 01/03/2025 7:16:39 AM Gender: M Tech: STARLA FOYMT Location: [facility] Provider: ALBER HO Height(Cm): 175.3 BSA: Weight(Kg): 106.9 BMI: 34.79 Order Provider: ALBER HO PHYSICIAN: Referring Physician: Dr. Sharma. HCG Physician: Karlos Ho M.D. Interpreting Physician: Blaire Burgess M.D.,RosauraCCeline Stress Supervision: Davidson Montiel M.D., Cami. PROCEDURES: Exercise SPECT Report: Myocardial perfusion imaging with Tc99m Sestamibi SPECT at rest and stresspost exercise using the Praveen protocol. INDICATIONS: Hypertension, Diabetes, Family Hx CAD, High Cholesterol, MATT, R07.9 Chestpain, unspecified, and I25.118 Atherosclerotic heart disease of lime coronaryartery with other forms of angina pectoris. [...] withMPI. Electronically Signed By: Davidson Montiel MD, [facility] 01/03/2025 3:07:50 PM CDT Electronically Signed By: Blaire Burgess MD, [facility] 01/04/2025 7:26:15 AM CDT Alber Ho MD IMG NM PROCEDURES Final R esult * POCT [...] Final Result from Last 3 Months Insurance [facility] [employer] CHOICE MEDICARE [place] [address] [place] [address] Care Teams Motorsports Technician Relationship Specialty Start Date End Date Blaire Sharma MD PCP - General 01/15/17
--- OUTSIDE RECORDS SUMMARY | 2025-03-09 06:55 | XMS_ITS | Encounter Summary ---
Author Organization [facility] Healthcare Address [address] [place] [address] Care Team Providers Care Miscellaneous Machine Operator Name Role Phone Alexandre Sharma MD Primary Care Provider [phone] Encounter Details Date Type Department Care Team (Late st Contact Info) Description 01/05/2025 Results Follow-Up [facility] Medical Group Cardiology at [address] [place] [address] Jimy Booker MD [address] [facility] [address] [place] [id number] [place] MPI SPECT (Rest and/or Stress) Multiple Studies Social History Tobacco Use Types Packs/Day Years Used Date Smoking Tobacco: Never Cigarettes Smokeless Tobacco: Never Alcohol Use Standard Drinks/Week Comments No 0 (1 standard drink = 0.6 oz pur e alcohol) Sex and Gender Information Value Date Recorded Sex Assigned at Not on file 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
--- OUTSIDE RECORDS SUMMARY | 2025-03-09 06:56 | XMS_ITS | Encounter Summary ---
Author Organization [facility] Medical Group Address [address] [facility] [address] [place] [address] Care Team Providers Care Machine Filler Shredder Name Role Phone Alexandre Sharma MD Primary Care Provider [phone] Encounter Details Date Type Department Care Team (Late st Contact Info) Description 02/12/2017 Orders Only [facility] ProviderRichi MD [address] [place] [address] Social History Tobacco Use Types Packs/Day Years Used Date Smoking Tobacco: Never Alcohol Use Standard Drinks/Week Comments No 0 (1 standard drink = 0.6 oz pur e alcohol) Sex and Gender Information Value Date Recorded Sex Assigned at Not on file 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 07/26/2022 07/26/2022 11/23/2022 3:[address] documented as of this encounter Care Teams Machine Filler Shredder Relationship Specialty Start Date End Date Alexandre Sharma MD PCP - General 01/15/17 documented as of this encounter
--- OUTSIDE RECORDS SUMMARY | 2025-03-09 06:56 | XMS_ITS | Clinical Summary ---
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 07/20/2017 Essential hypertension 07/20/2017 GERD without esophagitis 07/20/2017 Hyperlipidemia LDL goal <70 07/20/2017 Recurrent chest pain 07/20/2017 Encounters Date Type Department Care Team Description 01/08/2025 Telephone [facility] Cardiology [address] [facility] [address] [place] [address] Alber Ho MD 01/05/2025 Results Follow-Up [facility] Cardiology at [address] [place] [address] Alber Ho MD NM MPI SPECT (Rest and/or Stress) Multiple Studies 01/03/2025 11:15 AM CDT Ancillary Procedure [facility] Cardiology [address] [facility] [address] [place] [address] Recurrent chest pain; 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 12/27/2024 8:00 AM CDT Office Visit [facility] Cardiology [address] [place] [address] Alber Ho MD Recurrent chest pain (Primary Dx); 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; Essential hypertension; [...] on file 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 Gender Identity Not on file Sexual Orientation [...] 5 season) 2024 11/06/2020, 10/16/2020 Influenza Vaccine (Season Ended) 2025 07/26/20 23, 09/09/2022 Lipid Panel 12/27/2025 12/27/2024, 04/2 12/2023, 08/13/2023, Additional history exists Procedures Procedure Name Priority Date/Time Associated Diagnosis Comments NM MPI SPECT (REST AND/OR STRESS) MULTIPLE STUDIES Schedule Routine, Read Routine (OP Routine) 01/03/2025 12:46 PM CDT Recurrent chest pain 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 POCT LIPID PANEL Routine 12/27/2024 8:35 AM CDT 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 Hyperlipidemia LDL goal <70 from Last 3 Months Results * NM MPI SPECT (Rest and/or Stress) Multiple Studies (01/03/2025 12:46 PM CDT) Anatomical Region Laterality Modality Body N/A Nuclear Medicine 01/03/2025 7:16 AM CDT Narrative 01/04/2025 7:56 AM CDT [facility] Cardiology [address], [place] [address] [address] [facility] [address], [place] [address] P:[phone] P:[phone] MPI Imaging Report Patient Name: BLAIRE OWENS W : 1955 Study Date: 01/03/2025 7:16:39 AM Gender: M Tech: DANII [facility] Location: [facility] Provider: ALBER HO Height(Cm): 175.3 BSA: [...] unspecified, and I25.118 Atherosclerotic heart disease of lone pine coronary artery with other forms of angina [...] MPI. Electronically Signed By: Davidson Montiel MD, [facility] 01/03/2025 3:07:50 PM CDT Electronically Signed By: Blaire Burgess MD, [facility] 01/04/2025 7:26:15 AM CDT Procedure Note Blaire Burgess MD - 01/04/2025 [facility] Cardiology [facility] [address] [id number] [address] [facility] [address], [address] [address] P:[phone] P:[phone] MPI Imaging Report Patient Name: BLAIRE OWENS W : 1955 Study Date: 01/03/2025 7:16:39 AM Gender: M Tech: DANII [facility] Location: [facility] Provider: ALBER HO Height(Cm): 175.3 BSA: Weight(Kg): 106.9 BMI: 34.79 Order Provider: ALBER HO PHYSICIAN: Referring Physician: Dr. Sharma. HCG Physician: Karlos Ho M.D. Interpreting Physician: Blaire Burgess M.D.,Dennis Stress Supervision: Davidson Montiel M.D., Cami. PROCEDURES: Exercise SPECT Report: Myocardial perfusion imaging with Tc99m Sestamibi SPECT at rest and stresspost exercise using the Praveen protocol. INDICATIONS: Hypertension, Diabetes, Family Hx CAD, High Cholesterol, MATT, R07.9 Chestpain, unspecified, and I25.118 Atherosclerotic heart disease of lone pine coronaryartery with other forms of angina pectoris. [...] withMPI. Electronically Signed By: Davidson Montiel MD, [facility] 01/03/2025 3:07:50 PM CDT Electronically Signed By: Blaire Burgess MD, [facility] 01/04/2025 7:26:15 AM CDT Alber Ho MD [...] Final Result from Last 3 Months Insurance [facility] HUMANA CHOICE MEDICARE PPO [facility] Care Teams Rate Quoting Operator Relationship Specialty Start Date End Date Blaire Sharma MD PCP - General 01/15/17
--- OUTSIDE RECORDS SUMMARY | 2025-03-09 06:56 | XMS_ITS | Clinical Summary ---
Author Organization [facility] Chris Morelos Address [address] [place] [address] Care Team Providers Care Mission Coordinator Name Role Phone Unavailable Primary Care Provider [...] mg by subcutaneous injection every 7 days. Active clopidogreL (PLAVIX) 75 mg Tablet Take 75 mg by mouth daily. Active atorvastatin (LIPITOR) 40 mg tablet Take 40 mg by mouth daily. Active LISINOPRIL ORAL Take 10 mg by mouth daily. Active empagliflozin (Jardiance) 25 mg tablet Take 25 mg by mouth daily in the morning. Active pantoprazole (PROTONIX) 40 mg Tablet, Delayed Release (E.C.) Take 40 mg by mouth daily. Active Active Problems No known active problems Encounters Date Type Department Care Team Description 02/21/2025 4:00 PM CDT Telephone Check Up [facility] Oncology and Hematology - Jose Carlos [address] [place] [address] Arturo Albert MD Kidney tumor (Primary Dx) 01/31/2025 Orders Only [facility] Oncology and Hematology - [place] [address] [place] [address] Arturo Albert MD 01/30/2025 External Device Data ST[facility] ABSTRACTION Provider, Abstract 01/30/2025 External Device Data [facility] ABSTRACTION Provider, Abstract 01/30/2025 External Device Data [facility] ABSTRACTION Provider, Abstract 01/26/2025 Orders Only [facility] Oncology and Hematology - Jose Carlos [address] [place] [id number] Arturo Albert MD 01/26/2025 Abstract [facility] Oncology and Hematology - Jose Carlos [address] [place] [address] Arturo Albert MD 01/24/2025 1:30 PM CDT Office Visit [facility] Oncology and Hematology - [place] [address] [place] [address] Arturo Albert MD Erythrocytosis (Primary Dx) from [...] Information Value Date Recorded Sex Assigned at Male 01/24/2025 4:24 PM CDT 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 Gender Identity Male 01/24/2025 4:24 PM CDT Sexual Orientation Straight 01/24/2025 4: 24 PM CDT Last Filed Vital Signs Vital Sign Reading [...] Care Team (Late st Contact Info) Description 03/22/2025 10:00 AM CDT Office Visit [facility] Oncology and Hematology - [place] Carlos [address] [facility] [address] [place] [address] Arturo Albert MD [address] [facility] [address] [place] [address] Health Maintenance Due Date Last Done Comments Pre-Diabetes and Diabetes Screening 1955 DTAP/TDAP/TD VACCINES (1 - Tdap) 1976 PNEUMOCOCCAL VACCINE 50+ YEA RS (1 of 2 - PCV) 1976 COLORECTAL SCREENING 2002 Colorectal Cancer Screening 2002 FIT-DNA Q 3 years 2002 FIT/FOBT Q 1 year 2002 Flex Sig/CT Colonography Q 5 years 2002 ZOSTER VACCINE (1 of 2) 2007 RSV VACCINE (60+ or ) (1 - Risk 60-74 years 1-dose series) 2017 INFLUENZA VACCINE (#1) 2024 COVID-19 Vaccine ( season) 2024, 10/16/2020 Procedures Procedure Name Priority Date/Time Associated Diagnosis Comments JAK2 EXON 12 MUTATION ANALYSIS Routine 01/24/2025 3:45 PM CDT COMPREHENSIVE METABOLIC PANEL Routine 01/24/2025 2:08 PM CDT CBC WITH AUTODIFFERENTIAL Routine 2024 1:54 PM CDT from Last 3 Months Results * JAK2 EXON 12 MUTATION ANALYSIS (01/24/2025 3:45 PM CDT) Blood us Arturo Albert MD HEMATOLOGY ORDERABLES COM Final Result * COMPREHENSIVE METABOLIC PANEL (01/24/2025 2:08 PM CDT) Blood us Arturo Albert MD CHEMISTRY ORDERABLES Final Resu lt * CBC WITH AUTODIFFERENTIAL (01/24/2025 1:54 PM CDT) Blood us Arturo Albert MD HEMATOLOGY ORDERABLES Final Res ult from Last 3 Months Insurance [employer]NA CHOICE [facility]
[2025-03-09 07:17] LABS: Estimated Glomerular Filt Rate 51
== END 2025-03-09 06:50 | disposition home or self-care (01) ==
PROVIDERS: PCP Family Medicine; Visit Provider Internal Medicine Hematology & Oncology
DX: D49.519 Neoplasm of unspecified behavior of unspecified kidney (principal); K76.0 Fatty (change of) liver, not elsewhere classified; R91.1 Solitary pulmonary nodule; N32.3 Diverticulum of bladder
CPT/HCPCS: 71260; 74177; Q9967

== ENCOUNTER 2025-07-14 09:11 | Outpatient (CLI) | payer MEDICARE, SELFPAY ==
[2025-07-14 09:57] LABS: Hemoglobin A1C 6.5 % (<5.7)
[2025-07-14 10:08] LABS: Alanine Aminotransferase 61 U/L (6-50); Albumin Level 4.5 g/dL (3.5-5.1); Alkaline Phosphatase 89 U/L (38-126); Aspartate Amino Transferase 57 U/L (17-59); Bilirubin,Total 0.9 mg/dL (0.2-1.3); Blood Urea Nitrogen 14 mg/dL (9-20); Carbon Dioxide 22 mmol/L (22-30); Chloride 105 mmol/L (98-107); Cholesterol 104 mg/dL (0-200); Estimated Glomerular Filt Rate > 60; Total Protein 7.8 g/dL (6.3-8.2); Triglycerides 113 mg/dL (<150)
[2025-07-14 10:12] LABS: MALB Creatinine Ratio 6.7 mg/g (0-30)
[2025-07-14 10:21] LABS: Anion Gap 9 mmol/L (4-12); Calcium 9.3 mg/dL (8.4-10.2); Glucose 109 mg/dL (65-110); HDL Direct 34 mg/dL; Potassium 4.4 mmol/L (3.4-5.0); Sodium 136 mmol/L (137-145)
[2025-07-14 10:45] LABS: Prostate Specific Antigen 1.8 ng/mL (< OR = 4.0); Thyroid Stimulating Hormone 2.210 uIU/mL (0.465-4.680)
== END 2025-07-14 09:12 | disposition home or self-care (01) ==
PROVIDERS: PCP Family Medicine; Visit Provider Family Medicine
DX: E11.9 Type 2 diabetes mellitus without complications (principal); E03.9 Hypothyroidism, unspecified; E11.65 Type 2 diabetes mellitus with hyperglycemia; Z12.5 Encounter for screening for malignant neoplasm of prostate
CPT/HCPCS: 36415; 80053; 80061; 82043; 83036; 84153; 84443; G0103

== ENCOUNTER 2025-07-25 06:46 | Outpatient (CLI) | payer MEDICARE, SELFPAY ==
--- NOTE | ~2025-07-25 | US_ITS ---
EXAMINATION: US [facility] DATE: 07/25/2025 07:31 INDICATION: Abdominal aortic aneurysm screening. TECHNIQUE: Grayscale, color Doppler, and pulsed Doppler images of the aorta and common iliac arteries were obtained. COMPARISON: CT 03/09/2025 FINDINGS: The aorta is normal in caliber. The right common iliac artery is normal in caliber. The left common iliac artery is normal in caliber. There is diffuse hepatic steatosis. IMPRESSION: 1. No abdominal aortic aneurysm. Reviewed, dictated and finalized at location E.
== END 2025-07-25 06:47 | disposition home or self-care (01) ==
PROVIDERS: PCP Family Medicine; Visit Provider Family Medicine
DX: Z13.9 Encounter for screening, unspecified (principal)
CPT/HCPCS: 76706